=== PATIENT | male | born 1940 | race Two or more races ===

== ENCOUNTER 2018-12-08 12:49 | Inpatient (IN) | payer MEDICARE, OTHER ==
[~2018-12-08] VITALS: Ht 157.5 cm; Wt 60.8 kg
--- NOTE | 2018-12-08 13:30 | NUR ---
patient presented to the ER "Dx w/dementia getting progressively agitated, angry and has tried to hurt family. Need help with placement". On ortiz air, breathing evenly andunlabored, ambulatory with steady gait. Connected to the monitor and pulse ox. kept comfortable, will continue to monitor accordingly.
[2018-12-08 13:48] LABS: BASOPHILS # (AUTO) 0.1 /CMM (0.0-0.2); BASOPHILS % (AUTO) 0.8 % (0.0-2.0); EOSINOPHILS % (AUTO) 6.6 % (0.0-6.0); HEMATOCRIT 45 % (39-51); HEMOGLOBIN 14.8 g/dL (13.5-17.5); LYMPHOCYTES # (AUTO) 0.5 /CMM (0.8-4.8); LYMPHOCYTES % (AUTO) 7.8 % (20.0-44.0); MEAN CORPUSCULAR HGB CONC 33 g/dl (31.0-36.0); MEAN CORPUSCULAR VOLUME 92 fL (80-96); MONOCYTES # (AUTO) 0.5 /CMM (0.1-1.30); MONOCYTES % (AUTO) 7.4 % (2.0-12.0); NEUTROPHILS # (AUTO) 5.1 /CMM (1.8-8.9); NEUTROPHILS % (AUTO) 77.4 % (43.0-81.0); PLATELET COUNT (AUTO) 278 /CMM (150-450); RED BLOOD CELL COUNT(AUTO) 4.85 MIL/uL (4.5-6.0); WHITE BLOOD COUNT (AUTO) 6.5 K/uL (4.3-11.0)
[2018-12-08 13:58] LABS: CARBON DIOXIDE 31 mmol/L (21-32); CHLORIDE 107 mmol/L (98-107); CREATININE 2.2 mg/dL (0.6-1.3); GLUCOSE 103 mg/dL (74-106); POTASSIUM 3.8 mmol/L (3.5-5.1); SODIUM SERUM 145 mmol/L (136-145); UREA NITROGEN, BLOOD 23 mg/dL (7-18)
[2018-12-08 14:03] LABS: ALANINE AMINOTRANSFERASE 20 U/L (12-78); ALBUMIN 2.9 g/dL (3.4-5.0); ALCOHOL, BLOOD < 3 mg/dL (0-0); ALKALINE PHOSPHATASE 110 U/L (46-116); ASPARTATE AMINOTRANSFERASE 29 U/L (15-37); BILIRUBIN,DIRECT 0.2 mg/dL (0.0-0.2); BILIRUBIN,TOTAL 0.7 mg/dL (0.2-1.0); TOTAL PROTEIN, SERUM 7.4 g/dL (6.4-8.2)
[2018-12-08 14:08] LABS: SALICYLATE < 0.2 mg/dL (2.8-20.0)
[2018-12-08 14:32] LABS: ACETAMINOPHEN 0 ug/ml (10-30)
[2018-12-08 14:47] LABS: APPEARANCE,URINE Clear (CLEAR); BILIRUBIN,URINE Negative (NEGATIVE); BLOOD, URINE Small Ery/uL (NEGATIVE); COLOR,URINE Yellow (YELLOW); KETONES,URINE Negative (NEGATIVE); LEUKOCYTE ESTERASE ,URINE Negative (NEGATIVE); NITRITE, URINE Negative (NEGATIVE); PROTEIN,URINE >=300 mg/dl (NEGATIVE); UGLUCOSE Negative (NEGATIVE); UROBILINOGEN,URINE 0.2 EU/dL (0.2)
[2018-12-08 14:49] LABS: BACTERIA,URINE Rare /HPF (None Seen); SQUAMOUS EPITHELIAL CELL,UR Rare /HPF (None Seen); WBC,URINE 0-2 /HPF (0-3)
--- NOTE | 2018-12-08 14:55 | NUR ---
CALLED [facility] ETA 1 HR
--- NOTE | 2018-12-08 16:30 | NUR ---
GPS/DIFFUSION OPERATOR PATIENT ADMITTED FROM ER IN STABLE CONDITION TRANSFERRED VIA WC. A/O X 2, YORUBA SPEAKING. PER 5150 PATIENT NOTED WITH AGGRESSIVE BEHAVIOR AND CONFUSION, ALSO NON COMPLIANT WITH MEDICATION. PER 1:1 ASSESSMENT PATIENT NOTED WITH EPISODES OF CONFUSION AT THIS TIME. ABLE TO MAKE NEEDS KNOWN, COOPERATIVE. NO S/S OF RESPIRATORY DISTRESS. NO COMPLAIN OF PAIN OR DISCOMFORT. NO S/S OF AGITATION OR AGGRESSIVE BEHAVIOR NOTED AT THIS TIME. NOTED WITH ELEVATED BP OF 204/98, 66. JAZLYN SALMON ADMITTING HOSPITALIST NOTIFIED WITH ORDERS TO GIVE HYDRALAZINE 50MG PO X 1, METOPROLOL 12.5MG PO X 1, COREG 3.125MG PO X 1. ALSO NOTIFIED TO JAZLYN SALMON PATIENT CURRENTLY ON WARFARIN WITH DOSE OF 2.5MG AND 5 MG PO QD, SINCE PATIENT HAS TWO DIFFERENT WARFARIN MEDICATION BOTTLE. NOTED AND CARRIED OUT. PATIENT NOTIFIED.
--- NOTE | 2018-12-08 16:30 | NUR ---
wheeled patient via wheelchair accompanied by emt in no apparent distress noted, going to GPS room 214.
[2018-12-08] MEDS ORDERED: WARF-68 PO (17:23)
[2018-12-08] MEDS ORDERED: LEVO25TA7 GT (17:23)
[2018-12-08] MEDS ORDERED: FURO-144 PO (17:26)
[2018-12-08] MEDS ORDERED: LISI10TA5 PO (17:26)
[2018-12-08] MEDS ORDERED: WARF-58 PO (17:26)
[2018-12-08] MEDS ORDERED: QUET25TA PO (17:26)
[2018-12-08] MEDS ORDERED: HYDR-4077 PO (17:26)
[2018-12-08] MEDS ORDERED: CARV3.12 PO (17:26)
[2018-12-08] MEDS ORDERED: METO25TA6 PO (17:28)
[2018-12-08] MEDS ORDERED: MEMA5TAB PO (17:28)
[2018-12-08 17:56] VITALS: BP 204/98
[2018-12-08] MEDS ORDERED: WARFARIN SODIUM 5 MG TABLET PO SCH (17:58)
[2018-12-08] MEDS ORDERED: MAGNESIUM HYDROXIDE 30 ML UDC PO PRN (18:00)
[2018-12-08] MEDS ORDERED: LORAZEPAM 0.5 MG TABLET PO PRN (18:00)
[2018-12-08] MEDS ORDERED: TEMAZEPAM 7.5 MG CAPSULE PO PRN (18:00)
[2018-12-08] MEDS ORDERED: METOPROLOL TARTRATE 25 MG TABLET PO ONE (18:00)
[2018-12-08] MEDS ORDERED: CARVEDILOL 3.125 MG TABLET PO ONE (18:00)
[2018-12-08] MEDS ORDERED: MAG HYDROX/AL HYDROX/SIMETH 30 ML UDC PO PRN (18:00)
[2018-12-08] MEDS ORDERED: hydrALAZINE HCL 50 MG TABLET PO ONE (18:00)
[2018-12-08] MEDS ORDERED: ACETAMINOPHEN 325 MG TABLET PO PRN (18:00)
[2018-12-08] MEDS ORDERED: ATOR40TA PO (18:24)
[2018-12-08] MEDS ORDERED: METOPROLOL TARTRATE 25 MG TABLET PO SCH (19:00)
[2018-12-08 20:01] VITALS: BP 155/66
[2018-12-08] MEDS: MEMANTINE HCL 5 MG TABLET PO SCH (21:39)
[2018-12-08] MEDS: ATORVASTATIN 40 MG TABLET PO SCH (21:39)
[2018-12-08] MEDS: hydrALAZINE HCL 50 MG TABLET PO SCH (21:40)
--- NOTE | 2018-12-09 | NUR ---
SUPERVISOR PARK WORKERS NOTES PT SLEEPING COMFORTABLY IN BED WITHOUT ANY ACUTE DISTRESS NOTED. KEPT HIM WARM AND COMFORTABLE AT ALL TIMES. WILL CONTINUE MONITORING FOR SAFETY.
[2018-12-09] MEDS: LEVOTHYROXINE SODIUM 25 MCG TABLET GT SCH (06:52)
[2018-12-09 08:08] LABS: ALANINE AMINOTRANSFERASE 16 U/L (12-78); ALBUMIN 2.6 g/dL (3.4-5.0); ALKALINE PHOSPHATASE 98 U/L (46-116); ASPARTATE AMINOTRANSFERASE 24 U/L (15-37); BILIRUBIN,TOTAL 0.7 mg/dL (0.2-1.0); CALCIUM, SERUM 8.7 mg/dL (8.5-10.1); CARBON DIOXIDE 23 mmol/L (21-32); CHLORIDE 109 mmol/L (98-107); CREATININE 1.9 mg/dL (0.6-1.3); GLUCOSE 94 mg/dL (74-106); POTASSIUM 3.9 mmol/L (3.5-5.1); SODIUM SERUM 142 mmol/L (136-145); TOTAL PROTEIN, SERUM 6.8 g/dL (6.4-8.2); UREA NITROGEN, BLOOD 24 mg/dL (7-18)
[2018-12-09 08:12] LABS: CHOLESTEROL 213 mg/dL (<200); HDL CHOLESTEROL 35 mg/dL (40-60); LDL 149 mg/dL (0-99); TRIGLYCERIDES 141 mg/dL (30-150)
[2018-12-09 08:27] VITALS: BP_SYST 132; BP_DIAS 66; BP_DIAS 74
[2018-12-09] MEDS: hydrALAZINE HCL 50 MG TABLET PO SCH ×3 (09:34→16:22)
[2018-12-09] MEDS: MEMANTINE HCL 5 MG TABLET PO SCH ×2 (09:34→16:20)
[2018-12-09] MEDS: METOPROLOL TARTRATE 25 MG TABLET PO SCH ×2 (09:35→16:23)
[2018-12-09] MEDS: CARVEDILOL 3.125 MG TABLET PO SCH ×3 (09:35→16:22)
--- NOTE | 2018-12-09 13:30 | NUR ---
RN-CO: Patient was seen and examined by Dr Ivy with orders noted.
--- NOTE | 2018-12-09 13:33 | NUR ---
GILL contacted pts brenden Wynne [phone] for collateral information and discharge planning. Nephew stated that pt was diagnosed with Dementia a year ago and his behavior has exacerbated in the past month. Nephew stated pt has become very aggressive and is unable to care for him. Nephew stated pt currently lives with his brother but due to pts aggressive behavior pt needs locked SNF placement.
--- NOTE | 2018-12-09 14:47 | NUR ---
INITIAL DISCHARGE PLAN: Per pts brenden Wynne [phone] pt needs locked SNF placement due to pts aggressive behavior. SW will help form a safe and proper discharge in collaboration with .
--- NOTE | 2018-12-09 15:54 | NUR ---
RN-CO: Spoke with "Mere Miranda NP regarding her order to transfer the patient to telemetry 12/08. She stated that Jeffry Salinas took over the case. She ordered to cancel the order, noted and carried out.
[2018-12-09 16:00] VITALS: BP 129/76
--- NOTE | 2018-12-09 16:08 | NUR ---
SUPPORTIVE COUNSELING: SW eased pts anxiety regarding leaving the facility by explaining to him that his estimated length of stay in between 7-10 days. SW explained that psychiatrist will be prescribing him medication to help with his anger. SW encouraged medication compliance to increase insight into mental illness.
[2018-12-09] MEDS: WARFARIN SODIUM 2 MG TABLET PO SCH (16:25)
[2018-12-09] MEDS: DIVALPROEX SODIUM 125 MG TABLET.DR PO SCH ×2 (16:34→20:50)
[2018-12-09] MEDS: ATORVASTATIN 40 MG TABLET PO SCH (17:25)
[2018-12-09 17:43] LABS: APPEARANCE,URINE CLEAR (CLEAR); BILIRUBIN,URINE NEGATIVE (NEGATIVE); BLOOD, URINE TRACE-INTA Ery/uL (NEGATIVE); COLOR,URINE YELLOW (YELLOW); KETONES,URINE NEGATIVE (NEGATIVE); LEUKOCYTE ESTERASE ,URINE NEGATIVE (NEGATIVE); NITRITE, URINE NEGATIVE (NEGATIVE); PH,URINE 6.5 (5.0-8.0); PROTEIN,URINE 3+ mg/dl (NEGATIVE); UGLUCOSE NEGATIVE (NEGATIVE); UROBILINOGEN,URINE 0.2 EU/dL (0.2)
[2018-12-09 18:03] LABS: BACTERIA,URINE Rare /HPF (None Seen); RBC,URINE 0-3 /HPF (0-2); SQUAMOUS EPITHELIAL CELL,UR Rare /HPF (None Seen); WBC,URINE 0-2 /HPF (0-3)
[2018-12-09 18:24] LABS: CREATININE, URINE 91.6 MG/DL (30.0-125.0); URINE TOTAL PROTEIN 786.3 mg/dL (0-11.9)
[2018-12-09 18:41] LABS: EOSINOPHIL,URINE None Seen
[2018-12-09 19:43] VITALS: BP 113/48
[2018-12-09] MEDS: QUETIAPINE FUMARATE 25 MG TABLET PO SCH (21:06)
[2018-12-10] MEDS: LEVOTHYROXINE SODIUM 25 MCG TABLET GT SCH (06:04)
[2018-12-10 07:36] LABS: BASOPHILS # (AUTO) 0.1 /CMM (0.0-0.2); BASOPHILS % (AUTO) 1.2 % (0.0-2.0); EOSINOPHILS % (AUTO) 12.1 % (0.0-6.0); HEMATOCRIT 42 % (39-51); HEMOGLOBIN 14.1 g/dL (13.5-17.5); LYMPHOCYTES # (AUTO) 0.8 /CMM (0.8-4.8); LYMPHOCYTES % (AUTO) 16.2 % (20.0-44.0); MEAN CORPUSCULAR HGB CONC 34 g/dl (31.0-36.0); MEAN CORPUSCULAR VOLUME 91 fL (80-96); MONOCYTES # (AUTO) 0.5 /CMM (0.1-1.30); MONOCYTES % (AUTO) 9.6 % (2.0-12.0); NEUTROPHILS # (AUTO) 3.1 /CMM (1.8-8.9); NEUTROPHILS % (AUTO) 60.9 % (43.0-81.0); PLATELET COUNT (AUTO) 251 /CMM (150-450); RED BLOOD CELL COUNT(AUTO) 4.59 MIL/uL (4.5-6.0); WHITE BLOOD COUNT (AUTO) 5.1 K/uL (4.3-11.0)
[2018-12-10 07:39] LABS: CREATINE KINASE, TOTAL 272 U/L (39-308)
[2018-12-10 07:43] LABS: ALANINE AMINOTRANSFERASE 14 U/L (12-78); ALBUMIN 2.7 g/dL (3.4-5.0); ALKALINE PHOSPHATASE 99 U/L (46-116); ASPARTATE AMINOTRANSFERASE 23 U/L (15-37); BILIRUBIN,TOTAL 0.5 mg/dL (0.2-1.0); CARBON DIOXIDE 27 mmol/L (21-32); CHLORIDE 108 mmol/L (98-107); GLUCOSE 86 mg/dL (74-106); MAGNESIUM 2.1 mg/dL (1.8-2.4); PHOSPHORUS 3.5 mg/dL (2.5-4.9); POTASSIUM 4.4 mmol/L (3.5-5.1); SODIUM SERUM 143 mmol/L (136-145); TOTAL PROTEIN, SERUM 6.8 g/dL (6.4-8.2); UREA NITROGEN, BLOOD 25 mg/dL (7-18)
[2018-12-10 08:00] VITALS: BP 160/62
[2018-12-10] MEDS: DIVALPROEX SODIUM 125 MG TABLET.DR PO SCH ×3 (08:15→21:15)
[2018-12-10] MEDS: METOPROLOL TARTRATE 25 MG TABLET PO SCH ×2 (08:16→16:31)
[2018-12-10] MEDS: MEMANTINE HCL 5 MG TABLET PO SCH ×2 (08:17→16:35)
[2018-12-10] MEDS: CARVEDILOL 3.125 MG TABLET PO SCH ×3 (08:17→16:33)
[2018-12-10] MEDS: hydrALAZINE HCL 50 MG TABLET PO SCH ×3 (08:17→16:33)
--- NOTE | 2018-12-10 10:50 | NUR ---
Dr. Waldrop in the unit and notified about the PT/INR and said continue same dose.
[2018-12-10 12:42] VITALS: BP 146/66
[2018-12-10 16:00] VITALS: BP 133/68
[2018-12-10] MEDS: WARFARIN SODIUM 2 MG TABLET PO SCH (16:35)
[2018-12-10] MEDS: ATORVASTATIN 40 MG TABLET PO SCH (17:06)
[2018-12-10 20:00] VITALS: BP 134/57
[2018-12-10] MEDS: QUETIAPINE FUMARATE 25 MG TABLET PO SCH (21:15)
[2018-12-11] MEDS: LEVOTHYROXINE SODIUM 25 MCG TABLET GT SCH (06:05)
[2018-12-11 07:24] LABS: ALANINE AMINOTRANSFERASE 14 U/L (12-78); ALBUMIN 2.5 g/dL (3.4-5.0); ALKALINE PHOSPHATASE 90 U/L (46-116); ASPARTATE AMINOTRANSFERASE 19 U/L (15-37); BILIRUBIN,TOTAL 0.5 mg/dL (0.2-1.0); CALCIUM, SERUM 8.6 mg/dL (8.5-10.1); CARBON DIOXIDE 23 mmol/L (21-32); CHLORIDE 109 mmol/L (98-107); GLUCOSE 83 mg/dL (74-106); MAGNESIUM 2.1 mg/dL (1.8-2.4); PHOSPHORUS 3.6 mg/dL (2.5-4.9); POTASSIUM 4.2 mmol/L (3.5-5.1); SODIUM SERUM 143 mmol/L (136-145); TOTAL PROTEIN, SERUM 6.4 g/dL (6.4-8.2); UREA NITROGEN, BLOOD 29 mg/dL (7-18)
[2018-12-11 07:28] LABS: BASOPHILS % (AUTO) 0.9 % (0.0-2.0); EOSINOPHILS % (AUTO) 11.6 % (0.0-6.0); HEMATOCRIT 40 % (39-51); HEMOGLOBIN 13.4 g/dL (13.5-17.5); LYMPHOCYTES # (AUTO) 0.9 /CMM (0.8-4.8); MEAN CORPUSCULAR HGB CONC 34 g/dl (31.0-36.0); MEAN CORPUSCULAR VOLUME 90 fL (80-96); MONOCYTES # (AUTO) 0.5 /CMM (0.1-1.30); MONOCYTES % (AUTO) 9.9 % (2.0-12.0); NEUTROPHILS # (AUTO) 3.3 /CMM (1.8-8.9); NEUTROPHILS % (AUTO) 60.6 % (43.0-81.0); PLATELET COUNT (AUTO) 240 /CMM (150-450); RED BLOOD CELL COUNT(AUTO) 4.39 MIL/uL (4.5-6.0); WHITE BLOOD COUNT (AUTO) 5.4 K/uL (4.3-11.0)
[2018-12-11 08:00] VITALS: BP 156/57
[2018-12-11] MEDS: MEMANTINE HCL 5 MG TABLET PO SCH ×2 (09:08→18:09)
[2018-12-11] MEDS: hydrALAZINE HCL 50 MG TABLET PO SCH ×3 (09:08→18:07)
[2018-12-11] MEDS: DIVALPROEX SODIUM 125 MG TABLET.DR PO SCH ×3 (09:08→21:16)
[2018-12-11] MEDS: METOPROLOL TARTRATE 25 MG TABLET PO SCH ×2 (09:09→18:08)
[2018-12-11 11:08] LABS: *SPE A/G RATIO 0.9 (0.7-1.7); *SPE ALBUMIN 3.1 g/dL (2.9-4.4); *SPE ALPHA-1-GLOBULIN 0.3 g/dL (0.0-0.4); *SPE ALPHA-2-GLOBULIN 0.6 g/dL (0.4-1.0); *SPE BETA GLOBULIN 1.1 g/dL (0.7-1.3); *SPE GLOBULIN, TOTAL 3.3 g/dL (2.2-3.9); *SPE M-SPIKE Not Observed g/dL (Not Observed); *SPEGAMMA GLOBULIN 1.4 g/dL (0.4-1.8)
[2018-12-11 13:08] LABS: PTH, INTACT 193 pg/mL (15-65)
--- NOTE | 2018-12-11 14:48 | NUR ---
Lexi was made aware about inr and pt result with new orders for coumadin noted.
--- NOTE | 2018-12-11 15:37 | NUR ---
SUPPORTIVE COUNSELING: Pts mood is pleasant but continues to lack insight into his mental illness. Pt is focused on being discharged. Pt has been withdrawn. SW attempted to have a reality based conversation with pt regarding his discharge and pt became agitated stating he refused to go to a usp and wanted to go home.
[2018-12-11 16:00] VITALS: BP 143/75
[2018-12-11 16:34] VITALS: BP 143/75
[2018-12-11] MEDS: ATORVASTATIN 40 MG TABLET PO SCH (18:06)
[2018-12-11] MEDS: WARFARIN SODIUM 5 MG TABLET PO SCH (18:11)
[2018-12-11] MEDS: WARFARIN SODIUM 1 MG TABLET PO SCH (18:13)
[2018-12-11 19:58] VITALS: BP 150/93
[2018-12-11] MEDS: QUETIAPINE FUMARATE 25 MG TABLET PO SCH (21:16)
[2018-12-12] MEDS: LEVOTHYROXINE SODIUM 25 MCG TABLET GT SCH (05:34)
[2018-12-12 08:00] VITALS: BP 153/82
--- NOTE | 2018-12-12 08:30 | NUR ---
RECEIVED PT. ALERT AND ORIENTED X2.NO ACUTE DISTRESS.VS STABLE.
[2018-12-12] MEDS: MEMANTINE HCL 5 MG TABLET PO SCH ×2 (09:42→17:53)
[2018-12-12] MEDS: hydrALAZINE HCL 50 MG TABLET PO SCH ×3 (09:42→17:56)
[2018-12-12] MEDS: DIVALPROEX SODIUM 125 MG TABLET.DR PO SCH ×3 (09:43→21:05)
[2018-12-12] MEDS: METOPROLOL TARTRATE 25 MG TABLET PO SCH ×2 (09:43→17:55)
--- NOTE | 2018-12-12 15:00 | NUR ---
DR. COX,DR. ADLER IN TO SEE PT.
[2018-12-12 16:00] VITALS: BP 150/59
[2018-12-12] MEDS: WARFARIN SODIUM 5 MG TABLET PO SCH (17:50)
[2018-12-12] MEDS: WARFARIN SODIUM 1 MG TABLET PO SCH (17:52)
[2018-12-12] MEDS: ATORVASTATIN 40 MG TABLET PO SCH (17:55)
--- NOTE | 2018-12-12 18:56 | NUR ---
NO CHANGE IN STATUS.
[2018-12-12 20:00] VITALS: BP 131/49
[2018-12-12] MEDS: QUETIAPINE FUMARATE 25 MG TABLET PO SCH (21:06)
[2018-12-13] MEDS: LEVOTHYROXINE SODIUM 25 MCG TABLET GT SCH (05:20)
[2018-12-13 08:00] VITALS: BP 168/75
[2018-12-13] MEDS: DIVALPROEX SODIUM 125 MG TABLET.DR PO SCH ×3 (08:21→21:50)
[2018-12-13] MEDS: METOPROLOL TARTRATE 25 MG TABLET PO SCH ×2 (08:22→17:16)
[2018-12-13] MEDS: MEMANTINE HCL 5 MG TABLET PO SCH ×2 (08:22→17:15)
[2018-12-13] MEDS: hydrALAZINE HCL 50 MG TABLET PO SCH ×3 (08:22→17:15)
[2018-12-13 12:30] VITALS: BP 157/63
[2018-12-13 16:00] VITALS: BP 157/84
[2018-12-13] MEDS: WARFARIN SODIUM 1 MG TABLET PO SCH (16:18)
[2018-12-13] MEDS: WARFARIN SODIUM 5 MG TABLET PO SCH (16:18)
[2018-12-13] MEDS: ATORVASTATIN 40 MG TABLET PO SCH (17:15)
[2018-12-13 19:40] VITALS: BP 128/59
[2018-12-13] MEDS: QUETIAPINE FUMARATE 25 MG TABLET PO SCH (21:50)
[2018-12-14] MEDS: LEVOTHYROXINE SODIUM 25 MCG TABLET GT SCH (05:48)
--- NOTE | 2018-12-14 07:45 | NUR ---
RN NOTE: RECEIVED PATIENT IN BED, AWAKE, ALERT AND ABLE TO MAKE HIS NEEDS KNOWN. RESPIRATION EVEN AND UNLABORED. DENIED ANY PAIN. MOSTLY SOUTH SUDANESE SPEAKING ONLY. DENIED ANY SUICIDAL THOUGHTS/IDEATION, NO AUDITORY/VISUAL HALLUCINATIONS NOTED. REMAINED ISOLATED INSIDE HIS ROOM. REFUSED TO GO OUT TO THE ACTIVITY ROOM. BED ALARMED AND LOCKED AT ALL TIMES. NEED ANTICIPATED. CALL ÁLVAREZ WITHIN REACH.
[2018-12-14 08:00] VITALS: BP 156/67
[2018-12-14] MEDS: MEMANTINE HCL 5 MG TABLET PO SCH ×2 (09:09→16:52)
[2018-12-14] MEDS: DIVALPROEX SODIUM 125 MG TABLET.DR PO SCH ×3 (09:09→21:01)
[2018-12-14] MEDS: hydrALAZINE HCL 50 MG TABLET PO SCH ×3 (09:10→16:52)
[2018-12-14] MEDS: METOPROLOL TARTRATE 25 MG TABLET PO SCH ×2 (09:11→16:52)
--- NOTE | 2018-12-14 09:18 | NUR ---
SNF REFERRAL: GILL faxed SNF referral to antione Sifuentes at [facility] Address: [address] [place] [address] for review.
--- NOTE | 2018-12-14 09:48 | NUR ---
GILL contacted pts brenden Wynne [phone] and discussed pts discharge to a fpc. GILL explained that pt is refusing to be discharged to a fpc and suggested he come visit pt and discuss placement with pt. Nephew agreed and stated he would be coming on this present day to visit pt.
--- NOTE | 2018-12-14 12:01 | NUR ---
SW received a call from Viola, branch operations coordinator at [facility] Address: [address] [place] [address] stating pt has been accepted to the facility.
--- NOTE | 2018-12-14 12:02 | NUR ---
GILL contacted pts brenden Wynne [phone] and informed him pt has been accepted to [facility], Nephew stated he would be coming Friday12/15/18 to visit pt as he was unable to leave work early on this present day.
--- NOTE | 2018-12-14 15:30 | NUR ---
SUPPORTIVE COUNSELING: SW spoke with pt regarding his probable cause hearing scheduled for 12/15/18 and discharge plan. Pt became emotional when SW explained that pts family is concerned that pt will become aggressive and not comply with his medication if discharged home. Pt understood and stated he admits he acted out aggressively but regrets it and wishes to return home, pt also stated he does not want to go to a care home as he stated he does not need to be in one. Pt stated that he wants his nephew to be present at his PC Hearing, SW mentioned to him that she would contact nephew and inform him of hearing.
--- NOTE | 2018-12-14 15:41 | NUR ---
GILL contacted pts nephew Ricci [phone] and informed him pt is scheduled for a Probable Cause Hearing on Friday12/15/18 at 1:00pm, GILL informed him that pt has requested he be present. Ricci agreed and stated he would be here at 12:30pm.
--- NOTE | 2018-12-14 16:20 | NUR ---
RN NOTE: PAGED LUIS ANTONIO GALDAMEZ NP REGARDING THE PT/INR RESULT FOR TODAY. AWAITING FOR RESPONSE.
--- NOTE | 2018-12-14 16:41 | NUR ---
RN NOTE: SPOKE WITH LUIS ANTONIO GALDAMEZ NP REGARDING THE PT/INR (31.4/3.16) RESULT TODAY AND REAL ESTATE SITE ANALYST WAS INFORMED ABOUT THE PREVIOUS INR RESULT OF 3.91. PER JAZLYN SALMON OK TO GIVE COUMADIN 5.5 MG PO TODAY.
[2018-12-14 17:00] VITALS: BP 150/91
[2018-12-14] MEDS: WARFARIN SODIUM 1 MG TABLET PO SCH (17:06)
[2018-12-14] MEDS: WARFARIN SODIUM 5 MG TABLET PO SCH (17:06)
[2018-12-14] MEDS: ATORVASTATIN 40 MG TABLET PO SCH (17:11)
--- NOTE | 2018-12-14 19:45 | NUR ---
RN NOTE: REPORT GIVEN TO PM SHIFT FOR CONTINUITY OF CARE. NO BEHAVIORAL ISSUES NOTED.
[2018-12-14 19:54] VITALS: BP 153/75
[2018-12-14] MEDS: QUETIAPINE FUMARATE 25 MG TABLET PO SCH (21:00)
[2018-12-15] MEDS: LEVOTHYROXINE SODIUM 25 MCG TABLET GT SCH (06:02)
[2018-12-15 06:50] LABS: BASOPHILS # (AUTO) 0.1 /CMM (0.0-0.2); BASOPHILS % (AUTO) 1.1 % (0.0-2.0); EOSINOPHILS % (AUTO) 13.5 % (0.0-6.0); HEMATOCRIT 43 % (39-51); HEMOGLOBIN 14.3 g/dL (13.5-17.5); LYMPHOCYTES # (AUTO) 0.9 /CMM (0.8-4.8); LYMPHOCYTES % (AUTO) 18.1 % (20.0-44.0); MEAN CORPUSCULAR HGB CONC 33 g/dl (31.0-36.0); MEAN CORPUSCULAR VOLUME 91 fL (80-96); MONOCYTES # (AUTO) 0.7 /CMM (0.1-1.30); NEUTROPHILS # (AUTO) 2.8 /CMM (1.8-8.9); NEUTROPHILS % (AUTO) 54.3 % (43.0-81.0); PLATELET COUNT (AUTO) 250 /CMM (150-450); RED BLOOD CELL COUNT(AUTO) 4.75 MIL/uL (4.5-6.0); WHITE BLOOD COUNT (AUTO) 5.2 K/uL (4.3-11.0)
[2018-12-15 07:15] LABS: CALCIUM, SERUM 8.9 mg/dL (8.5-10.1); CARBON DIOXIDE 23 mmol/L (21-32); CHLORIDE 110 mmol/L (98-107); CREATININE 1.9 mg/dL (0.6-1.3); GLUCOSE 81 mg/dL (74-106); PHOSPHORUS 3.4 mg/dL (2.5-4.9); POTASSIUM 4.1 mmol/L (3.5-5.1); SODIUM SERUM 144 mmol/L (136-145); UREA NITROGEN, BLOOD 32 mg/dL (7-18)
[2018-12-15 08:00] VITALS: BP 144/85
[2018-12-15] MEDS: METOPROLOL TARTRATE 25 MG TABLET PO SCH ×2 (09:21→17:43)
[2018-12-15] MEDS: hydrALAZINE HCL 50 MG TABLET PO SCH ×3 (09:22→17:43)
[2018-12-15] MEDS: DIVALPROEX SODIUM 125 MG TABLET.DR PO SCH ×3 (09:22→20:09)
[2018-12-15] MEDS: MEMANTINE HCL 5 MG TABLET PO SCH ×2 (09:22→17:42)
--- NOTE | 2018-12-15 14:24 | NUR ---
GILL met with pts brenden Wynne [phone] and discussed pts discharge plan to [facility] and he also attended pts PC HEARING on this present day. Nephew stated he would be touring [facility] and informing GILL if he approves of it or not, GILL also provided nephew with a referral to [facility] in case he did not approve of [facility]. GILL asked nephew to contact her as soon as possible if he wanted SW to refer pt elsewhere
--- NOTE | 2018-12-15 15:13 | NUR ---
SUPPORTIVE COUNSELING: SW prompted pt to attend group therapy. Pt refused and stated he was tired and wanted to rest.
[2018-12-15 16:00] VITALS: BP 150/90
[2018-12-15] MEDS: ATORVASTATIN 40 MG TABLET PO SCH (17:42)
[2018-12-15] MEDS: WARFARIN SODIUM 5 MG TABLET PO SCH (17:45)
[2018-12-15] MEDS: WARFARIN SODIUM 1 MG TABLET PO SCH (17:46)
--- NOTE | 2018-12-15 18:00 | NUR ---
coumadin given as per orders in line with coag. report.pt. quiet and cooperative.
[2018-12-15 19:59] VITALS: BP 145/73
--- NOTE | 2018-12-15 20:00 | NUR ---
GPS/RN OPENING NOTES RECEIVED PATIENT AWAKE, ALERT, RESPIRATIONS EVEN AND UNLABORED, CAN FOLLOW SIMPLE COMMANDS, COOPERATIVE TO CARE. REQUIRE REORIENTATION AND ASSISTANCE FOR SAFETY. MONITORING FOR ANY CHANGES.
[2018-12-15 20:04] VITALS: BP 145/73
[2018-12-15] MEDS: QUETIAPINE FUMARATE 25 MG TABLET PO SCH (21:17)
[2018-12-16] MEDS: LEVOTHYROXINE SODIUM 25 MCG TABLET GT SCH (05:55)
[2018-12-16 08:00] VITALS: BP 147/77
[2018-12-16] MEDS: hydrALAZINE HCL 50 MG TABLET PO SCH ×3 (08:29→16:45)
[2018-12-16] MEDS: MEMANTINE HCL 5 MG TABLET PO SCH ×2 (08:29→16:45)
[2018-12-16] MEDS: DIVALPROEX SODIUM 125 MG TABLET.DR PO SCH ×3 (08:30→21:19)
[2018-12-16] MEDS: METOPROLOL TARTRATE 25 MG TABLET PO SCH ×2 (08:30→16:44)
--- NOTE | 2018-12-16 10:20 | NUR ---
GILL received a call from pts dandyanthony Ricci [phone] stating he approved of [facility]. GILL will coordinate discharge to [facility] on 12/17/18.
--- NOTE | 2018-12-16 13:54 | NUR ---
Group note: Pt attended a group session on 12/16/18 at 11AM discussing the topic of what their goals are for when they are in the hospital and once they are discharged. S: Pt stated, My goal for while I am a patient in the hospital is to remain calm and learn how to not act out because I know that is why I am here. O: Pt was present during the group session and was cooperative. Pt appeared to be in a euthymic mood and presented with a calm affect. Pt maintained appropriate eye contact and her tone of voice appeared to be very calm and pleasant throughout the group. Activities therapist, Stanford, assisted the SW and the pt in communicating by translating in Thai. A: Pt understood that he acted out aggressively and inappropriately and that is why he was admitted to the hospital. Pt stated that he understands that he needs to manage his anger more appropriately and to use his words to communicate instead of becoming aggressive. Pt stated that he would continue to work towards appropriate behavior. P: Pt will continue milieu treatment and medication stabilization.
[2018-12-16 16:00] VITALS: BP 140/66
[2018-12-16] MEDS: WARFARIN SODIUM 1 MG TABLET PO SCH (16:46)
[2018-12-16] MEDS: WARFARIN SODIUM 5 MG TABLET PO SCH (16:47)
[2018-12-16] MEDS: ATORVASTATIN 40 MG TABLET PO SCH (18:01)
[2018-12-16 20:00] VITALS: BP 148/52
[2018-12-16 20:27] VITALS: BP 148/52
[2018-12-16] MEDS: QUETIAPINE FUMARATE 25 MG TABLET PO SCH (21:19)
[2018-12-17] MEDS: LEVOTHYROXINE SODIUM 25 MCG TABLET GT SCH (06:19)
[2018-12-17 07:04] LABS: BASOPHILS # (AUTO) 0.1 /CMM (0.0-0.2); BASOPHILS % (AUTO) 0.9 % (0.0-2.0); HEMATOCRIT 43 % (39-51); HEMOGLOBIN 14.3 g/dL (13.5-17.5); LYMPHOCYTES % (AUTO) 15.6 % (20.0-44.0); MEAN CORPUSCULAR HGB CONC 34 g/dl (31.0-36.0); MEAN CORPUSCULAR VOLUME 92 fL (80-96); MONOCYTES # (AUTO) 0.7 /CMM (0.1-1.30); MONOCYTES % (AUTO) 11.9 % (2.0-12.0); NEUTROPHILS # (AUTO) 3.6 /CMM (1.8-8.9); NEUTROPHILS % (AUTO) 58.6 % (43.0-81.0); PLATELET COUNT (AUTO) 236 /CMM (150-450); RED BLOOD CELL COUNT(AUTO) 4.65 MIL/uL (4.5-6.0); WHITE BLOOD COUNT (AUTO) 6.2 K/uL (4.3-11.0)
[2018-12-17 07:24] LABS: CALCIUM, SERUM 8.6 mg/dL (8.5-10.1); CARBON DIOXIDE 23 mmol/L (21-32); CHLORIDE 109 mmol/L (98-107); CREATININE 1.9 mg/dL (0.6-1.3); GLUCOSE 88 mg/dL (74-106); PHOSPHORUS 3.4 mg/dL (2.5-4.9); POTASSIUM 4.7 mmol/L (3.5-5.1); SODIUM SERUM 141 mmol/L (136-145); UREA NITROGEN, BLOOD 34 mg/dL (7-18)
[2018-12-17 08:00] VITALS: BP 154/71
[2018-12-17] MEDS: MEMANTINE HCL 5 MG TABLET PO SCH (09:00)
[2018-12-17] MEDS: DIVALPROEX SODIUM 125 MG TABLET.DR PO SCH (09:00)
[2018-12-17] MEDS: METOPROLOL TARTRATE 25 MG TABLET PO SCH ×2 (09:01→09:08)
[2018-12-17] MEDS: hydrALAZINE HCL 50 MG TABLET PO SCH ×3 (09:01→12:29)
--- NOTE | 2018-12-17 10:29 | NUR ---
DISCHARGE NOTE: Pt will be discharged at 12:30pm via [facility] to [facility] ([facility]) Address: [address] [place] [address] . Pts Nephanthony Wynne [phone] has been notified and agrees with discharge plan. Pts mood is euthymic with congruent affect. Pt denied visual/auditory hallucinations and denied suicidal/homicidal ideation. Pt will be under the care of Psychiatrist: Dr. Jamal Gar[facility] [address] [address] [phone] and Wood Crafter: Dr. Thu Campoverde Address: [address] [place] [id number] Phone: . The multidisciplinary exitcare form was done, printed, signed, and given to the patient.
[2018-12-17] MEDS ORDERED: LISINOPRIL (10MG) 10 MG TABLET PO SCH (11:00)
[2018-12-17 12:29] VITALS: BP 145/60
--- NOTE | 2018-12-17 13:02 | NUR ---
RN NOTE: PATIENT IS A 78 Y/O MALE THAT WAS DISCHARGED FROM [facility] GPS UNIT IN STABLE CONDITION. DR. HARRELL AND DR. GALDAMEZ WERE AWARE OF THE DC WITH DC ORDERS IN PLACE/MED RECON COMPLETE. DR. ADLER AWARE OF DISCHARGE D/T COVERING FOR DR. HARRELL. PATIENT IS ALERT AND ORIENTED X 2, COMPLIANT WITH MEDICATION ADMINISTRATION AND COOPERATIVE WITH PLAN OF CARE. PATIENT'S VS WERE STABLE. SKIN INTACT. NO DISTRESS NOTED. NO COMPLAINTS FROM PATIENT. PATIENT DENIES SI/HI AT TIME OF DISCHARGE. PATIENT HAD LUNCH AND 12:00 MEDS GIVEN PRIOR TO LEAVING FACILITY. PATIENT WILL BE TRANSFERRED OVER TO [facility] AND [facility] ([facility]). REPORT WAS GIVEN TO BELINDA (KARIME) [phone]. EMT ARRIVED TO [employer] BROKER PATIENT. REPORT WAS GIVEN. PATIENT RECEIVED HIS BELONGINGS ALONG WITH DISCHARGE INSTRUCTIONS TO FOLLOW UP WITH PSYCH AND PCP. PATIENT LEFT UNIT ON A GURNEY VIA AMBULANCE AT 13:00.
== END 2018-12-17 13:00 | DRG 885 ==
LOC: ER 12:49 → GPS 16:47
PROVIDERS: ADMIT Psychiatry & Neurology Psychiatry
DX: F39 Unspecified mood [affective] disorder (principal); N18.9 Chronic kidney disease, unspecified; N17.9 Acute kidney failure, unspecified; F03.91 Unspecified dementia, unspecified severity, with behavioral disturbance; F29 Unspecified psychosis not due to a substance or known physiological condition; I12.9 Hypertensive chronic kidney disease with stage 1 through stage 4 chronic kidney disease, or unspecified chronic kidney disease; E03.9 Hypothyroidism, unspecified; Z86.73 Personal history of transient ischemic attack (TIA), and cerebral infarction without residual deficits; Z95.2 Presence of prosthetic heart valve; Z90.5 Acquired absence of kidney; K46.9 Unspecified abdominal hernia without obstruction or gangrene; Z79.01 Long term (current) use of anticoagulants; R79.1 Abnormal coagulation profile
CPT/HCPCS: 36415; 71045-TC; 76770-TC; 80048-TC; 80053-TC; 80061-TC; 80076-TC; 80305; 81000-TC; 82550-TC; 82570-TC; 83735-TC; 83970; 84100-TC; 84155; 84155-TC; 84165; 84300-TC; 85025-TC; 85610-TC; 85730-TC; 87081-TC; G0480

== ENCOUNTER 2019-08-12 13:09 | Inpatient (IN) | payer MEDICARE, OTHER ==
[~2019-08-12] VITALS: Ht 167.6 cm; Wt 72.6 kg
[~2019-08-12 13:09] MED LIST: ATOR40TA PO; CARV3.12 PO; FURO-144 PO; HYDR-4077 PO; LEVO25TA7 GT; LISI10TA5 PO; MEMA5TAB PO; METO25TA6 PO; QUET25TA PO; WARF-58 PO; WARF-68 PO
[2019-08-12] MEDS ORDERED: IV NS 0.9% 500 ML BAG IV ONE (15:00)
[2019-08-12] MEDS ORDERED: CEFEPIME 1 GM in IV D5W 50 ML IV ONE (15:00)
[2019-08-12] MEDS ORDERED: MUPIROCIN OINT 2% 22 GM TUBE TP ONE (15:00)
[2019-08-12 15:28] LABS: BASOPHILS # (AUTO) 0.1 /CMM (0.0-0.2); EOSINOPHILS % (AUTO) 4.9 % (0.0-6.0); HEMATOCRIT 37 % (39-51); HEMOGLOBIN 12.3 g/dL (13.5-17.5); LYMPHOCYTES # (AUTO) 0.6 /CMM (0.8-4.8); LYMPHOCYTES % (AUTO) 6.6 % (20.0-44.0); MEAN CORPUSCULAR HGB CONC 33 g/dl (31.0-36.0); MEAN CORPUSCULAR VOLUME 93 fL (80-96); MONOCYTES % (AUTO) 10.9 % (2.0-12.0); NEUTROPHILS # (AUTO) 6.8 /CMM (1.8-8.9); NEUTROPHILS % (AUTO) 76.6 % (43.0-81.0); PLATELET COUNT (AUTO) 368 /CMM (150-450); WHITE BLOOD COUNT (AUTO) 8.9 K/uL (4.3-11.0)
[2019-08-12] MEDS ORDERED: D5W IV ONE (15:30)
[2019-08-12] MEDS ORDERED: ACYCLOVIR IV ONE (15:30)
[2019-08-12 15:35] LABS: CALCIUM, SERUM 8.9 mg/dL (8.5-10.1); CARBON DIOXIDE 24 mmol/L (21-32); CHLORIDE 105 mmol/L (98-107); CREATININE 2.2 mg/dL (0.6-1.3); GLUCOSE 101 mg/dL (74-106); POTASSIUM 4.7 mmol/L (3.5-5.1); SODIUM SERUM 136 mmol/L (136-145); UREA NITROGEN, BLOOD 32 mg/dL (7-18)
[2019-08-12 15:41] LABS: ALANINE AMINOTRANSFERASE 38 U/L (12-78); ALBUMIN 2.5 g/dL (3.4-5.0); ALKALINE PHOSPHATASE 108 U/L (46-116); ASPARTATE AMINOTRANSFERASE 39 U/L (15-37); BILIRUBIN,DIRECT 0.2 mg/dL (0.0-0.2); BILIRUBIN,TOTAL 0.4 mg/dL (0.2-1.0); LIPASE 345 U/L (73-393); TOTAL PROTEIN, SERUM 7.1 g/dL (6.4-8.2)
[2019-08-12] MEDS ORDERED: CLON0.1T PO (15:44)
[2019-08-12] MEDS ORDERED: DIVA500T2 PO (15:44)
[2019-08-12] MEDS ORDERED: AMIN887L PO (15:55)
[2019-08-12] MEDS ORDERED: BISA10SU61 RC (15:55)
[2019-08-12] MEDS ORDERED: SENN-175 PO (15:55)
[2019-08-12] MEDS ORDERED: MULT-439 PO (15:55)
[2019-08-12] MEDS ORDERED: ACET-73 PO (15:55)
[2019-08-12] MEDS ORDERED: ACET-2030 PO (15:55)
[2019-08-12] MEDS ORDERED: FLUCONAZOLE IN NS 100 MG in PREMIX 1 EA IV ONE ×2 (17:00)
[2019-08-12] MEDS ORDERED: MAGNESIUM HYDROXIDE 30 ML UDC PO PRN (17:30)
[2019-08-12] MEDS ORDERED: MAG HYDROX/AL HYDROX/SIMETH 30 ML UDC PO PRN (17:30)
[2019-08-12] MEDS ORDERED: CLONIDINE HCL 0.1 MG TABLET PO PRN (17:30)
[2019-08-12] MEDS ORDERED: MORPHINE SULFATE INJ 2 MG/ML DISP.SYRIN IV PRN (17:30)
[2019-08-12] MEDS ORDERED: Z GUARD REMEDY 2 OZ OINT TP PRN (17:30)
[2019-08-12] MEDS ORDERED: ACETAMINOPHEN 325 MG TABLET PO PRN (17:30)
[2019-08-12 18:00] VITALS: BP 142/86
[2019-08-12] MEDS: ATORVASTATIN 40 MG TABLET PO SCH (18:22)
[2019-08-12 20:00] VITALS: BP 143/71
[2019-08-12] MEDS: SENNOSIDES 8.6 MG TABLET PO SCH (22:02)
[2019-08-12] MEDS: ACYCLOVIR IV 1 GM in IV D5W 250 ML IV SCH (23:44)
[2019-08-13] MEDS: LEVOTHYROXINE SODIUM 25 MCG TABLET GT SCH (06:38)
[2019-08-13 07:15] LABS: BASOPHILS # (AUTO) 0.1 /CMM (0.0-0.2); BASOPHILS % (AUTO) 0.9 % (0.0-2.0); EOSINOPHILS % (AUTO) 7.6 % (0.0-6.0); HEMATOCRIT 35 % (39-51); HEMOGLOBIN 11.7 g/dL (13.5-17.5); LYMPHOCYTES # (AUTO) 0.6 /CMM (0.8-4.8); LYMPHOCYTES % (AUTO) 9.4 % (20.0-44.0); MEAN CORPUSCULAR HGB CONC 34 g/dl (31.0-36.0); MEAN CORPUSCULAR VOLUME 91 fL (80-96); MONOCYTES # (AUTO) 0.8 /CMM (0.1-1.30); MONOCYTES % (AUTO) 12.7 % (2.0-12.0); NEUTROPHILS # (AUTO) 4.3 /CMM (1.8-8.9); NEUTROPHILS % (AUTO) 69.4 % (43.0-81.0); PLATELET COUNT (AUTO) 346 /CMM (150-450); RED BLOOD CELL COUNT(AUTO) 3.79 MIL/uL (4.5-6.0); WHITE BLOOD COUNT (AUTO) 6.2 K/uL (4.3-11.0)
[2019-08-13 08:05] LABS: CHOLESTEROL 111 mg/dL (<200); HDL CHOLESTEROL 37 mg/dL (40-60); LDL 63 mg/dL (0-99); THYROID STIMULATING HORMONE 0.359 uIU/mL (0.358-3.74); TRIGLYCERIDES 99 mg/dL (30-150)
[2019-08-13 08:09] LABS: ALANINE AMINOTRANSFERASE 33 U/L (12-78); ALBUMIN 2.3 g/dL (3.4-5.0); ALKALINE PHOSPHATASE 88 U/L (46-116); ASPARTATE AMINOTRANSFERASE 29 U/L (15-37); BILIRUBIN,TOTAL 0.5 mg/dL (0.2-1.0); CALCIUM, SERUM 8.6 mg/dL (8.5-10.1); CARBON DIOXIDE 20 mmol/L (21-32); CHLORIDE 108 mmol/L (98-107); CREATININE 1.9 mg/dL (0.6-1.3); GLUCOSE 93 mg/dL (74-106); MAGNESIUM 1.6 mg/dL (1.8-2.4); PHOSPHORUS 3.4 mg/dL (2.5-4.9); POTASSIUM 4.1 mmol/L (3.5-5.1); SODIUM SERUM 140 mmol/L (136-145); TOTAL PROTEIN, SERUM 6.5 g/dL (6.4-8.2); UREA NITROGEN, BLOOD 26 mg/dL (7-18)
[2019-08-13 08:21] VITALS: BP 136/68
[2019-08-13] MEDS ORDERED: FLUTICASONE/VILANTEROL 1 EACH BLST.W.DEV IH SCH (09:00)
[2019-08-13] MEDS ORDERED: NITROGLYCERIN 0.4 MG/HR PATCH.TD24 TD PRN (09:00)
[2019-08-13] MEDS: ACYCLOVIR IV 1 GM in IV D5W 250 ML IV SCH ×3 (09:24→23:38)
[2019-08-13] MEDS: DIVALPROEX SODIUM 500 MG TABLET.DR PO SCH ×2 (09:29→16:33)
[2019-08-13] MEDS: hydrALAZINE HCL 50 MG TABLET PO SCH ×3 (09:31→16:26)
[2019-08-13] MEDS: FLUCONAZOLE (100 MG) 100 MG TABLET PO SCH (09:31)
[2019-08-13] MEDS: MEMANTINE HCL 5 MG TABLET PO SCH ×2 (09:34→16:32)
[2019-08-13] MEDS: METOPROLOL TARTRATE 25 MG TABLET PO SCH ×2 (09:34→16:26)
[2019-08-13] MEDS ORDERED: SILVER NITRATE APPLICATOR 1 EA BOX TP ONE (10:30)
[2019-08-13] MEDS ORDERED: LIDOCAINE 1%-EPI 1:100,000 20 ML VIAL TP ONE (10:30)
[2019-08-13] MEDS ORDERED: Magnesium 1GM/D5W 100ML PREMIX 100 ML IV SCH (10:41)
[2019-08-13] MEDS: DAKINS QUARTER STRENGTH (0.125%) 480 ML BOTTLE TOP SCH (12:47)
[2019-08-13] MEDS: CEFEPIME 1 GM in IV D5W 50 ML IV SCH (14:36)
[2019-08-13 14:37] LABS: BASOPHILS # (AUTO) 0.1 /CMM (0.0-0.2); BASOPHILS % (AUTO) 0.8 % (0.0-2.0); EOSINOPHILS % (AUTO) 6.2 % (0.0-6.0); HEMATOCRIT 36 % (39-51); HEMOGLOBIN 12.2 g/dL (13.5-17.5); LYMPHOCYTES # (AUTO) 0.5 /CMM (0.8-4.8); LYMPHOCYTES % (AUTO) 6.7 % (20.0-44.0); MEAN CORPUSCULAR HGB CONC 34 g/dl (31.0-36.0); MEAN CORPUSCULAR VOLUME 93 fL (80-96); MONOCYTES # (AUTO) 0.9 /CMM (0.1-1.30); MONOCYTES % (AUTO) 12.2 % (2.0-12.0); NEUTROPHILS # (AUTO) 5.3 /CMM (1.8-8.9); NEUTROPHILS % (AUTO) 74.1 % (43.0-81.0); PLATELET COUNT (AUTO) 373 /CMM (150-450); RED BLOOD CELL COUNT(AUTO) 3.92 MIL/uL (4.5-6.0); WHITE BLOOD COUNT (AUTO) 7.2 K/uL (4.3-11.0)
[2019-08-13] MEDS: HYDROCODONE/APAP 5/325MG 1 EACH TABLET PO PRN (14:37)
[2019-08-13 14:45] LABS: CALCIUM, SERUM 8.6 mg/dL (8.5-10.1); CARBON DIOXIDE 22 mmol/L (21-32); CHLORIDE 103 mmol/L (98-107); CREATININE 2.2 mg/dL (0.6-1.3); GLUCOSE 117 mg/dL (74-106); MAGNESIUM 2.1 mg/dL (1.8-2.4); POTASSIUM 4.2 mmol/L (3.5-5.1); SODIUM SERUM 138 mmol/L (136-145); UREA NITROGEN, BLOOD 25 mg/dL (7-18)
[2019-08-13] MEDS ORDERED: WARFARIN SODIUM 2 MG TABLET PO SCH ×2 (17:00)
[2019-08-13 17:10] VITALS: BP 98/51
[2019-08-13] MEDS: ATORVASTATIN 40 MG TABLET PO SCH (17:16)
[2019-08-13 20:00] VITALS: BP 117/53
[2019-08-13] MEDS: SENNOSIDES 8.6 MG TABLET PO SCH (21:32)
[2019-08-13 22:00] VITALS: BP 117/53
[2019-08-14] VITALS: BP 134/61
[2019-08-14] MEDS: ONDANSETRON HCL/PF 4 MG/2 ML VIAL IVP PRN (00:33)
[2019-08-14 00:45] VITALS: BP 134/61
[2019-08-14] MEDS: LEVOTHYROXINE SODIUM 25 MCG TABLET GT SCH (05:38)
[2019-08-14 08:00] VITALS: BP 135/75
[2019-08-14 08:03] LABS: BASOPHILS # (AUTO) 0.1 /CMM (0.0-0.2); EOSINOPHILS % (AUTO) 6.8 % (0.0-6.0); HEMATOCRIT 35 % (39-51); HEMOGLOBIN 11.7 g/dL (13.5-17.5); LYMPHOCYTES # (AUTO) 0.5 /CMM (0.8-4.8); LYMPHOCYTES % (AUTO) 8.9 % (20.0-44.0); MEAN CORPUSCULAR HGB CONC 34 g/dl (31.0-36.0); MEAN CORPUSCULAR VOLUME 90 fL (80-96); MONOCYTES # (AUTO) 0.8 /CMM (0.1-1.30); MONOCYTES % (AUTO) 14.2 % (2.0-12.0); NEUTROPHILS # (AUTO) 3.8 /CMM (1.8-8.9); NEUTROPHILS % (AUTO) 69.1 % (43.0-81.0); PLATELET COUNT (AUTO) 343 /CMM (150-450); RED BLOOD CELL COUNT(AUTO) 3.82 MIL/uL (4.5-6.0); WHITE BLOOD COUNT (AUTO) 5.5 K/uL (4.3-11.0)
[2019-08-14 08:12] LABS: ALANINE AMINOTRANSFERASE 28 U/L (12-78); ALBUMIN 2.5 g/dL (3.4-5.0); ALKALINE PHOSPHATASE 94 U/L (46-116); BILIRUBIN,TOTAL 0.6 mg/dL (0.2-1.0); CALCIUM, SERUM 8.7 mg/dL (8.5-10.1); CARBON DIOXIDE 23 mmol/L (21-32); CHLORIDE 102 mmol/L (98-107); CREATININE 2.2 mg/dL (0.6-1.3); GLUCOSE 91 mg/dL (74-106); MAGNESIUM 1.9 mg/dL (1.8-2.4); PHOSPHORUS 3.7 mg/dL (2.5-4.9); POTASSIUM 4.4 mmol/L (3.5-5.1); SODIUM SERUM 135 mmol/L (136-145); TOTAL PROTEIN, SERUM 6.9 g/dL (6.4-8.2); UREA NITROGEN, BLOOD 24 mg/dL (7-18)
[2019-08-14 08:16] LABS: CREATINE KINASE, TOTAL 173 U/L (39-308)
[2019-08-14 08:25] LABS: ASPARTATE AMINOTRANSFERASE 38 U/L (15-37)
[2019-08-14] MEDS: ACYCLOVIR IV 1 GM in IV D5W 250 ML IV SCH ×3 (08:26→23:22)
[2019-08-14] MEDS: FLUCONAZOLE (100 MG) 100 MG TABLET PO SCH (08:26)
[2019-08-14] MEDS: METOPROLOL TARTRATE 25 MG TABLET PO SCH ×2 (08:27→17:38)
[2019-08-14] MEDS: MEMANTINE HCL 5 MG TABLET PO SCH ×2 (08:27→17:35)
[2019-08-14] MEDS: DIVALPROEX SODIUM 500 MG TABLET.DR PO SCH ×2 (08:28→17:39)
[2019-08-14] MEDS: hydrALAZINE HCL 50 MG TABLET PO SCH ×3 (08:28→17:52)
[2019-08-14] MEDS: DAKINS QUARTER STRENGTH (0.125%) 480 ML BOTTLE TOP SCH (08:43)
[2019-08-14 09:34] LABS: APPEARANCE,URINE CLEAR (CLEAR); BILIRUBIN,URINE NEGATIVE (NEGATIVE); BLOOD, URINE NEGATIVE Ery/uL (NEGATIVE); COLOR,URINE YELLOW (YELLOW); KETONES,URINE NEGATIVE (NEGATIVE); LEUKOCYTE ESTERASE ,URINE NEGATIVE (NEGATIVE); NITRITE, URINE NEGATIVE (NEGATIVE); PROTEIN,URINE 100 mg/dl (NEGATIVE); UGLUCOSE NEGATIVE (NEGATIVE); UROBILINOGEN,URINE 0.2 EU/dL (0.2)
[2019-08-14 10:35] LABS: BACTERIA,URINE Rare /HPF (None Seen); RBC,URINE 0-2 /HPF (0-2); SQUAMOUS EPITHELIAL CELL,UR Rare /HPF (None Seen); WBC,URINE 0-2 /HPF (0-3)
[2019-08-14 10:40] LABS: CREATININE, URINE 44.9 MG/DL (30.0-125.0); URINE TOTAL PROTEIN 218.4 mg/dL (0-11.9)
[2019-08-14 14:49] LABS: EOSINOPHIL,URINE None Seen
[2019-08-14] MEDS: CEFEPIME 1 GM in IV D5W 50 ML IV SCH (15:51)
[2019-08-14] MEDS: HYDROCODONE/APAP 5/325MG 1 EACH TABLET PO PRN (15:52)
[2019-08-14 16:00] VITALS: BP 147/60
[2019-08-14] MEDS ORDERED: WARFARIN SODIUM 2.5 MG TABLET PO SCH (17:00)
[2019-08-14] MEDS: ATORVASTATIN 40 MG TABLET PO SCH (17:34)
[2019-08-14 20:00] VITALS: BP 136/61
[2019-08-14] MEDS ORDERED: VANCOMYCIN 1 GM in IV D5W 250ml IV ONE (20:00)
[2019-08-14] MEDS ORDERED: VANCOMYCIN 1 GM VIAL ONE (20:26)
[2019-08-14] MEDS: SENNOSIDES 8.6 MG TABLET PO SCH (21:41)
[2019-08-15] MEDS: ONDANSETRON HCL/PF 4 MG/2 ML VIAL IVP PRN (01:33)
[2019-08-15] MEDS: LEVOTHYROXINE SODIUM 25 MCG TABLET GT SCH (05:09)
[2019-08-15] MEDS ORDERED: FEE PK DOSING 1 MIN EA MC ONE ×2 (07:27→07:38)
[2019-08-15 07:31] LABS: BASOPHILS # (AUTO) 0.1 /CMM (0.0-0.2); EOSINOPHILS % (AUTO) 4.7 % (0.0-6.0); HEMATOCRIT 35 % (39-51); HEMOGLOBIN 11.8 g/dL (13.5-17.5); LYMPHOCYTES # (AUTO) 0.4 /CMM (0.8-4.8); MEAN CORPUSCULAR HGB CONC 34 g/dl (31.0-36.0); MEAN CORPUSCULAR VOLUME 92 fL (80-96); MONOCYTES # (AUTO) 0.5 /CMM (0.1-1.30); MONOCYTES % (AUTO) 9.3 % (2.0-12.0); NEUTROPHILS # (AUTO) 4.6 /CMM (1.8-8.9); PLATELET COUNT (AUTO) 334 /CMM (150-450); RED BLOOD CELL COUNT(AUTO) 3.82 MIL/uL (4.5-6.0); WHITE BLOOD COUNT (AUTO) 5.8 K/uL (4.3-11.0)
[2019-08-15] MEDS: ACYCLOVIR IV 1 GM in IV D5W 250 ML IV SCH ×3 (07:50→23:46)
[2019-08-15 07:53] LABS: CALCIUM, SERUM 8.8 mg/dL (8.5-10.1); CARBON DIOXIDE 23 mmol/L (21-32); CHLORIDE 102 mmol/L (98-107); CREATININE 2.3 mg/dL (0.6-1.3); GLUCOSE 94 mg/dL (74-106); POTASSIUM 4.7 mmol/L (3.5-5.1); SODIUM SERUM 134 mmol/L (136-145); UREA NITROGEN, BLOOD 21 mg/dL (7-18)
[2019-08-15 08:00] VITALS: BP 148/64
[2019-08-15] MEDS: DIVALPROEX SODIUM 500 MG TABLET.DR PO SCH ×2 (08:47→17:43)
[2019-08-15] MEDS: MEMANTINE HCL 5 MG TABLET PO SCH ×2 (08:47→17:43)
[2019-08-15] MEDS: hydrALAZINE HCL 50 MG TABLET PO SCH ×3 (08:49→17:43)
[2019-08-15] MEDS: METOPROLOL TARTRATE 25 MG TABLET PO SCH ×2 (08:49→17:43)
[2019-08-15] MEDS: DAKINS QUARTER STRENGTH (0.125%) 480 ML BOTTLE TOP SCH (08:54)
[2019-08-15] MEDS: CEFEPIME 1 GM in IV D5W 50 ML IV SCH (15:52)
[2019-08-15 16:00] VITALS: BP 140/59
[2019-08-15] MEDS: ATORVASTATIN 40 MG TABLET PO SCH (17:43)
[2019-08-15] MEDS: WARFARIN SODIUM 2.5 MG TABLET PO SCH (18:19)
[2019-08-15 20:00] VITALS: BP 105/69
[2019-08-15] MEDS ORDERED: VANCOMYCIN 0.75 GM in IV D5W 250 ML IV SCH (20:00)
[2019-08-15] MEDS: SENNOSIDES 8.6 MG TABLET PO SCH (22:06)
[2019-08-16 06:07] LABS: CARBON DIOXIDE 22 mmol/L (21-32); CHLORIDE 100 mmol/L (98-107); CREATININE 2.5 mg/dL (0.6-1.3); GLUCOSE 98 mg/dL (74-106); POTASSIUM 4.7 mmol/L (3.5-5.1); SODIUM SERUM 133 mmol/L (136-145); UREA NITROGEN, BLOOD 22 mg/dL (7-18)
[2019-08-16] MEDS: LEVOTHYROXINE SODIUM 25 MCG TABLET GT SCH (06:09)
[2019-08-16 06:10] LABS: BASOPHILS % (AUTO) 0.8 % (0.0-2.0); EOSINOPHILS % (AUTO) 5.7 % (0.0-6.0); HEMATOCRIT 36 % (39-51); HEMOGLOBIN 12.3 g/dL (13.5-17.5); LYMPHOCYTES # (AUTO) 0.5 /CMM (0.8-4.8); LYMPHOCYTES % (AUTO) 9.6 % (20.0-44.0); MEAN CORPUSCULAR HGB CONC 34 g/dl (31.0-36.0); MEAN CORPUSCULAR VOLUME 92 fL (80-96); MONOCYTES # (AUTO) 0.6 /CMM (0.1-1.30); MONOCYTES % (AUTO) 11.6 % (2.0-12.0); NEUTROPHILS # (AUTO) 3.6 /CMM (1.8-8.9); NEUTROPHILS % (AUTO) 72.3 % (43.0-81.0); PLATELET COUNT (AUTO) 357 /CMM (150-450); RED BLOOD CELL COUNT(AUTO) 3.95 MIL/uL (4.5-6.0)
[2019-08-16 08:00] VITALS: BP 130/73
[2019-08-16] MEDS: ACYCLOVIR IV 1 GM in IV D5W 250 ML IV SCH (08:30)
[2019-08-16] MEDS: METOPROLOL TARTRATE 25 MG TABLET PO SCH ×2 (08:31→17:02)
[2019-08-16] MEDS: DIVALPROEX SODIUM 500 MG TABLET.DR PO SCH ×2 (08:31→17:01)
[2019-08-16] MEDS: MEMANTINE HCL 5 MG TABLET PO SCH ×2 (08:31→17:01)
[2019-08-16] MEDS: hydrALAZINE HCL 50 MG TABLET PO SCH ×3 (08:32→17:01)
[2019-08-16] MEDS: DAKINS QUARTER STRENGTH (0.125%) 480 ML BOTTLE TOP SCH (08:33)
[2019-08-16] MEDS ORDERED: CEFAZOLIN 1 GM in IV NS 0.9% 50 ML IV SCH (09:00)
[2019-08-16] MEDS ORDERED: CEPH-570 PO (11:30)
[2019-08-16 12:06] LABS: *SPE A/G RATIO 0.9 (0.7-1.7); *SPE ALBUMIN 2.9 g/dL (2.9-4.4); *SPE ALPHA-1-GLOBULIN 0.3 g/dL (0.0-0.4); *SPE ALPHA-2-GLOBULIN 0.5 g/dL (0.4-1.0); *SPE BETA GLOBULIN 0.9 g/dL (0.7-1.3); *SPE GLOBULIN, TOTAL 3.2 g/dL (2.2-3.9); *SPE M-SPIKE Not Observed g/dL (Not Observed); *SPEGAMMA GLOBULIN 1.5 g/dL (0.4-1.8)
[2019-08-16 16:00] VITALS: BP 135/71
[2019-08-16] MEDS: WARFARIN SODIUM 2.5 MG TABLET PO SCH (17:00)
[2019-08-16] MEDS: ATORVASTATIN 40 MG TABLET PO SCH (17:01)
[2019-08-16 17:02] VITALS: BP 135/71
[2019-08-17 13:06] LABS: PTH, INTACT 118 pg/mL (15-65)
== END 2019-08-16 17:30 | DRG 602 ==
LOC: ER 13:13 → MEDSG2 17:03
PROVIDERS: ADMIT Nurse Practitioner Acute Care; ATTEND Internal Medicine
PROC: 0JB00ZX Excision of Scalp Subcutaneous Tissue and Fascia, Open Approach, Diagnostic (ICD-10-PCS; principal; 2019-08-13)
DX: L03.811 Cellulitis of head [any part, except face] (principal); I21.A1 Myocardial infarction type 2; N17.0 Acute kidney failure with tubular necrosis; I13.0 Hypertensive heart and chronic kidney disease with heart failure and stage 1 through stage 4 chronic kidney disease, or unspecified chronic kidney disease; N18.4 Chronic kidney disease, stage 4 (severe); E44.0 Moderate protein-calorie malnutrition; D68.9 Coagulation defect, unspecified; F03.90 Unspecified dementia, unspecified severity, without behavioral disturbance, psychotic disturbance, mood disturbance, and anxiety; Z86.73 Personal history of transient ischemic attack (TIA), and cerebral infarction without residual deficits; I50.9 Heart failure, unspecified; E03.9 Hypothyroidism, unspecified; F29 Unspecified psychosis not due to a substance or known physiological condition; M62.81 Muscle weakness (generalized); B95.61 Methicillin susceptible Staphylococcus aureus infection as the cause of diseases classified elsewhere; D63.8 Anemia in other chronic diseases classified elsewhere; E88.09 Other disorders of plasma-protein metabolism, not elsewhere classified; Z68.25 Body mass index [BMI] 25.0-25.9, adult; Z90.5 Acquired absence of kidney; Z95.2 Presence of prosthetic heart valve; Z86.19 Personal history of other infectious and parasitic diseases; I48.91 Unspecified atrial fibrillation
CPT/HCPCS: 36415; 71045-TC; 80048-TC; 80053-TC; 80061-TC; 80076-TC; 81000-TC; 82550-TC; 82570-TC; 83690-TC; 83735-TC; 83970; 84100-TC; 84155; 84155-TC; 84165; 84300-TC; 84443-TC; 84484-TC; 85025-TC; 85610-TC; 85730-TC; 86140-TC; 87040-TC; 87070-TC; 87081-TC; 88305-TC; 88312-TC; A4216; A6253; G0378; J0133; J0690; J0692; J1450; J2270; J2405; J3370; J3475; J3490; J7040; J7050; J7060

== ENCOUNTER 2020-10-06 11:06 | Inpatient (IN) | payer MEDICARE, OTHER ==
[~2020-10-06] VITALS: Ht 165.1 cm; Wt 47.2 kg
[~2020-10-06 11:06] MED LIST changes: +ACET-2030 PO; +ACET-73 PO; +AMIN887L PO; +BISA10SU61 RC; -CARV3.12 PO; +CEPH-570 PO; +CLON0.1T PO; +DIVA500T2 PO; -FURO-144 PO; -LISI10TA5 PO; +MULT-439 PO; -QUET25TA PO; +SENN-175 PO; -WARF-58 PO
--- NOTE | 2020-10-06 11:15 | NUR ---
DR KANG AT BEDSIDE
--- NOTE | 2020-10-06 11:15 | NUR ---
[facility], SYNCOPE AND HYPOTENSION REPORT PER PARAMEDICS; 87% ON RA, 70/30 ON THE FIELD, BS - 101, TO ER BED 8, HOOKED TO MONITOR, VSS, CHANGEDTO HOSP GOWN, WARM BLANKET PROVIDED, PATIENT AAO x 2. BREATHING EVEN AND UNLABORED, NAD NOTED. AWAITING MD ADAMS
[2020-10-06 11:33] LABS: BASOPHILS % (AUTO) 0.3 % (0.0-2.0); EOSINOPHILS % (AUTO) 0.6 % (0.0-6.0); HEMATOCRIT 39 % (39-51); HEMOGLOBIN 12.5 g/dL (13.5-17.5); LYMPHOCYTES # (AUTO) 0.4 /CMM (0.8-4.8); LYMPHOCYTES % (AUTO) 4.9 % (20.0-44.0); MEAN CORPUSCULAR HGB CONC 32 g/dl (31.0-36.0); MEAN CORPUSCULAR VOLUME 100 fL (80-96); MONOCYTES # (AUTO) 0.5 /CMM (0.1-1.30); MONOCYTES % (AUTO) 6.8 % (2.0-12.0); NEUTROPHILS % (AUTO) 87.4 % (43.0-81.0); PLATELET COUNT (AUTO) 182 /CMM (150-450); RED BLOOD CELL COUNT(AUTO) 3.89 MIL/uL (4.5-6.0); WHITE BLOOD COUNT (AUTO) 8.1 K/uL (4.3-11.0)
[2020-10-06 11:42] LABS: CALCIUM, SERUM 9.4 mg/dL (8.5-10.1); CARBON DIOXIDE 24 mmol/L (21-32); CHLORIDE 106 mmol/L (98-107); CREATININE 5.3 mg/dL (0.6-1.3); GLUCOSE 93 mg/dL (74-106); POTASSIUM 5.1 mmol/L (3.5-5.1); SODIUM SERUM 141 mmol/L (136-145); UREA NITROGEN, BLOOD 56 mg/dL (7-18)
[2020-10-06 11:48] LABS: ALANINE AMINOTRANSFERASE 36 U/L (12-78); ALBUMIN 2.4 g/dL (3.4-5.0); ALKALINE PHOSPHATASE 98 U/L (46-116); ASPARTATE AMINOTRANSFERASE 64 U/L (15-37); BILIRUBIN,DIRECT 0.8 mg/dL (0.0-0.2); BILIRUBIN,TOTAL 1.6 mg/dL (0.2-1.0); TOTAL PROTEIN, SERUM 6.8 g/dL (6.4-8.2)
--- NOTE | 2020-10-06 13:02 | NUR ---
RAPID COVID SWAB DONE AND SENT TO LAB
--- NOTE | 2020-10-06 13:28 | NUR ---
RECEIVED RESULT FROM LAB: RAPID COVID NEGATIVE
--- NOTE | 2020-10-06 13:38 | NUR ---
ADMITTED FOR SYNCOPE AND ELEVATED INR
[2020-10-06] MEDS ORDERED: NA P133E RC (13:46)
[2020-10-06] MEDS ORDERED: MAGN400O6 PO (13:46)
[2020-10-06] MEDS ORDERED: NUT.237L67 PO (13:46)
--- NOTE | 2020-10-06 14:12 | NUR ---
MADE HOUSE SUP AWARE OF COVID RESULT, AWAITING FOR TELE BED
[2020-10-06] MEDS ORDERED: ACETAMINOPHEN 325 MG TABLET PO PRN (15:30)
[2020-10-06] MEDS ORDERED: ZOLPIDEM TARTRATE 5 MG TABLET PO PRN (15:30)
[2020-10-06] MEDS ORDERED: ONDANSETRON HCL/PF 4 MG/2 ML VIAL IVP PRN (15:30)
[2020-10-06] MEDS ORDERED: BISACODYL SUPP (10 MG) 10 MG/SUPP.RECT SUPP.RECT RC PRN (15:30)
[2020-10-06] MEDS ORDERED: PHYTONADIONE 5 MG TABLET PO ONE (15:30)
[2020-10-06] MEDS ORDERED: NA PHOS,M-B/NA PHOS,DI-BA 1 EA ENEMA RC PRN (15:30)
[2020-10-06] MEDS ORDERED: HYDROCODONE/APAP 5/325MG TABLET PO PRN (15:30)
[2020-10-06] MEDS ORDERED: Z GUARD REMEDY 2 OZ OINT TP PRN (15:30)
[2020-10-06] MEDS ORDERED: MAGNESIUM HYDROXIDE 30 ML UDC PO PRN ×2 (15:30)
[2020-10-06] MEDS ORDERED: MAG HYDROX/AL HYDROX/SIMETH 30 ML UDC PO PRN (15:30)
--- NOTE | 2020-10-06 15:42 | NUR ---
REPORT GIVEN TO AIYANA SCHAFFER OF TELE UNIT
--- NOTE | 2020-10-06 15:45 | NUR ---
RN NOTE RECEIVED PT INTO BED 114-2. PT IS A/O X3 AND CAMEROONIAN SPEAKING. NO COMPLAINT OF PAIN. ON 3L NC WITH NOT SOB/RESPIRATORY DISTRESS PRESENT. CONTROLLED A FIB RECORDED VIA EXTERNAL MONITOR. CURRENTLY ON BEDREST. SKIN BREAKS NOTED AND PUT INTO CHART. SAFETY MEASURES IN PLACE. SIDE RAILS RAISED. BED LOWERED. CALL LIGHT WITHIN REACH. WILL CONTINUE TO MONITOR.
[2020-10-06] MEDS ORDERED: PHYTONADIONE INJ 5 MG in IV D5W 50 ML IV ONE (16:00)
[2020-10-06] MEDS: hydrALAZINE HCL 50 MG TABLET PO SCH (16:50)
[2020-10-06] MEDS: METOPROLOL TARTRATE 25 MG TABLET PO SCH (16:51)
[2020-10-06] MEDS: DIVALPROEX SODIUM 125 MG CAP.SPRINK PO SCH (17:23)
[2020-10-06] MEDS: ATORVASTATIN 40 MG TABLET PO SCH (17:23)
[2020-10-06] MEDS: MEMANTINE HCL 5 MG TABLET PO SCH (17:23)
[2020-10-06] MEDS: NEPRO VAN 237 ML CAN PO SCH (17:24)
--- NOTE | 2020-10-06 20:00 | NUR ---
RN CLOSING NOTE PT IS BED A/O X3 AND SLOVENIAN SPEAKING. NO COMPLAINT OF PAIN. ON 3L O2 VIA NS SATING 97%.NO SOB NO DISTRESS NOTED. CONTROLLED A FIB 73 . CURRENTLY ON BEDREST. DUE MEDS GIVEN ORDERED . SAFETY MEASURES IN PLACE.V/S STABLE AFEBRILE , SIDE RAILS RAISED. BED LOWERED. CALL LIGHT WITHIN REACH. ECHO RESULT 125-20% ,TROPONIN 0.101 , TRENDING DOWN RELAYED TO JEFFERSON GRIMES WITH NNO ORDER AT THIS TIME.WILL CONTINUE TO MONITOR PTS. Addendum: 10/07/20 at 0705 by ISIDRO HORN RN THIS IS OPENING NOTES NOT A CLOSING NOTES
[2020-10-06 20:06] VITALS: BP 101/61
--- NOTE | 2020-10-06 20:14 | NUR ---
PRELIMINARY REPORT OF ECHOCARDIOGRAM SHOWED EF 15-20%~. INITIAL RESULT WAS ADVISED TO KARIME FELIX.
--- NOTE | 2020-10-06 20:19 | NUR ---
RN CLOSING NOTE PT IS A/O X3 AND MAORI SPEAKING. NO COMPLAINT OF PAIN. ON 3L NC WITH NOT SOB/RESPIRATORY DISTRESS PRESENT. CONTROLLED A FIB RECORDED VIA EXTERNAL MONITOR. CURRENTLY ON BEDREST. SKIN BREAKS NOTED AND PUT INTO CHART. SAFETY MEASURES IN PLACE. SIDE RAILS RAISED. BED LOWERED. CALL LIGHT WITHIN REACH. ROUTINE MEDS GIVEN. REPORT GIVEN TO NIGHT NURSE.
[2020-10-06] MEDS: SENNOSIDES 8.6 MG TABLET PO SCH (22:53)
[2020-10-07] VITALS: BP 113/72
[2020-10-07 04:00] VITALS: BP 135/72
[2020-10-07] MEDS: LEVOTHYROXINE SODIUM 25 MCG TABLET GT SCH (06:23)
[2020-10-07 06:57] LABS: BASOPHILS % (AUTO) 0.3 % (0.0-2.0); EOSINOPHILS % (AUTO) 1.2 % (0.0-6.0); HEMATOCRIT 34 % (39-51); HEMOGLOBIN 10.9 g/dL (13.5-17.5); LYMPHOCYTES # (AUTO) 0.3 /CMM (0.8-4.8); LYMPHOCYTES % (AUTO) 3.8 % (20.0-44.0); MEAN CORPUSCULAR HGB CONC 33 g/dl (31.0-36.0); MEAN CORPUSCULAR VOLUME 99 fL (80-96); MONOCYTES # (AUTO) 0.5 /CMM (0.1-1.30); MONOCYTES % (AUTO) 6.2 % (2.0-12.0); NEUTROPHILS # (AUTO) 6.8 /CMM (1.8-8.9); NEUTROPHILS % (AUTO) 88.5 % (43.0-81.0); PLATELET COUNT (AUTO) 155 /CMM (150-450); RED BLOOD CELL COUNT(AUTO) 3.39 MIL/uL (4.5-6.0); WHITE BLOOD COUNT (AUTO) 7.7 K/uL (4.3-11.0)
[2020-10-07 06:59] LABS: CARBON DIOXIDE 21 mmol/L (21-32); CHLORIDE 107 mmol/L (98-107); CREATININE 5.1 mg/dL (0.6-1.3); GLUCOSE 76 mg/dL (74-106); MAGNESIUM 2.3 mg/dL (1.8-2.4); POTASSIUM 4.3 mmol/L (3.5-5.1); SODIUM SERUM 143 mmol/L (136-145); UREA NITROGEN, BLOOD 60 mg/dL (7-18)
--- NOTE | 2020-10-07 07:05 | NUR ---
TELE CLOSING RN NOTES PTS IN BED COMFORTABLE ,V/S STABLE AFEBRILE , NO BLEEDING NOTED . WILL ENDORSE TO RN DAYSHIFT FOR CONTINUITY OF CARE.
[2020-10-07 07:14] LABS: CHOLESTEROL 105 mg/dL (<200); HDL CHOLESTEROL 82 mg/dL (40-60); LDL 28 mg/dL (0-99); TRIGLYCERIDES 56 mg/dL (30-150)
--- NOTE | 2020-10-07 07:30 | NUR ---
OIL HOUSE ATTENDANT AM NOTE PT IN BED A/O X2 WITH PERIODS OF CONFUSION, MONGOLIAN SPEAKING. DENIES PAIN, ON 3L O2 VIA NC SATING 100%.NO SOB NO DISTRESS NOTED. CONTROLLED A FIB 82 ON MONITOR. RT AC G20 IV ACCESS FLUSHES WELL. SITE CLEAR. ON CARDIAC DIET. SEE NURSING FLOWSHEET FOR SKIN ISSUES. SAFETY MEASURES IN PLACE. SIDE RAILS RAISED. BED LOWERED. CALL LIGHT WITHIN REACH. WILL CONTINUE TO MONITOR PTS.
[2020-10-07 08:00] VITALS: BP 138/68
[2020-10-07] MEDS: FUROSEMIDE 100 MG/10 ML VIAL IV SCH ×3 (08:58→16:53)
[2020-10-07] MEDS: MULTIVIT W/MINERALS 1 TAB TABLET PO SCH (08:58)
[2020-10-07] MEDS: DIVALPROEX SODIUM 125 MG CAP.SPRINK PO SCH ×2 (08:58→16:53)
[2020-10-07] MEDS: MEMANTINE HCL 5 MG TABLET PO SCH ×2 (08:59→16:54)
[2020-10-07] MEDS: METOPROLOL TARTRATE 25 MG TABLET PO SCH ×2 (08:59→16:54)
[2020-10-07] MEDS: hydrALAZINE HCL 50 MG TABLET PO SCH ×3 (09:00→16:55)
[2020-10-07] MEDS: NEPRO VAN 237 ML CAN PO SCH ×2 (09:14→16:56)
--- NOTE | 2020-10-07 09:30 | NUR ---
RN NOTES DUE MEDS GIVEN
[2020-10-07 12:00] VITALS: BP 106/57
[2020-10-07 16:00] VITALS: BP 116/62
[2020-10-07] MEDS: WARFARIN SODIUM 5 MG TABLET PO SCH (16:59)
[2020-10-07] MEDS: ATORVASTATIN 40 MG TABLET PO SCH (17:00)
--- NOTE | 2020-10-07 18:27 | NUR ---
MS RN CLOSING NOTE PT IN BED A/O X2 WITH PERIODS OF CONFUSION, PALESTINIAN SPEAKING. DENIES PAIN, ON 3L O2 VIA NC SATING 100%.NO SOB NO DISTRESS NOTED. DENIES PAIN OR DISCOMFORT. RT AC G20 IV ACCESS FLUSHES WELL. SITE CLEAR. ON CARDIAC DIET. ASSIST IN FEEDING. SAFETY MEASURES IN PLACE. SIDE RAILS UP X 2. BED LOW/LOCKED. CALL LIGHT WITHIN REACH. ALL NEEDS MET.NO OTHER SIGNIFICANT CHANGE IN CONDITION. WILL ENDORSE TO NEXT SHIFT FOR SAM.
--- NOTE | 2020-10-07 19:54 | NUR ---
RN NOTES: RECEIVED AWAKE ON BED.A/0X4, BARBADIAN SPEAKING, WITH O2 AT 3L/MIN VIA NC, NOW ON MED-SURG, AMBULATORY, HIGH RISK FOR FALL, RAC G#20, CONTINENT BOTH BOWEL AND BLADDER, ORIENTED TO UNIT AND STAFF, INSTRUCT TO CALL IF HE NEEDS ASSISTANCE, KEPT CALL LIGHT WITHIN EASY REACH. FALL, SAFETY AND ASPIRATION PRECAUTION OBSERVED.
[2020-10-07 20:00] VITALS: BP 112/64
[2020-10-07] MEDS: SENNOSIDES 8.6 MG TABLET PO SCH (21:59)
--- NOTE | 2020-10-07 22:10 | NUR ---
RN NOTES: EXPLAINED TO HIM HE NEEDS TO TAKE HIS MEDICATION,HE AGREE, HE TOOK IT APPLE SAUCE, HE LET THE RN PUT INSIDE HIS MOUTH, THEN HE JUST LET IT STAY THERE, HE TRIED TO SWALLOW A LITTLE, THEN AFTER FEW MINUTES HE SPIT IT OUT. -OFFERED WATER, HE SWALLOW A LITTLE AND SPIT IT OUT. -REFUSED TO GO BACK IN HIS BED, HE WAS WATCHING tv WHILE HE IS SITTING ON THE CHAIR AT THE BED SIDE. -KEPT ON CLOSE VISUAL CHECK.
--- NOTE | 2020-10-07 23:37 | NUR ---
RN NOTES: LOOKS SLEEPY ALREADY, RN AND NETWORK DEVELOPER ENCOURAGE HIM TO TRANSFER TO BED,ASSISTED BACK TO BED , PLACED IN SEMI FOWLERS POSITION,KEEP O2 AT 3-2L/MIN VIA NC, FALL PRECAUTION OBSERVED, KEPT ON CLOSE VISUAL CHECK.
--- NOTE | 2020-10-08 03:05 | NUR ---
RN NOTES: SLEEP WELL, FALL AND SAFETY PRECAUTION OBSERVED, CALL LIGHT KEPT WITHIN EASY REACH, ON CLOSE VISUAL CHECK AT SHORT INTERVAL FOR MONITORING
[2020-10-08 04:00] VITALS: BP 112/58
[2020-10-08] MEDS: LEVOTHYROXINE SODIUM 25 MCG TABLET GT SCH (06:51)
[2020-10-08 07:04] LABS: BASOPHILS % (AUTO) 0.8 % (0.0-2.0); EOSINOPHILS % (AUTO) 3.4 % (0.0-6.0); HEMATOCRIT 35 % (39-51); HEMOGLOBIN 11.3 g/dL (13.5-17.5); LYMPHOCYTES # (AUTO) 0.4 /CMM (0.8-4.8); LYMPHOCYTES % (AUTO) 7.4 % (20.0-44.0); MEAN CORPUSCULAR HGB CONC 32 g/dl (31.0-36.0); MEAN CORPUSCULAR VOLUME 99 fL (80-96); MONOCYTES # (AUTO) 0.3 /CMM (0.1-1.30); MONOCYTES % (AUTO) 5.7 % (2.0-12.0); NEUTROPHILS # (AUTO) 4.6 /CMM (1.8-8.9); NEUTROPHILS % (AUTO) 82.7 % (43.0-81.0); PLATELET COUNT (AUTO) 159 /CMM (150-450); RED BLOOD CELL COUNT(AUTO) 3.56 MIL/uL (4.5-6.0); WHITE BLOOD COUNT (AUTO) 5.6 K/uL (4.3-11.0)
[2020-10-08 07:14] LABS: ALANINE AMINOTRANSFERASE 33 U/L (12-78); ALBUMIN 2.2 g/dL (3.4-5.0); ALKALINE PHOSPHATASE 91 U/L (46-116); ASPARTATE AMINOTRANSFERASE 49 U/L (15-37); BILIRUBIN,TOTAL 1.5 mg/dL (0.2-1.0); CALCIUM, SERUM 8.9 mg/dL (8.5-10.1); CARBON DIOXIDE 25 mmol/L (21-32); CHLORIDE 106 mmol/L (98-107); CREATININE 5.1 mg/dL (0.6-1.3); GLUCOSE 77 mg/dL (74-106); MAGNESIUM 2.1 mg/dL (1.8-2.4); PHOSPHORUS 4.4 mg/dL (2.5-4.9); POTASSIUM 3.9 mmol/L (3.5-5.1); SODIUM SERUM 143 mmol/L (136-145); TOTAL PROTEIN, SERUM 6.4 g/dL (6.4-8.2); UREA NITROGEN, BLOOD 58 mg/dL (7-18)
[2020-10-08 07:15] LABS: CREATINE KINASE, TOTAL 156 U/L (39-308)
--- NOTE | 2020-10-08 07:44 | NUR ---
RN NOTES: SLEEP WELL IN THE NIGHT, NO PAIN OR DISCOMFORT, NO SOB NOTED, COOPERATIVE, HE WAS ABLE TO TAKE HIS MEDICATION WITH PUDDING WITHOUT SPITTING IT OUT.ENDORSED FOR CONTINUITY OF CARE.
--- NOTE | 2020-10-08 07:52 | NUR ---
MS RN NOTE PATIENT IN BED ,RESTING COMFORTABLY AT THIS TIME, ,RT AC HL INTACT AND FLUSHED WELL , NO SOB NOTED AT THIS TIME , BED IN LOWEST AND LOCKED POSITION , CALL LIGHT WITHIN REACH WILL CONT TO MONITOR CLOSELY
[2020-10-08 08:00] VITALS: BP 103/67
[2020-10-08] MEDS: DIVALPROEX SODIUM 125 MG CAP.SPRINK PO SCH ×2 (08:28→16:21)
[2020-10-08] MEDS: METOPROLOL TARTRATE 25 MG TABLET PO SCH ×2 (08:29→16:22)
[2020-10-08] MEDS: MULTIVIT W/MINERALS 1 TAB TABLET PO SCH (08:29)
[2020-10-08] MEDS: MEMANTINE HCL 5 MG TABLET PO SCH ×2 (08:29→16:22)
[2020-10-08] MEDS: hydrALAZINE HCL 50 MG TABLET PO SCH ×3 (08:30→16:21)
[2020-10-08] MEDS: NEPRO VAN 237 ML CAN PO SCH ×2 (08:31→16:22)
[2020-10-08] MEDS ORDERED: BUMETANIDE INJ 16 MG in IV NS 0.9% 16 ML IV ONE (10:00)
--- NOTE | 2020-10-08 11:04 | NUR ---
ms rn note seen by dr Nitesh Campos ok to start heparin drip and Coumadin 5 mg po also ok per protocol ok to give bolus 4400 units of heparin also aware that bun 58 creatine 5.1 chest x ray bilateral infiltrates aware that start on Bumex drip. verified with dr Nitesh Campos to use form for not acute coronary syndrome and per protocol start at 55 kg but patient is 53 kg ok to follow algorithm for 55 kg for heparin drip
--- NOTE | 2020-10-08 11:40 | NUR ---
ms rn note seen by dr ramon saw repairer notified that both legs with edema and lt arm with edema ,kept elevated on pillow and no urine output at this time on Bumex drip for now ok to cont at this time
[2020-10-08] MEDS ORDERED: HEPARIN SODIUM, PORCINE 5000 UNITS/1 ML VIAL IV ONE (11:45)
[2020-10-08 12:00] VITALS: BP 91/46
[2020-10-08] MEDS: HEPARIN INFUSION/D5W 500 ML IV PRN (12:17)
--- NOTE | 2020-10-08 12:28 | NUR ---
ms rn note per hospital protocol ok to start at heparin 18 units \de=4838xrla\kg ,ptt after 6 hour at 1830
--- NOTE | 2020-10-08 13:55 | NUR ---
ms rn note up on chair able to urinate 300 ml of urine ,cont on Bumex and heparin drip, will cont to monitor closely
--- NOTE | 2020-10-08 15:21 | NUR ---
MS RN NOTE PICC LINE AT BEDSIDE MIDLINE INSERTED ON LT UPPER ARM , ALSO DR TIMBO REA NOTIFIED THAT LOWER ABDOMEN WITH BULGING AREA NOTED ,NO NEW ORDER GIVEN AT THIS TIME
[2020-10-08 16:00] VITALS: BP 127/65
[2020-10-08] MEDS: WARFARIN SODIUM 5 MG TABLET PO SCH (16:23)
[2020-10-08] MEDS: ATORVASTATIN 40 MG TABLET PO SCH (17:16)
--- NOTE | 2020-10-08 19:10 | NUR ---
RN OPENING NOTE RECEIVED PATIENT IN BED RESTING ALERT ORIENTED X3 VERBALLY RESPONSIVE ON 3L OXYGEN VIA NASAL CANNULA, O2:96% IV SITE IS ON LEFT UPPER ARM MIDLINE AND RIGHT FOREARM INTACT PATENT ON HEPARIN DRIP 1000 UNIT/KG CONTINENT TO BOWEL/BLADDER SAFETY MEASURE IMPLEMENT,CALL LIGHT WITHIN REACH,CONTINUE TO MONITOR.
--- NOTE | 2020-10-08 19:14 | NUR ---
ms rn note cont on heparin drip at 1000 units ptt drown at 1830 will await for result and endorsed rn next shift
[2020-10-08 20:00] VITALS: BP 129/54
--- NOTE | 2020-10-08 21:00 | NUR ---
RN NOTE RECEIVED CRITICAL LAB RESULTS APTT [address] EXECUTIVE MARKETING ASSISTANT DR JEFFERSON TA WITH NEW ORDER STAT INR NOTED AND CARRIED OUT,CONTINUE TO MONITOR
--- NOTE | 2020-10-08 21:01 | NUR ---
RN NOTE APTT IS 170 HOLD HEPARIN CONTINUE TO MONITOR
--- NOTE | 2020-10-08 22:00 | NUR ---
RN NOTE PATIENT PT IS 15.6 AND INR IS 1.53 CALLED PARKING LINE PAINTER JEFFERSON MADE AWARE.
[2020-10-08] MEDS: SENNOSIDES 8.6 MG TABLET PO SCH (22:11)
--- NOTE | 2020-10-08 22:56 | NUR ---
RN NOTE JEFFERSON TA NP RESPONDED RESTART AGAIN HEPARIN DROP THE GOAL INR IS 2.5-3.5 NOTED AND CARRIED RESTART AGAIN HEPARIN DRIP CONTINUE TO MONITOR. Addendum: 10/08/20 at 2323 by GILBERTO KEENAN RN PLS DIS REGARD THIS NOTE IS WRONG DOCUMENTATION
--- NOTE | 2020-10-08 23:16 | NUR ---
RN NOTES, PER JEFFERSON TA ANNUAL CAMPAIGN MANAGER TO HOLD THE HEPARIN DRIP UNTIL HE REVIEW LABS, NOTED AND CARRIED OUT, WILL FOLLOW UP WITH HER FOR NEW ORDERS.
--- NOTE | 2020-10-09 01:50 | NUR ---
RN NOTE RECEIVED LAB RESULT APTT IS 51.1 CONTINUE THE SAME DOSE HEPARIN 1000 UNIT/HR NO CHANGES NOTIFIED JAZLYN PAULINO CONTINUE TO MONITOR.
[2020-10-09 04:00] VITALS: BP 127/70
--- NOTE | 2020-10-09 04:19 | NUR ---
RN NOTE RECEIVED LAB RESULT APTT IS 55.0 NO CHANGES ON HEPARIN DRIP 1000 UNIT/HR CONTINUE TO MONITOR.
[2020-10-09] MEDS: LEVOTHYROXINE SODIUM 25 MCG TABLET GT SCH (06:10)
--- NOTE | 2020-10-09 07:22 | NUR ---
RN CLOSING NOTE PATIENT REMAINS ON ALERT ORIENTED X3 VERBALLY RESPONSIVE NO SOB NOT ACUTE DASTRE NOTED ON 2L OXYGEN VIA NASAL CANNULA, O2:97%ON HEPARIN DRIP,ALL DUE MEDS GIVEN MD ORDERED KEPT CLEAN AND DRY ALL THE TIME,ENDORSE NEXT COMING SHIFT FOR CONTINUATION OF CARE.
--- NOTE | 2020-10-09 07:30 | NUR ---
RN OPENING NOTE PT LYING IN BED, ALBANIAN SPEAKING, A/Ox2 ON NC 2LPM, SPO2 96%, NO SIGNS OF RESP DISTRESS OR SOB, BREATHING EVEN AND UNLABORED. PT DENIES PAIN. PT HAS RAC #20, LT MIDLINE INFUSING HEPARIN DRIP @ 1000 UNIT/HR, AND LFA. ALL IV SITES FLUSHED, PATENT WITH NO SIGNS OF INFECTION OR INFILTRATION. PT USES URINAL AND BEDISDE COMMODE WITH ASSISTANCE. PTT LAB DUE @ 0900 TO REASSES HEPARIN DRIP. ALL PT SAFETY PRECAUTIONS IN PLACE. WILL CONT TO MONITOR
[2020-10-09 08:00] VITALS: BP 113/75
[2020-10-09 08:06] LABS: PTH, INTACT 180 pg/mL (15-65)
--- NOTE | 2020-10-09 09:21 | NUR ---
WOUND CARE CONSULT: LIMITED ASSESSMENT TODAY. PT LYING ON HIS LEFT SIDE AND REFUSED TO TURN TO OTHER SIDE. PT NOTED TO HAVE SKIN TEAR TO RT THIGH, PRESENT ON ADMISSION. RECOMMENDATIONS MADE FOR SKIN PROTECTION AND WOUND CARE. DISCUSSED WITH NURSING STAFF. IN AGREEMENT WITH PLAN OF CARE. Addendum: 10/09/20 at 0922 by JOSE WILKINS WNDNU Amended: Links added.
[2020-10-09] MEDS: DIVALPROEX SODIUM 125 MG CAP.SPRINK PO SCH ×2 (09:30→17:31)
[2020-10-09] MEDS: MEMANTINE HCL 5 MG TABLET PO SCH ×2 (09:30→17:34)
[2020-10-09] MEDS: METOPROLOL TARTRATE 25 MG TABLET PO SCH ×2 (09:31→17:32)
[2020-10-09] MEDS: MULTIVIT W/MINERALS 1 TAB TABLET PO SCH (09:31)
[2020-10-09] MEDS: hydrALAZINE HCL 50 MG TABLET PO SCH ×3 (09:34→17:00)
[2020-10-09] MEDS: NEPRO VAN 237 ML CAN PO SCH ×2 (09:34→17:34)
--- NOTE | 2020-10-09 09:55 | NUR ---
RN NOTE PTT FOR PT ABOVE 170. NOTIFIED SHELLS INSPECTOR TIMBO FARR, WILL HOLD HEPARIN DRIP (1000ML/HR) FOR 1 HOUR AND RESTART AT A RATE OF 850ML/HR PER PROTOCOL, THIS WAS CONFIRMED WITH CHARGE NURSE SOON
[2020-10-09 11:36] LABS: BASOPHILS % (AUTO) 0.6 % (0.0-2.0); HEMATOCRIT 34 % (39-51); HEMOGLOBIN 10.8 g/dL (13.5-17.5); LYMPHOCYTES # (AUTO) 0.3 /CMM (0.8-4.8); LYMPHOCYTES % (AUTO) 6.3 % (20.0-44.0); MEAN CORPUSCULAR HGB CONC 32 g/dl (31.0-36.0); MEAN CORPUSCULAR VOLUME 100 fL (80-96); MONOCYTES # (AUTO) 0.4 /CMM (0.1-1.30); NEUTROPHILS # (AUTO) 4.3 /CMM (1.8-8.9); NEUTROPHILS % (AUTO) 81.1 % (43.0-81.0); PLATELET COUNT (AUTO) 158 /CMM (150-450); RED BLOOD CELL COUNT(AUTO) 3.39 MIL/uL (4.5-6.0); WHITE BLOOD COUNT (AUTO) 5.3 K/uL (4.3-11.0)
[2020-10-09 11:44] LABS: ALANINE AMINOTRANSFERASE 28 U/L (12-78); ALKALINE PHOSPHATASE 96 U/L (46-116); ASPARTATE AMINOTRANSFERASE 53 U/L (15-37); BILIRUBIN,TOTAL 1.3 mg/dL (0.2-1.0); CALCIUM, SERUM 8.6 mg/dL (8.5-10.1); CARBON DIOXIDE 25 mmol/L (21-32); CHLORIDE 104 mmol/L (98-107); CREATININE 4.9 mg/dL (0.6-1.3); GLUCOSE 125 mg/dL (74-106); MAGNESIUM 2.1 mg/dL (1.8-2.4); PHOSPHORUS 4.4 mg/dL (2.5-4.9); POTASSIUM 3.8 mmol/L (3.5-5.1); SODIUM SERUM 142 mmol/L (136-145); TOTAL PROTEIN, SERUM 6.2 g/dL (6.4-8.2); UREA NITROGEN, BLOOD 56 mg/dL (7-18)
[2020-10-09 14:07] LABS: *SPE A/G RATIO 0.9 (0.7-1.7); *SPE ALBUMIN 2.7 g/dL (2.9-4.4); *SPE ALPHA-1-GLOBULIN 0.4 g/dL (0.0-0.4); *SPE ALPHA-2-GLOBULIN 0.5 g/dL (0.4-1.0); *SPE BETA GLOBULIN 0.9 g/dL (0.7-1.3); *SPE GLOBULIN, TOTAL 3.1 g/dL (2.2-3.9); *SPE M-SPIKE Not Observed g/dL (Not Observed); *SPEGAMMA GLOBULIN 1.3 g/dL (0.4-1.8)
[2020-10-09 16:00] VITALS: BP 99/54
[2020-10-09] MEDS: ATORVASTATIN 40 MG TABLET PO SCH (17:31)
[2020-10-09] MEDS: WARFARIN SODIUM 5 MG TABLET PO SCH (17:33)
--- NOTE | 2020-10-09 18:39 | NUR ---
RN CLOSING NOTE NO CHANGES OT PT STATUS DURING SHIFT. P TIN STABLE CONDITION, NO SIGNS OF RESP DISTRESS OR SOB. 1715 PTT LEVEL ABOVE 170, HEPARIN DRIP HELD PER PROTOCOL FOR 1HR, AND WILL RESTART AT 700 UNIT/HR AT 1930, TIMBO FARR NP, AWARE. ALL PT SAFETY PRECAUTIONS IN PLACE. WILL ENDORSE SAM TO ONCOMING RN
--- NOTE | 2020-10-09 19:20 | NUR ---
RN OPENING NOTE RECEIVED PATIENT IN BED RESTING ALERT ORIENTED X2 VERBALLY RESPONSIVE BURKINAN SPEAKER ON 2L OXYGEN O2:98% NO SOB NOT ACUTE DISTRESS NOTED IV SITE IS ON LEFT UPPER ARM MID LINE AND LEFT FOREARM,AND RIGHT AC INTACT PATENT,PATIENT IS ON HEPARIN DRIP PREVIOUS NURSE REPORTED,AND NOTIFIED HELD AND RESTART 700 UNIT/HR AT 1930,CONTINENT TO BOWEL/BLADDER BED ALARM IS ON BED IN LOW POSITION AND LOCKED CONTINUE TO MONITOR.
[2020-10-09 20:00] VITALS: BP 109/58
[2020-10-09] MEDS: SENNOSIDES 8.6 MG TABLET PO SCH (22:05)
--- NOTE | 2020-10-10 02:00 | NUR ---
RN NOTE RECEIVED LAB RESULTS APTT 102.7 PT14.5 INR 1.41 PROTOCOL SHOULD HOLD ONE HOUR AND DECREASE 3UNIT/KG/HR =150 UNIT/HR.CONTINUE TO MONITOR
--- NOTE | 2020-10-10 03:00 | NUR ---
RN NOTE START HEPARIN AFTER HELD ONE HOUR 550 UNIT/HR CONTINUE TO MONITOR.
[2020-10-10] MEDS: HEPARIN INFUSION/D5W 500 ML IV PRN (03:03)
[2020-10-10 04:00] VITALS: BP 110/74
[2020-10-10] MEDS: LEVOTHYROXINE SODIUM 25 MCG TABLET GT SCH (06:11)
--- NOTE | 2020-10-10 06:52 | NUR ---
RN CLOSING NOTE PATIENT REMAINS ON ALERT ORIENTED X2-3 VERBALLY RESPONSIVE NO SOB NOT ACUTE DISTRESS NOTED IV SITE IS ON LEFT UPPER ARM MID LINE INTACT PATIENT,ON HEPARIN DRIP 550 UNIT/HR AND NEXT APTT IS 9:00 AM.ALL DUE MEDS GIVEN MD ORDERED KEPT CLEAN AND DRY ALL THE TIME,KEPT COMFORTABLE ALL NEEDS MET.ENDORSE NEXT COMING SHIFT FOR CONTINUATION OF CARE.
--- NOTE | 2020-10-10 07:30 | NUR ---
RN OPENING NOTE PT LYING IN BED SEMIFOWLERS, SLOVAK SPEAKING, A/Ox2 ON NC 2LPM, SPO2 98%, NO SIGNS OF RESP DISTRESS OR SOB, BREATHING EVEN AND UNLABORED. PT DENIES PAIN. PT HAS RAC #20, LT MIDLINE INFUSING HEPARIN DRIP @ 550 UNIT/HR, AND LFA. ALL IV SITES FLUSHED, PATENT WITH NO SIGNS OF INFECTION OR INFILTRATION. PT USES URINAL AND BEDSIDE COMMODE WITH ASSISTANCE. PTT LAB DUE @ 0900 TO REASSES HEPARIN DRIP. PT HAS RT HIP LESION AND SACRAL SKIN TEAR, BOTH WITH MEPILEX. ALL PT SAFETY PRECAUTIONS IN PLACE. WILL CONT TO MONITOR
[2020-10-10 08:00] VITALS: BP 110/74
[2020-10-10] MEDS: hydrALAZINE HCL 50 MG TABLET PO SCH ×4 (09:00→17:00)
[2020-10-10] MEDS: NEPRO VAN 237 ML CAN PO SCH ×2 (09:00→17:37)
[2020-10-10 09:21] LABS: BASOPHILS % (AUTO) 0.7 % (0.0-2.0); EOSINOPHILS % (AUTO) 2.7 % (0.0-6.0); HEMATOCRIT 34 % (39-51); HEMOGLOBIN 11.1 g/dL (13.5-17.5); LYMPHOCYTES # (AUTO) 0.4 /CMM (0.8-4.8); LYMPHOCYTES % (AUTO) 7.1 % (20.0-44.0); MEAN CORPUSCULAR HGB CONC 32 g/dl (31.0-36.0); MEAN CORPUSCULAR VOLUME 100 fL (80-96); MONOCYTES # (AUTO) 0.4 /CMM (0.1-1.30); MONOCYTES % (AUTO) 6.6 % (2.0-12.0); NEUTROPHILS # (AUTO) 4.9 /CMM (1.8-8.9); NEUTROPHILS % (AUTO) 82.9 % (43.0-81.0); PLATELET COUNT (AUTO) 152 /CMM (150-450); RED BLOOD CELL COUNT(AUTO) 3.43 MIL/uL (4.5-6.0)
[2020-10-10 09:36] LABS: ALANINE AMINOTRANSFERASE 30 U/L (12-78); ALBUMIN 2.1 g/dL (3.4-5.0); ALKALINE PHOSPHATASE 93 U/L (46-116); ASPARTATE AMINOTRANSFERASE 38 U/L (15-37); BILIRUBIN,TOTAL 1.1 mg/dL (0.2-1.0); CALCIUM, SERUM 8.4 mg/dL (8.5-10.1); CARBON DIOXIDE 25 mmol/L (21-32); CHLORIDE 104 mmol/L (98-107); CREATININE 4.7 mg/dL (0.6-1.3); GLUCOSE 129 mg/dL (74-106); PHOSPHORUS 4.2 mg/dL (2.5-4.9); POTASSIUM 3.8 mmol/L (3.5-5.1); SODIUM SERUM 140 mmol/L (136-145); TOTAL PROTEIN, SERUM 6.2 g/dL (6.4-8.2); UREA NITROGEN, BLOOD 54 mg/dL (7-18)
[2020-10-10 09:36] LABS: BILIRUBIN,URINE NEGATIVE (NEGATIVE); COLOR,URINE YELLOW (YELLOW); LEUKOCYTE ESTERASE ,URINE NEGATIVE (NEGATIVE); NITRITE, URINE NEGATIVE (NEGATIVE); PROTEIN,URINE 100 mg/dl (NEGATIVE); UGLUCOSE NEGATIVE (NEGATIVE); UROBILINOGEN,URINE 0.2 EU/dL (0.2)
[2020-10-10] MEDS: MULTIVIT W/MINERALS 1 TAB TABLET PO SCH (09:39)
[2020-10-10] MEDS: MEMANTINE HCL 5 MG TABLET PO SCH ×2 (09:39→17:33)
[2020-10-10] MEDS: DIVALPROEX SODIUM 125 MG CAP.SPRINK PO SCH ×2 (09:39→17:33)
[2020-10-10] MEDS: METOPROLOL TARTRATE 25 MG TABLET PO SCH ×2 (09:40→17:36)
[2020-10-10 10:48] LABS: BACTERIA,URINE None seen /HPF (None Seen); CALCIUM OXALATE CRYSTALS,UR Rare /HPF (None Seen); SQUAMOUS EPITHELIAL CELL,UR Rare /HPF (None Seen); WBC,URINE 0-2 /HPF (0-3)
[2020-10-10 12:43] LABS: EOSINOPHIL,URINE None Seen
[2020-10-10 16:00] VITALS: BP 114/66
--- NOTE | 2020-10-10 16:15 | NUR ---
RN NOTE SPO2 OF 90% WAS WHILE PT HAS NC OFF. ONCE PLACED BACK, SPO2 RETURNED TO 96%
[2020-10-10] MEDS: WARFARIN SODIUM 5 MG TABLET PO SCH (17:35)
[2020-10-10] MEDS: ATORVASTATIN 40 MG TABLET PO SCH (17:35)
--- NOTE | 2020-10-10 19:00 | NUR ---
RN CLOSING NOTE NO CHANGES TO PT STATUS DURING SHIFT, PT IN STABLE CONDITION, ON 2L NC, NO SIGNS OF RESP DISTRESS OR SOB. PT HEPARIN DRIP REMAINS AT 400 UNIT/HR PER PROTOCOL. NEXT PTT DUE FOR 2300. ALL PT SAFETY PRECAUTION IN PLACE. WILL ENDORSE SAM TO ONCOMING RN
[2020-10-10 20:00] VITALS: BP 138/61
--- NOTE | 2020-10-10 20:18 | NUR ---
RN NOTE PATIENT A/O 2-3, VERBALLY RESPONSIVE. NO S/S OF ANY RESPIRATORY DISTRESS OR SOB. DENIES ANY PAIN. WITH LEFT UPPER ARM MIDLINE PATENT AND INTACT. ON HEPARIN DRIP 400 UNIT/HR. NEXT APPT @2300. BED LOCKED AND IN LOWEST POSITION. CALL LIGHT WITHIN REACH. SAFETY MEASURES IN PLACE. WILL CONTINUE TO MONITOR.
[2020-10-10] MEDS: SENNOSIDES 8.6 MG TABLET PO SCH (21:37)
--- NOTE | 2020-10-11 00:25 | NUR ---
APPT 55.8 . PT HEPARIN DRIP REMAINS AT 400 UNIT/HR PER PROTOCOL. WILL CONTINUE TO MONITOR.
[2020-10-11 04:00] VITALS: BP 93/60
[2020-10-11] MEDS: LEVOTHYROXINE SODIUM 25 MCG TABLET GT SCH (05:15)
[2020-10-11 07:27] LABS: BASOPHILS # (AUTO) 0.1 /CMM (0.0-0.2); BASOPHILS % (AUTO) 0.9 % (0.0-2.0); EOSINOPHILS % (AUTO) 2.1 % (0.0-6.0); HEMATOCRIT 34 % (39-51); HEMOGLOBIN 11.1 g/dL (13.5-17.5); LYMPHOCYTES # (AUTO) 0.4 /CMM (0.8-4.8); LYMPHOCYTES % (AUTO) 6.4 % (20.0-44.0); MEAN CORPUSCULAR HGB CONC 33 g/dl (31.0-36.0); MEAN CORPUSCULAR VOLUME 98 fL (80-96); MONOCYTES # (AUTO) 0.5 /CMM (0.1-1.30); NEUTROPHILS # (AUTO) 4.9 /CMM (1.8-8.9); NEUTROPHILS % (AUTO) 81.6 % (43.0-81.0); PLATELET COUNT (AUTO) 162 /CMM (150-450); RED BLOOD CELL COUNT(AUTO) 3.45 MIL/uL (4.5-6.0); WHITE BLOOD COUNT (AUTO) 6.1 K/uL (4.3-11.0)
[2020-10-11] MEDS ORDERED: BUMETANIDE INJ 4 MG in IV NS 0.9% 24 ML IV ONE (07:30)
--- NOTE | 2020-10-11 07:30 | NUR ---
RN OPENING NOTE PT LYING IN BED SEMIFOWLERS, DIVEHI SPEAKING, A/Ox2 ON NC 2LPM, SPO2 98%, NO SIGNS OF RESP DISTRESS OR SOB, BREATHING EVEN AND UNLABORED. PT DENIES PAIN. PT HAS LT MIDLINE INFUSING HEPARIN DRIP @ 400 UNIT/HR, AND LFA. ALL IV SITES FLUSHED, PATENT WITH NO SIGNS OF INFECTION OR INFILTRATION. PT USES URINAL AND BEDSIDE COMMODE WITH ASSISTANCE. AWAITING PTT RESULT FROM 0540 TO REASSES HEPARIN DRIP. PT HAS RT HIP LESION AND SACRAL SKIN TEAR, BOTH WITH MEPILEX. ALL PT SAFETY PRECAUTIONS IN PLACE. WILL CONT TO MONITOR
[2020-10-11 07:43] LABS: ALANINE AMINOTRANSFERASE 29 U/L (12-78); ALBUMIN 2.1 g/dL (3.4-5.0); ALKALINE PHOSPHATASE 94 U/L (46-116); ASPARTATE AMINOTRANSFERASE 41 U/L (15-37); CALCIUM, SERUM 8.6 mg/dL (8.5-10.1); CARBON DIOXIDE 26 mmol/L (21-32); CHLORIDE 104 mmol/L (98-107); CREATININE 4.8 mg/dL (0.6-1.3); GLUCOSE 80 mg/dL (74-106); MAGNESIUM 2.1 mg/dL (1.8-2.4); PHOSPHORUS 4.5 mg/dL (2.5-4.9); POTASSIUM 4.3 mmol/L (3.5-5.1); SODIUM SERUM 141 mmol/L (136-145); TOTAL PROTEIN, SERUM 6.3 g/dL (6.4-8.2); UREA NITROGEN, BLOOD 56 mg/dL (7-18)
[2020-10-11 08:00] VITALS: BP 147/87
--- NOTE | 2020-10-11 09:00 | NUR ---
RN NOTE PER PROTOCOL, CONT HEPARIN DRIP @ 400 UNIT/HR
[2020-10-11] MEDS: MULTIVIT W/MINERALS 1 TAB TABLET PO SCH (09:25)
[2020-10-11] MEDS: MEMANTINE HCL 5 MG TABLET PO SCH ×2 (09:25→18:19)
[2020-10-11] MEDS: DIVALPROEX SODIUM 125 MG CAP.SPRINK PO SCH ×2 (09:25→18:18)
[2020-10-11] MEDS: hydrALAZINE HCL 50 MG TABLET PO SCH ×3 (09:26→17:00)
[2020-10-11] MEDS: METOPROLOL TARTRATE 25 MG TABLET PO SCH ×2 (09:26→18:20)
[2020-10-11] MEDS: NEPRO VAN 237 ML CAN PO SCH ×2 (09:27→17:00)
[2020-10-11 16:00] VITALS: BP 115/58
[2020-10-11] MEDS: ATORVASTATIN 40 MG TABLET PO SCH (18:18)
[2020-10-11] MEDS: WARFARIN SODIUM 5 MG TABLET PO SCH (18:21)
--- NOTE | 2020-10-11 19:00 | NUR ---
RN CLOSING NOTE NO CHANGES TO PT STATUS DURING SHIFT, PT IN STABLE CONDITION, ON 2L NC, NO SIGNS OF RESP DISTRESS OR SOB. PT HEPARIN DRIP REMAINS AT 400 UNIT/HR PER PROTOCOL. NEXT PTT DUE FOR 10/12/20 0500. ALL PT SAFETY PRECAUTION IN PLACE. WILL ENDORSE ASM TO ONCOMING RN
[2020-10-11] MEDS: HEPARIN INFUSION/D5W 500 ML IV PRN (19:53)
[2020-10-11 20:00] VITALS: BP 109/73
[2020-10-11] MEDS: SENNOSIDES 8.6 MG TABLET PO SCH (21:09)
[2020-10-12 04:00] VITALS: BP 101/57
[2020-10-12] MEDS: LEVOTHYROXINE SODIUM 25 MCG TABLET GT SCH (05:30)
[2020-10-12 05:54] LABS: BASOPHILS % (AUTO) 0.4 % (0.0-2.0); EOSINOPHILS % (AUTO) 1.2 % (0.0-6.0); HEMATOCRIT 35 % (39-51); HEMOGLOBIN 11.3 g/dL (13.5-17.5); LYMPHOCYTES # (AUTO) 0.4 /CMM (0.8-4.8); LYMPHOCYTES % (AUTO) 5.9 % (20.0-44.0); MEAN CORPUSCULAR HGB CONC 33 g/dl (31.0-36.0); MEAN CORPUSCULAR VOLUME 98 fL (80-96); MONOCYTES # (AUTO) 0.6 /CMM (0.1-1.30); MONOCYTES % (AUTO) 8.9 % (2.0-12.0); NEUTROPHILS # (AUTO) 5.4 /CMM (1.8-8.9); NEUTROPHILS % (AUTO) 83.6 % (43.0-81.0); PLATELET COUNT (AUTO) 155 /CMM (150-450); RED BLOOD CELL COUNT(AUTO) 3.51 MIL/uL (4.5-6.0); WHITE BLOOD COUNT (AUTO) 6.5 K/uL (4.3-11.0)
[2020-10-12 06:16] LABS: ALANINE AMINOTRANSFERASE 32 U/L (12-78); ALBUMIN 2.2 g/dL (3.4-5.0); ALKALINE PHOSPHATASE 90 U/L (46-116); ASPARTATE AMINOTRANSFERASE 39 U/L (15-37); CARBON DIOXIDE 27 mmol/L (21-32); CHLORIDE 104 mmol/L (98-107); CREATININE 4.6 mg/dL (0.6-1.3); GLUCOSE 89 mg/dL (74-106); MAGNESIUM 2.1 mg/dL (1.8-2.4); PHOSPHORUS 4.7 mg/dL (2.5-4.9); POTASSIUM 4.1 mmol/L (3.5-5.1); SODIUM SERUM 142 mmol/L (136-145); TOTAL PROTEIN, SERUM 6.5 g/dL (6.4-8.2); UREA NITROGEN, BLOOD 56 mg/dL (7-18)
--- NOTE | 2020-10-12 07:30 | NUR ---
MS RN AM NOTE PT IN BED, SEMIFOWLERS, CONGOLESE SPEAKING, A/Ox2 WITH PERIOD OF CONFUSION, ON NC 2LPM, SPO2 97%, NO SIGNS OF RESP DISTRESS OR SOB, BREATHING EVEN AND UNLABORED. PT DENIES PAIN. PT HAS LT MIDLINE INFUSING HEPARIN DRIP @ 400 UNIT/HR, AND LFA. ALL IV SITES FLUSHED, PATENT WITH NO SIGNS OF INFECTION OR INFILTRATION. PT USES URINAL AND BEDSIDE COMMODE WITH ASSISTANCE. PTT RESULT 58.2 NO CHANGE TO HEPARIN DRIP. ON CARDIAC DIET. PT HAS RT HIP LESION AND SACRAL SKIN TEAR, BOTH WITH MEPILEX. ALL PT SAFETY PRECAUTIONS IN PLACE. WILL CONT TO MONITOR
[2020-10-12 08:00] VITALS: BP 99/66
[2020-10-12] MEDS: DIVALPROEX SODIUM 125 MG CAP.SPRINK PO SCH ×2 (08:51→17:44)
[2020-10-12] MEDS: NEPRO VAN 237 ML CAN PO SCH ×2 (08:51→17:45)
[2020-10-12] MEDS: MULTIVIT W/MINERALS 1 TAB TABLET PO SCH (08:51)
[2020-10-12] MEDS: MEMANTINE HCL 5 MG TABLET PO SCH ×2 (08:51→17:44)
[2020-10-12] MEDS: hydrALAZINE HCL 50 MG TABLET PO SCH ×3 (08:52→17:44)
[2020-10-12] MEDS: METOPROLOL TARTRATE 25 MG TABLET PO SCH ×2 (08:52→17:45)
--- NOTE | 2020-10-12 09:30 | NUR ---
RN NOTES DUE MEDS GIVEN
[2020-10-12 12:00] VITALS: BP 100/64
[2020-10-12] MEDS ORDERED: BUMETANIDE INJ 8 MG in IV NS 0.9% 48 ML IV ONE (14:00)
[2020-10-12 16:00] VITALS: BP 130/83
[2020-10-12] MEDS: ATORVASTATIN 40 MG TABLET PO SCH (17:45)
[2020-10-12] MEDS: WARFARIN SODIUM 5 MG TABLET PO SCH (17:46)
--- NOTE | 2020-10-12 18:24 | NUR ---
MS RN CLOSING NOTE PT SITTING IN CHAIR, LATVIAN SPEAKING, A/Ox2 WITH PERIOD OF CONFUSION, ON NC 2LPM, SPO2 98%, NO SIGNS OF RESP DISTRESS OR SOB, BREATHING EVEN AND UNLABORED. PT DENIES PAIN. PT HAS LT MIDLINE INFUSING HEPARIN DRIP @ 400 UNIT/HR, AND BUMEX AT 10 ML/HR. ALL IV SITES FLUSHED, PATENT WITH NO SIGNS OF INFECTION OR INFILTRATION. PT USES URINAL AND BEDSIDE COMMODE WITH ASSISTANCE. PTT RESULT 58.2 NO CHANGE TO HEPARIN DRIP. ON CARDIAC DIET. PT HAS RT HIP LESION AND SACRAL SKIN TEAR, BOTH WITH MEPILEX. ALL PT SAFETY PRECAUTIONS IN PLACE. ALL NEEDS MET. NO OTHER SIGNIFICANT CHANGE IN CONDITION. PM CARE DONE. WILL ENDORSE TO NEXT SHIFT FOR SAM.
--- NOTE | 2020-10-12 19:30 | NUR ---
RN OPENING NOTES: RECEIVED PT A/OX 2 IN BED RESTING COMFORTABLY. PATIENT IN NO S/SX OF ACUTE DISTRESS AT THIS TIME. NO SOB NOTED. PATIENT'S BREATHING IS EVEN AND UNLABORED. PATIENT IS ON 2L OF OXYGEN VIA NC; TOLERATING WELL. PATIENT ON CARDIAC DIET; TOLERATES WELL. NOTED IV SITE ON L UA MIDLINE #18 AND L FA #20; BOTH PATENT, INTACT AND FLUSHING WELL; NO S/S OF INFECTION OR INFILTRATION. WITH ONGOING HEPARIN DRIP @400UNITS/HR;MONITORED AND TITRATED PER PROTOCOL. WITH URINAL AT BEDSIDE. SAFETY MEASURES HAVE BEEN PROVIDED AND IMPLEMENTED. PATIENT BED ALARM IS ON. HEAD OF BED ELEVATED. BED IS LOCKED, IN LOWEST POSITION AND SIDE RAILS UP. CALL LIGHT WITHIN REACH OF THE PATIENT. APPLICABLE ISOLATION PRECAUTIONS IN PLACE. WILL CONTINUE TO MONITOR AND REASSESS FOR ANY CHANGES AND WILL CARRY OUT ANY ONGOING AND ACTIVE MD ORDER.
--- NOTE | 2020-10-12 19:34 | NUR ---
RN NOTES CALLED PHARMACY, SPOKE WITH TEA, ADVISED THAT PT HAS ONGOING HEPARIN DRIP LAST BAG WAS HOOKED LAST NIGHT 10.11.2020@1999, VERIFIED IF WE NEED TO FINISH BAG OR NEEDS TO CHANGE IT Q24H, SHE SAID BAG NEEDS TO BE CHANGED EVERY 24 HOURS. HOURLY CAREGIVER MADE AWARE.
[2020-10-12 20:00] VITALS: BP 135/67
[2020-10-12] MEDS: HEPARIN INFUSION/D5W 500 ML IV PRN (20:02)
[2020-10-12] MEDS: SENNOSIDES 8.6 MG TABLET PO SCH (21:05)
--- NOTE | 2020-10-12 23:00 | NUR ---
RN NOTES PATIENT REMAINS IN NO ACUTE RESPIRATORY DISTRESS AT THIS TIME, NO CHANGES TO CONDITION/STATUS. BENCH CHEMIST WELL AWARE. WILL CONTINUE TO MONITOR AND REASSESS FOR ANY CHANGES THROUGHOUT THE SHIFT
--- NOTE | 2020-10-13 03:00 | NUR ---
RN NOTES NO CHANGES IN PATIENT CONDITION AT THIS TIME PATIENT VITALS STABLE, NO SIGNS OF ACUTE RESPIRATORY DISTRESS. PATIENT STILL IN BED SLEEPING COMFORTABLY. NO COMPLAINTS OF PAIN OR ANY DISCOMFORT AT THIS TIME. WILL CONTINUE TO MONITOR AND REASSESS FOR ANY CHANGES THROUGHOUT THE SHIFT.
[2020-10-13 04:00] VITALS: BP 150/86
[2020-10-13] MEDS: LEVOTHYROXINE SODIUM 25 MCG TABLET GT SCH (06:13)
[2020-10-13 06:29] LABS: BASOPHILS % (AUTO) 0.9 % (0.0-2.0); EOSINOPHILS % (AUTO) 1.9 % (0.0-6.0); HEMATOCRIT 35 % (39-51); HEMOGLOBIN 11.3 g/dL (13.5-17.5); LYMPHOCYTES # (AUTO) 0.4 /CMM (0.8-4.8); LYMPHOCYTES % (AUTO) 7.4 % (20.0-44.0); MEAN CORPUSCULAR HGB CONC 32 g/dl (31.0-36.0); MEAN CORPUSCULAR VOLUME 99 fL (80-96); MONOCYTES # (AUTO) 0.6 /CMM (0.1-1.30); MONOCYTES % (AUTO) 10.3 % (2.0-12.0); NEUTROPHILS # (AUTO) 4.3 /CMM (1.8-8.9); NEUTROPHILS % (AUTO) 79.5 % (43.0-81.0); PLATELET COUNT (AUTO) 153 /CMM (150-450); RED BLOOD CELL COUNT(AUTO) 3.54 MIL/uL (4.5-6.0); WHITE BLOOD COUNT (AUTO) 5.4 K/uL (4.3-11.0)
[2020-10-13 06:30] LABS: CALCIUM, SERUM 9.1 mg/dL (8.5-10.1); CARBON DIOXIDE 26 mmol/L (21-32); CHLORIDE 103 mmol/L (98-107); CREATININE 4.6 mg/dL (0.6-1.3); GLUCOSE 95 mg/dL (74-106); POTASSIUM 4.3 mmol/L (3.5-5.1); SODIUM SERUM 142 mmol/L (136-145); UREA NITROGEN, BLOOD 61 mg/dL (7-18)
--- NOTE | 2020-10-13 07:01 | NUR ---
RN CLOSING NOTE: PATIENT REMAINS IN ROOM IN NO SIGNS OF RESPIRATORY DISTRESS, PATIENT STILL ON ROOM AIR;TOLERATING WELL SATURATING @ >95% SP02. WILL ENDORSE TO AM SHIFT RN TO SECURE URINE SPECIMEN WITHIN THE SHIFT. SAFETY MEASURES IMPLEMENTED, BED IN LOWEST POSITION, LOCKED, SIDE RAILS UP, CALL LIGHT WITHIN REACH. ALL NEEDS AND ORDERS ADDRESSED DURING THE SHIFT. IV ACCESS MAINTAINED INTACT, SECURED AND FLUSHING WELL. ALL DUE MEDS GIVEN ORDERED & SCHEDULED ; PATIENT TOLERATED WELL. PATIENT KEPT CLEAN AND COMFORTABLE WITHIN THE SHIFT. PATIENT ENDORSED TO INCOMING SHIFT RN WITH STABLE VITAL SIGN AND FOR CONTINUITY OF CARE. Addendum: 10/13/20 at 0701 by MIRANDA MURPHY RN PLS DISREGARD WRONG CLOSING NOTES
--- NOTE | 2020-10-13 07:03 | NUR ---
RN CLOSING NOTE: PATIENT REMAINS IN ROOM IN NO SIGNS OF RESPIRATORY DISTRESS, PATIENT STILL ON 2L VIA NC;TOLERATING WELL SATURATING @ >95% SP02. WITH ONGOING HEPARIN DRIP AT 400 UNIT/HR, MONITORED AND TITRATED PER HEPARIN PROTOCOL. PTT DUE FOR 0600 STILL PENDING RESULT, WILL ENDORSE TO AM SHIFT RN TO F/U AND ADDRESS ACCORDINLY ONCE PTT RESULT COMES OUT,ADJUSTMENT PER HEPARIN PROTOCOL. SAFETY MEASURES IMPLEMENTED, BED IN LOWEST POSITION, LOCKED, SIDE RAILS UP, CALL LIGHT WITHIN REACH. ALL NEEDS AND ORDERS ADDRESSED DURING THE SHIFT. IV ACCESS MAINTAINED INTACT, SECURED AND FLUSHING WELL. ALL DUE MEDS GIVEN ORDERED & SCHEDULED ; PATIENT TOLERATED WELL. PATIENT KEPT CLEAN AND COMFORTABLE WITHIN THE SHIFT. PATIENT ENDORSED TO INCOMING SHIFT RN WITH STABLE VITAL SIGN AND FOR CONTINUITY OF CARE.
--- NOTE | 2020-10-13 07:30 | NUR ---
VASCULAR ULTRASOUND TECHNICIAN OPENING NOTES Patient is alert and oriented with forgetfulness. He is on nasal canula at 2lpm with 02 sat of 98%. Patient is noted with left upper midline #18 , no s/s of bleeding noted and patent along with left forearm 20 gauze, patent and running well on tko.Patient is on heparin drip at 400 units/hour running well.No s/s of active bleeding noted. Patient teaching done regarding safety and fall precautions. Awaiting aPTT results. Will continue to monitor. Call light with in reach.
[2020-10-13 08:00] VITALS: BP 149/88
[2020-10-13] MEDS: MULTIVIT W/MINERALS 1 TAB TABLET PO SCH (08:10)
[2020-10-13] MEDS: DIVALPROEX SODIUM 125 MG CAP.SPRINK PO SCH ×2 (08:10→17:56)
[2020-10-13] MEDS: MEMANTINE HCL 5 MG TABLET PO SCH ×2 (08:10→17:57)
[2020-10-13] MEDS: hydrALAZINE HCL 50 MG TABLET PO SCH ×3 (08:11→17:00)
[2020-10-13] MEDS: METOPROLOL TARTRATE 25 MG TABLET PO SCH ×2 (08:12→17:00)
[2020-10-13] MEDS ORDERED: BUMETANIDE INJ 8 MG in IV NS 0.9% 48 ML IV ONE (09:00)
[2020-10-13] MEDS: NEPRO VAN 237 ML CAN PO SCH ×2 (09:34→17:00)
[2020-10-13 12:00] VITALS: BP 92/52
--- NOTE | 2020-10-13 12:00 | NUR ---
aPTT noted to be 58.9 today and infusion kept at the same rate of 400 units per hour, awaiting Inr results
[2020-10-13] MEDS: ATORVASTATIN 40 MG TABLET PO SCH (17:57)
[2020-10-13] MEDS: WARFARIN SODIUM 5 MG TABLET PO SCH (18:07)
--- NOTE | 2020-10-13 18:59 | NUR ---
POWER SCREWDRIVER OPERATOR CLOSING NOTES Patient is alert and oriented with forgetfulness. He is on nasal canula at 2lpm with 02 sat of 95%. Patient is noted with left upper midline #18 , no s/s of bleeding noted and patent and right ac 24 gauze and running well on tko.Patient is on heparin drip at 400 units/hour running well.Endorsed to next shift for SAM.
--- NOTE | 2020-10-13 19:30 | NUR ---
RN OPENING NOTES: RECEIVED SAO TOMEAN SPEAKING PT A/OX 2 IN BED SLEEPING COMFORTABLY. PATIENT IN NO S/SX OF ACUTE DISTRESS AT THIS TIME. NO SOB NOTED. PATIENT'S BREATHING IS EVEN AND UNLABORED. PATIENT IS ON 2L OF OXYGEN VIA NC; TOLERATING WELL; 02 SAT @96% AT THE TIME OF RECEIVED. PATIENT ON CARDIAC DIET; TOLERATES WELL. NOTED IV SITE ON L UA MIDLINE #18 AND R AC #24 #20; BOTH PATENT, INTACT AND FLUSHING WELL; NO S/S OF INFECTION OR INFILTRATION. WITH ONGOING HEPARIN DRIP @400UNITS/HR;MONITORED AND TITRATED PER PROTOCOL. WITH URINAL AT BEDSIDE. SAFETY MEASURES HAVE BEEN PROVIDED AND IMPLEMENTED. PATIENT BED ALARM IS ON. HEAD OF BED ELEVATED. BED IS LOCKED, IN LOWEST POSITION AND SIDE RAILS UP. CALL LIGHT WITHIN REACH OF THE PATIENT. APPLICABLE ISOLATION PRECAUTIONS IN PLACE. WILL CONTINUE TO MONITOR AND REASSESS FOR ANY CHANGES AND WILL CARRY OUT ANY ONGOING AND ACTIVE MD ORDER.
[2020-10-13 20:00] VITALS: BP 151/86
[2020-10-13] MEDS: HEPARIN INFUSION/D5W 500 ML IV PRN (20:02)
[2020-10-13] MEDS: SENNOSIDES 8.6 MG TABLET PO SCH (21:06)
--- NOTE | 2020-10-14 01:00 | NUR ---
RN NOTES NOTED IV LINE ON R AC #24 TO BE DISLODGED AND NON-PATENT. FACILITATED CHANGE AND REINSERTION OF IV LINE @ L HAND #24 AND R HAND #22 . POURER METAL MADE AWARE. WILL CONTINUE TO MONITOR AND ASSESS THROUGHOUT THE SHIFT.
[2020-10-14 04:00] VITALS: BP 132/81
[2020-10-14] MEDS: LEVOTHYROXINE SODIUM 25 MCG TABLET GT SCH (05:22)
[2020-10-14 06:29] LABS: BASOPHILS % (AUTO) 0.2 % (0.0-2.0); EOSINOPHILS % (AUTO) 0.2 % (0.0-6.0); HEMATOCRIT 37 % (39-51); LYMPHOCYTES # (AUTO) 0.3 /CMM (0.8-4.8); LYMPHOCYTES % (AUTO) 3.2 % (20.0-44.0); MEAN CORPUSCULAR HGB CONC 33 g/dl (31.0-36.0); MEAN CORPUSCULAR VOLUME 99 fL (80-96); MONOCYTES # (AUTO) 0.5 /CMM (0.1-1.30); MONOCYTES % (AUTO) 6.7 % (2.0-12.0); NEUTROPHILS # (AUTO) 7.1 /CMM (1.8-8.9); NEUTROPHILS % (AUTO) 89.7 % (43.0-81.0); PLATELET COUNT (AUTO) 173 /CMM (150-450); RED BLOOD CELL COUNT(AUTO) 3.68 MIL/uL (4.5-6.0)
[2020-10-14 06:52] LABS: ALANINE AMINOTRANSFERASE 39 U/L (12-78); ALBUMIN 2.4 g/dL (3.4-5.0); ALKALINE PHOSPHATASE 101 U/L (46-116); ASPARTATE AMINOTRANSFERASE 48 U/L (15-37); BILIRUBIN,TOTAL 1.5 mg/dL (0.2-1.0); CALCIUM, SERUM 9.4 mg/dL (8.5-10.1); CARBON DIOXIDE 24 mmol/L (21-32); CHLORIDE 102 mmol/L (98-107); GLUCOSE 105 mg/dL (74-106); PHOSPHORUS 5.8 mg/dL (2.5-4.9); POTASSIUM 4.5 mmol/L (3.5-5.1); SODIUM SERUM 141 mmol/L (136-145); TOTAL PROTEIN, SERUM 7.1 g/dL (6.4-8.2); UREA NITROGEN, BLOOD 64 mg/dL (7-18)
--- NOTE | 2020-10-14 07:02 | NUR ---
RN CLOSING NOTE: PATIENT REMAINS IN ROOM IN NO SIGNS OF RESPIRATORY DISTRESS, PATIENT STILL ON 2L VIA NC;TOLERATING WELL SATURATING @ 97% SP02 DURING END OF SHIFT. PATIENT STILL WITH ONGOING HEPARIN DRIP AT 400 UNIT/HR, MONITORED AND TITRATED PER HEPARIN PROTOCOL. PT INR AND PTT DUE FOR 0600 STILL PENDING RESULT, WILL ENDORSE TO AM SHIFT RN TO F/U AND ADDRESS ACCORDINLY ONCE RESULT COMES OUT,ADJUSTMENT PER HEPARIN PROTOCOL. SAFETY MEASURES IMPLEMENTED, BED IN LOWEST POSITION, LOCKED, SIDE RAILS UP, CALL LIGHT WITHIN REACH. ALL NEEDS AND ORDERS ADDRESSED DURING THE SHIFT. IV ACCESS MAINTAINED INTACT, SECURED AND FLUSHING WELL. ALL DUE MEDS GIVEN ORDERED & SCHEDULED ; PATIENT TOLERATED WELL. PATIENT KEPT CLEAN AND COMFORTABLE WITHIN THE SHIFT. PATIENT ENDORSED TO INCOMING SHIFT RN WITH STABLE VITAL SIGN AND FOR CONTINUITY OF CARE.
--- NOTE | 2020-10-14 07:30 | NUR ---
RN OPENING NOTES: RECEIVED BULGARIAN SPEAKING PT A/OX 2 IN BED SLEEPING COMFORTABLY. PATIENT IN NO S/SX OF ACUTE DISTRESS AT THIS TIME. NO SOB NOTED. PATIENT'S BREATHING IS EVEN AND UNLABORED. PATIENT IS ON 2L OF OXYGEN VIA NC; TOLERATING WELL; 02 SAT @98% AT THE TIME OF RECEIVED. PATIENT ON CARDIAC DIET; TOLERATES WELL. NOTED IV SITE ON L UA MIDLINE #18 AND L HAND 24G AND R HAND 22G; BOTH PATENT, INTACT AND FLUSHING WELL; NO S/S OF INFECTION OR INFILTRATION. WITH ONGOING HEPARIN DRIP @ 400UNITS/HR;MONITORED AND TITRATED PER PROTOCOL. WITH URINAL AT BEDSIDE. SAFETY MEASURES HAVE BEEN PROVIDED AND IMPLEMENTED. PATIENT BED ALARM IS ON. HEAD OF BED ELEVATED. BED IS LOCKED, IN LOWEST POSITION AND SIDE RAILS UP. CALL LIGHT WITHIN REACH OF THE PATIENT. APPLICABLE ISOLATION PRECAUTIONS IN PLACE. WILL CONTINUE TO MONITOR AND PROVIDE TREATMENT.
[2020-10-14 08:00] VITALS: BP 136/83
[2020-10-14] MEDS: MULTIVIT W/MINERALS 1 TAB TABLET PO SCH (09:02)
[2020-10-14 09:03] VITALS: BP 136/83
[2020-10-14] MEDS: METOPROLOL TARTRATE 25 MG TABLET PO SCH (09:03)
[2020-10-14] MEDS: hydrALAZINE HCL 50 MG TABLET PO SCH ×2 (09:03→13:00)
[2020-10-14] MEDS: DIVALPROEX SODIUM 125 MG CAP.SPRINK PO SCH (09:03)
[2020-10-14] MEDS: MEMANTINE HCL 5 MG TABLET PO SCH (09:03)
[2020-10-14] MEDS: NEPRO VAN 237 ML CAN PO SCH (09:04)
--- NOTE | 2020-10-14 12:15 | NUR ---
ALL IVS REMOVED WITHOUT S/S OF EXCESSIVE BLEEDING. PATIENT REFUSED PHOTOGRAPH OF SKIN TEAR ON THIGH.
--- NOTE | 2020-10-14 14:33 | NUR ---
DISCHARGE PATIENT DISCHARGED TO [facility]. REPORT GIVEN TO KARIME LÓPEZ AT SNF. REPORT GIVEN TO RAUL MOTT. PATIENT IN STABLE CONDITION AT TIME OF DISCHARGE. ALL BELONGINGS WITH PATIENT AT TIME OF DISCHARGE.
== END 2020-10-14 14:31 | DRG 280 ==
LOC: ER 11:29 → TELE1 15:26 → MEDSG1 10-07 14:15
PROVIDERS: ADMIT Family Medicine; ATTEND Nurse Practitioner Acute Care
PROC: 05H933Z Insertion of Infusion Device into Right Brachial Vein, Percutaneous Approach (ICD-10-PCS; principal; 2020-10-09)
DX: I49.9 Cardiac arrhythmia, unspecified (principal); E43 Unspecified severe protein-calorie malnutrition; I21.A1 Myocardial infarction type 2; I50.23 Acute on chronic systolic (congestive) heart failure; N17.0 Acute kidney failure with tubular necrosis; K72.00 Acute and subacute hepatic failure without coma; I13.0 Hypertensive heart and chronic kidney disease with heart failure and stage 1 through stage 4 chronic kidney disease, or unspecified chronic kidney disease; I48.20 Chronic atrial fibrillation, unspecified; N18.4 Chronic kidney disease, stage 4 (severe); D68.59 Other primary thrombophilia; D62 Acute posthemorrhagic anemia; F03.91 Unspecified dementia, unspecified severity, with behavioral disturbance; I42.9 Cardiomyopathy, unspecified; I25.2 Old myocardial infarction; I70.0 Atherosclerosis of aorta; Z90.5 Acquired absence of kidney; Z95.2 Presence of prosthetic heart valve; Z86.73 Personal history of transient ischemic attack (TIA), and cerebral infarction without residual deficits; E03.9 Hypothyroidism, unspecified; Z74.09 Other reduced mobility; D63.1 Anemia in chronic kidney disease; F29 Unspecified psychosis not due to a substance or known physiological condition; Z79.01 Long term (current) use of anticoagulants; Z79.899 Other long term (current) drug therapy; N25.0 Renal osteodystrophy; I67.2 Cerebral atherosclerosis
CPT/HCPCS: 36410; 36415; 70450-TC; 71045-TC; 76770-TC; 80048-TC; 80053-TC; 80061-TC; 80076-TC; 81001; 82550-TC; 83735-TC; 83970; 84100-TC; 84155; 84165; 84484-TC; 85025-TC; 85610-TC; 85730-TC; 87081-TC; 93307-TC; 93880-TC; A6403; C9803; G0378; J1644; J1940; J3430; J3490; J7030; J7050; J7060

== ENCOUNTER 2020-11-03 21:03 | Inpatient (IN) | payer MEDICARE, OTHER ==
[~2020-11-03] VITALS: Ht 157.5 cm; Wt 54.4 kg
[~2020-11-03 21:03] MED LIST changes: -AMIN887L PO; -CEPH-570 PO; +MAGN400O6 PO; +NA P133E RC; +NUT.237L67 PO
--- NOTE | 2020-11-03 21:16 | NUR ---
CALLED FOR COVID SWAB
--- NOTE | 2020-11-03 21:16 | NUR ---
PT BETTE FROM [facility] FOR HIGH INR OF 7.53 AND FAILURE TO THRIVE. SENT BY PMD SRINIVAS GRIMES. PT FULL CODE, PLACED IN BED 11 ON MONITOR AND PULSE OX. ER MD AT BEDSIDE FOR EVAL, AWAITING ORDERS.
[2020-11-03] MEDS ORDERED: IV NS 0.9% 1,000 ML BAG IV ONE (21:30)
[2020-11-03 21:38] LABS: BASOPHILS # (AUTO) 0.1 /CMM (0.0-0.2); BASOPHILS % (AUTO) 1.4 % (0.0-2.0); EOSINOPHILS % (AUTO) 0.7 % (0.0-6.0); HEMATOCRIT 38 % (39-51); LYMPHOCYTES # (AUTO) 0.4 /CMM (0.8-4.8); LYMPHOCYTES % (AUTO) 6.5 % (20.0-44.0); MEAN CORPUSCULAR HGB CONC 32 g/dl (31.0-36.0); MEAN CORPUSCULAR VOLUME 100 fL (80-96); MONOCYTES # (AUTO) 0.3 /CMM (0.1-1.30); MONOCYTES % (AUTO) 5.9 % (2.0-12.0); NEUTROPHILS # (AUTO) 4.9 /CMM (1.8-8.9); NEUTROPHILS % (AUTO) 85.5 % (43.0-81.0); PLATELET COUNT (AUTO) 163 /CMM (150-450); RED BLOOD CELL COUNT(AUTO) 3.83 MIL/uL (4.5-6.0); WHITE BLOOD COUNT (AUTO) 5.7 K/uL (4.3-11.0)
--- NOTE | 2020-11-03 21:39 | NUR ---
COVID SWAB SENT TO LAB
[2020-11-03 21:54] LABS: ALANINE AMINOTRANSFERASE 76 U/L (12-78); ALBUMIN 2.6 g/dL (3.4-5.0); ALKALINE PHOSPHATASE 141 U/L (46-116); ASPARTATE AMINOTRANSFERASE 79 U/L (15-37); BILIRUBIN,DIRECT 1.3 mg/dL (0.0-0.2); BILIRUBIN,TOTAL 2.1 mg/dL (0.2-1.0); CALCIUM, SERUM 8.9 mg/dL (8.5-10.1); CARBON DIOXIDE 19 mmol/L (21-32); CHLORIDE 105 mmol/L (98-107); CREATININE 5.8 mg/dL (0.6-1.3); GLUCOSE 103 mg/dL (74-106); POTASSIUM 4.3 mmol/L (3.5-5.1); SODIUM SERUM 142 mmol/L (136-145); TOTAL PROTEIN, SERUM 7.3 g/dL (6.4-8.2); UREA NITROGEN, BLOOD 65 mg/dL (7-18)
[2020-11-03] MEDS ORDERED: LIDOCAINE 2% JEL UROJET 10 ML MM ONE ×2 (21:55→22:00)
[2020-11-03] MEDS ORDERED: AZITHROMYCIN 500 MG in IV D5W 250 ML IV ONE (22:00)
[2020-11-03] MEDS ORDERED: CEFTRIAXONE 1GM BAG (ER ONLY) 50 ML IV ONE ×2 (22:00→22:08)
--- NOTE | 2020-11-03 22:06 | NUR ---
urine collected and sent to the lab
--- NOTE | 2020-11-03 22:16 | NUR ---
DR. ZAMARRIPA SPEAKING WITH DR. TILA BARRY REGARDING ADMISSION
[2020-11-03] MEDS ORDERED: AZITHROMYCIN 500 MG VIAL ONE (22:20)
[2020-11-03 22:50] LABS: THYROID STIMULATING HORMONE 5.897 uIU/mL (0.358-3.74)
--- NOTE | 2020-11-03 23:01 | NUR ---
REC'D NEG COVID RESULTS. AWARE
[2020-11-03 23:08] LABS: BILIRUBIN,URINE NEGATIVE (NEGATIVE); COLOR,URINE DARK YELLOW (YELLOW); LEUKOCYTE ESTERASE ,URINE NEGATIVE (NEGATIVE); NITRITE, URINE NEGATIVE (NEGATIVE); PH,URINE 5.5 (5.0-8.0); PROTEIN,URINE 100 mg/dl (NEGATIVE); UGLUCOSE NEGATIVE (NEGATIVE); UROBILINOGEN,URINE 0.2 EU/dL (0.2)
[2020-11-03 23:19] LABS: BACTERIA,URINE None seen /HPF (None Seen); RBC,URINE 0-2 /HPF (0-2); SQUAMOUS EPITHELIAL CELL,UR Few /HPF (None Seen); URINE AMORPHOUS URATE Few /HPF (None Seen); WBC,URINE 0-2 /HPF (0-3)
[2020-11-03] MEDS ORDERED: NA PHOS,M-B/NA PHOS,DI-BA 1 EA ENEMA RC PRN (23:30)
[2020-11-03] MEDS ORDERED: CLONIDINE HCL 0.1 MG TABLET PO PRN (23:30)
[2020-11-03] MEDS ORDERED: BISACODYL SUPP (10 MG) 10 MG/SUPP.RECT SUPP.RECT RC PRN (23:30)
[2020-11-03] MEDS ORDERED: ONDANSETRON HCL/PF 4 MG/2 ML VIAL IVP PRN (23:30)
[2020-11-03] MEDS ORDERED: MORPHINE SULFATE INJ 2 MG/ML DISP.SYRIN IV PRN (23:30)
[2020-11-03] MEDS ORDERED: Z GUARD REMEDY 2 OZ OINT TP PRN (23:30)
--- NOTE | 2020-11-03 23:37 | NUR ---
REPORT GIVEN TO NIKOLAI SCHAFFER FOR SAM.
[2020-11-03 23:50] VITALS: BP 98/54
[2020-11-04] VITALS (7 sets, daily range): BP systolic 129–145; BP diastolic 56–98
--- NOTE | 2020-11-04 00:28 | NUR ---
MS/TELE/RN RECEIVED PATIENT FROM [facility] BY TURNER AT AROUND 2350. PATIENT WAS AWAKE, ALERT, ORIENTED TO NAME ONLY, UNABLE TO STATE CORRECTLY THE DATE OF AND PLACE, HENCE I WAS NOT ABLE TO OBTAIN ADMISSION INFORMATIONS, PHYSICAL ASSESSMENT DONE, MADE COMFORTABLE IN BED, FALL PRECAUTIONS PER PROTOCOL INSTITUTED, PLACED CALL LIGHT IN REACH, ALL NEEDS ATTENDED, WILL MONITOR.
--- NOTE | 2020-11-04 01:58 | NUR ---
MS/TELE/RN DR. ADORNO NOTIFIED RE: LACTIC ACID 4.8, INR 10. ORDER OF VITAMIN K 5 MG IM X 1 NOW WAS RECEIVED. ORDER CARRIED OUT.
[2020-11-04] MEDS ORDERED: PHYTONADIONE INJ 10 MG/1 ML AMPUL IM ONE (02:00)
--- NOTE | 2020-11-04 02:11 | NUR ---
MS/SOURAV/RN MADE A CALL TO [facility], , TO OBTAIN ADMISSION INFORMATIONS, NO ANSWER, REPEATED CALL 3 TIMES, BUT NO ANSWER.
--- NOTE | 2020-11-04 02:44 | NUR ---
MS/TELE/RN UNABLE TO OBTAIN TEMP ORALLY AND AXILLARY, TOOK TEMP RECTALLY=94.7, DR. ADORNO NOTIFIED. DEONTE CHAWLA APPLIED. WILL MONITOR.
--- NOTE | 2020-11-04 03:13 | NUR ---
MS/TELE/RN CALLED [facility] TO VERIFY VITAMIN K MEDICATION ROUTE. LEFT MESSAGE.
--- NOTE | 2020-11-04 03:23 | NUR ---
MS/TELE/RN RECEIVED ORDER BY TXT FROM DR. ADORNO RE: VITAMIN K 5 MG IVPB.
[2020-11-04] MEDS ORDERED: PHYTONADIONE INJ 10 MG/1 ML AMPUL IV ONE (03:30)
[2020-11-04] MEDS ORDERED: PHYTONADIONE IV ONE (03:33)
[2020-11-04] MEDS ORDERED: NS 0.9% IV ONE (03:33)
[2020-11-04] MEDS ORDERED: PIPERACILLIN /TAZOBACTAM 2.25 G VIAL IV ONE (04:17)
[2020-11-04] MEDS ORDERED: PIPERACILLIN /TAZOBACTAM 2.25 G in IV D5W 50 ML IV SCH (05:00)
[2020-11-04] MEDS: hydrALAZINE HCL 50 MG TABLET PO SCH ×3 (05:00→20:12)
--- NOTE | 2020-11-04 05:37 | NUR ---
MS/TELE/RN APRESOLINE 50 MG PO WAS NOT GIVEN DUE TO BP ON ADMISSION WAS 94/54.
[2020-11-04] MEDS: LEVOTHYROXINE SODIUM 25 MCG TABLET GT SCH ×2 (06:00→06:44)
[2020-11-04 06:26] LABS: BASOPHILS # (AUTO) 0.1 /CMM (0.0-0.2); BASOPHILS % (AUTO) 1.1 % (0.0-2.0); HEMATOCRIT 32 % (39-51); HEMOGLOBIN 10.4 g/dL (13.5-17.5); LYMPHOCYTES # (AUTO) 0.5 /CMM (0.8-4.8); MEAN CORPUSCULAR HGB CONC 32 g/dl (31.0-36.0); MEAN CORPUSCULAR VOLUME 98 fL (80-96); MONOCYTES # (AUTO) 0.3 /CMM (0.1-1.30); MONOCYTES % (AUTO) 6.8 % (2.0-12.0); NEUTROPHILS # (AUTO) 4.1 /CMM (1.8-8.9); NEUTROPHILS % (AUTO) 81.1 % (43.0-81.0); PLATELET COUNT (AUTO) 137 /CMM (150-450); WHITE BLOOD COUNT (AUTO) 5.1 K/uL (4.3-11.0)
--- NOTE | 2020-11-04 06:56 | NUR ---
MS/TELE/RN PATIENT IS LYING ON BED AWAKE, ALERT, COMFORTABLE, NO C/O PAIN, NO DISTRESS NOTED, REFUSED 0600 MED, LEVOTHYROXINE, ALL NEEDS ATTENDED AT THIS TIME, WILL CONTINUE TO MONITOR.
[2020-11-04 07:13] LABS: ALANINE AMINOTRANSFERASE 56 U/L (12-78); ALBUMIN 1.9 g/dL (3.4-5.0); ALKALINE PHOSPHATASE 108 U/L (46-116); ASPARTATE AMINOTRANSFERASE 65 U/L (15-37); BILIRUBIN,TOTAL 1.4 mg/dL (0.2-1.0); CALCIUM, SERUM 8.4 mg/dL (8.5-10.1); CARBON DIOXIDE 22 mmol/L (21-32); CHLORIDE 107 mmol/L (98-107); CREATININE 5.6 mg/dL (0.6-1.3); GLUCOSE 94 mg/dL (74-106); PHOSPHORUS 5.1 mg/dL (2.5-4.9); SODIUM SERUM 142 mmol/L (136-145); TOTAL PROTEIN, SERUM 5.6 g/dL (6.4-8.2); UREA NITROGEN, BLOOD 60 mg/dL (7-18)
--- NOTE | 2020-11-04 07:15 | NUR ---
CAUSTIC STRENGTH INSPECTOR NOTE RECEIVED REPORT CRITICAL LAB VALUE PT >100 INR >10 FROM KARIME YANEZ. INFORMED [facility].
--- NOTE | 2020-11-04 07:15 | NUR ---
PUBLIC HEALTH AIDES TEACHER OPENING NOTE RECEIVED PATIENT IN BED. A/O X1-2. BARBADIAN SPEAKING. NC O2 @ 2 LPM. NO SOB NOTED. IN NO APPARENT DISTRESS. TELE READING OF AFIB WITH PVC. CURRENTLY ON BEAR HUGGER, TEMP AT THIS TIME IS AT 97.5 IV ACCESS ON R WRIST #20 G, INTACT. SAFETY MEASURES MAINTAINED. BED IN LOWEST POSITION, BRAKES LOCKED. SIDE RAILS UP X2. CALL LIGHT WITHIN REACH. WILL CONTINUE TO MONITOR TEMP AND PLAN OF CARE.
[2020-11-04 07:22] LABS: CHOLESTEROL 102 mg/dL (<200); HDL CHOLESTEROL 59 mg/dL (40-60); LDL 36 mg/dL (0-99); THYROID STIMULATING HORMONE 4.225 uIU/mL (0.358-3.74); TRIGLYCERIDES 86 mg/dL (30-150)
[2020-11-04] MEDS: PANTOPRAZOLE 40 MG TABLET.DR PO SCH (07:30)
[2020-11-04] MEDS ORDERED: ACETAMINOPHEN 325 MG TABLET PO PRN (07:30)
--- NOTE | 2020-11-04 07:36 | NUR ---
MS/TELE/RN RECEIVED A CALL FROM LAB RE: INR 10, PT>100. ENDORSED TO KARIME GRESHAM.
--- NOTE | 2020-11-04 07:50 | NUR ---
DELIVERY PERSON NOTE CRITICAL VALUE RESULT LACTIC ACID 2.7 MANFRED KEYES IS MADE AWARE.
[2020-11-04] MEDS: NEPRO VAN 237 ML CAN PO SCH ×2 (08:19→17:07)
[2020-11-04] MEDS: METOPROLOL TARTRATE 25 MG TABLET PO SCH ×2 (08:25→20:12)
[2020-11-04] MEDS: MEMANTINE HCL 5 MG TABLET PO SCH ×2 (08:25→17:07)
[2020-11-04] MEDS: DIVALPROEX SODIUM 125 MG TABLET.DR PO SCH ×2 (08:25→17:07)
[2020-11-04] MEDS: MULTIVIT W/MINERALS 1 TAB TABLET PO SCH (08:26)
--- NOTE | 2020-11-04 08:26 | NUR ---
SOURAV SCHAFFER OPENING NOTE REFUSED AM MEDS. EXPLAINED ALL RISKS AND BENEFITS. Addendum: 11/04/20 at 0827 by MP SULLIVAN RN SOURAV SCHAFFER NOTE*
[2020-11-04 08:53] LABS: B-TYPE NATRIURETIC PEPTIDE 163576 PG/ML (0-125)
--- NOTE | 2020-11-04 12:19 | NUR ---
STAPLER MACHINE NOTE PATIENT'S ORAL TEMP 97.4 REMOVED VAHE CHAWLA. WILL CONTINUE TO MONITOR TEMP ALL THROUGHOUT THE SHIFT.
[2020-11-04] MEDS: PIPERACILLIN /TAZOBACTAM 2.25 G in IV D5W 50 ML IV SCH ×2 (12:36→20:13)
[2020-11-04] MEDS ORDERED: BUMETANIDE INJ 4 MG in IV D5W 24 ML IV ONE (16:00)
--- NOTE | 2020-11-04 16:50 | NUR ---
MORALS SQUAD POLICE OFFICER NOTE PATIENT REMOVED IV. REINSERTED A NEW LINE ON R WRIST #22 G, INTACT AND PATENT.
[2020-11-04] MEDS ORDERED: WARFARIN SODIUM 2 MG TABLET PO SCH (17:00)
--- NOTE | 2020-11-04 18:16 | NUR ---
SUPPLEMENTAL MANAGER CLOSING NOTE PATIENT RESTING IN BED. A/O X1-2. NC O2 @ 2 LPM. NO SOB NOTED. NO S/S OF RESPIRATORY DISTRESS. IV ACCESS ON R WRIST #20 G, INTACT, BUMEX RUNNING AT 5 ML/HR. ALL NEEDS HAVE BEEN MET. ROUTINE MEDS WERE GIVEN ORDERED. SAFETY MEASURES MAINTAINED. BED IN LOWEST POSITION, BRAKES LOCKED. SIDE RAILS UP X2. CALL LIGHT WITHIN REACH. WILL ENDORSE CONTINUITY OF CARE TO ONCOMING SHIFT.
--- NOTE | 2020-11-04 19:23 | NUR ---
RN NOTES PATIENT RESTING IN BED. A/O X1-2. NC O2 @ 2 LPM. NO SOB NOTED. NO S/S OF RESPIRATORY DISTRESS. IV ACCESS ON R WRIST #20 G, INTACT, BUMEX RUNNING AT 5 ML/HR. ALL NEEDS HAVE BEEN MET. ROUTINE MEDS WERE GIVEN ORDERED. SAFETY MEASURES MAINTAINED. BED IN LOWEST POSITION, BRAKES LOCKED. SIDE RAILS UP X2. CALL LIGHT WITHIN REACH. WILL CONTINUE TO MONITOR.
[2020-11-04] MEDS: SENNOSIDES 8.6 MG TABLET PO SCH (22:17)
[2020-11-05] VITALS: BP 139/59
[2020-11-05] MEDS: PIPERACILLIN /TAZOBACTAM 2.25 G in IV D5W 50 ML IV SCH ×3 (04:47→20:53)
[2020-11-05] MEDS: hydrALAZINE HCL 50 MG TABLET PO SCH ×3 (04:49→21:10)
[2020-11-05] MEDS: LEVOTHYROXINE SODIUM 25 MCG TABLET GT SCH (05:17)
[2020-11-05 06:08] LABS: BASOPHILS % (AUTO) 0.8 % (0.0-2.0); EOSINOPHILS % (AUTO) 0.8 % (0.0-6.0); HEMATOCRIT 34 % (39-51); HEMOGLOBIN 10.8 g/dL (13.5-17.5); LYMPHOCYTES # (AUTO) 0.5 /CMM (0.8-4.8); LYMPHOCYTES % (AUTO) 9.2 % (20.0-44.0); MEAN CORPUSCULAR HGB CONC 32 g/dl (31.0-36.0); MEAN CORPUSCULAR VOLUME 99 fL (80-96); MONOCYTES # (AUTO) 0.4 /CMM (0.1-1.30); MONOCYTES % (AUTO) 6.7 % (2.0-12.0); NEUTROPHILS # (AUTO) 4.4 /CMM (1.8-8.9); NEUTROPHILS % (AUTO) 82.5 % (43.0-81.0); PLATELET COUNT (AUTO) 161 /CMM (150-450); RED BLOOD CELL COUNT(AUTO) 3.45 MIL/uL (4.5-6.0); WHITE BLOOD COUNT (AUTO) 5.3 K/uL (4.3-11.0)
--- NOTE | 2020-11-05 06:32 | NUR ---
RN NOTES PATIENT RESTING IN BED. A/O X1-2. NC O2 @ 1 LPM. NO SOB NOTED. NO S/S OF RESPIRATORY DISTRESS. IV ACCESS ON L AC #22 G, INTACT.ALL NEEDS HAVE BEEN MET. ROUTINE MEDS WERE GIVEN ORDERED. PT HAS BILATERAL SOFT WRIST RESTRAINTS CIRCULATION CHECKED WATER AND NOURISHMENT OFFERED.SAFETY MEASURES MAINTAINED. BED IN LOWEST POSITION, BRAKES LOCKED. SIDE RAILS UP X2. CALL LIGHT WITHIN REACH. WILL ENDORSE CARE..
[2020-11-05 06:52] LABS: CALCIUM, SERUM 8.6 mg/dL (8.5-10.1); CARBON DIOXIDE 20 mmol/L (21-32); CHLORIDE 108 mmol/L (98-107); CREATININE 5.8 mg/dL (0.6-1.3); GLUCOSE 60 mg/dL (74-106); MAGNESIUM 2.1 mg/dL (1.8-2.4); PHOSPHORUS 4.7 mg/dL (2.5-4.9); POTASSIUM 3.6 mmol/L (3.5-5.1); SODIUM SERUM 144 mmol/L (136-145); UREA NITROGEN, BLOOD 62 mg/dL (7-18)
[2020-11-05] MEDS: PANTOPRAZOLE 40 MG TABLET.DR PO SCH (07:50)
--- NOTE | 2020-11-05 08:00 | NUR ---
RN Opening note Received patient in bed, AO x 2 Hong Konger speaking, able to responds all stimuli. Does no appears pain or distress. Respiratory even and unlabored with oxygen at 1LPM via N/C. Skin is warm to touch, keep clean/dry, intact IV site on left AC G 20. Kept elevated HOB for ensure airway and aspiration precaution, also lowest bed position for safety. Call light within reach, will continue to monitor.
[2020-11-05] MEDS: DIVALPROEX SODIUM 125 MG TABLET.DR PO SCH ×2 (08:08→16:37)
[2020-11-05] MEDS: MEMANTINE HCL 5 MG TABLET PO SCH ×2 (08:08→16:37)
[2020-11-05] MEDS: MULTIVIT W/MINERALS 1 TAB TABLET PO SCH (08:08)
[2020-11-05] MEDS: METOPROLOL TARTRATE 25 MG TABLET PO SCH ×2 (08:08→21:08)
[2020-11-05 08:49] VITALS: BP 149/86
[2020-11-05] MEDS: NEPRO VAN 237 ML CAN PO SCH ×2 (09:16→16:37)
[2020-11-05 16:04] VITALS: BP 134/55
--- NOTE | 2020-11-05 18:00 | NUR ---
RN Closing note Patient in bed resting, does no appears pain or distress, all due medications taken. Respiratory even and unlabored with oxygen at 1LPM and O2sat 100%, no coughing or sob observed. Skin is warm to touch, keep clean/dry. Kept elevated HOB for ensure airway and aspiration precaution, also lowest bed position for safety. Call light within reach, will endorse shift lab technician.
--- NOTE | 2020-11-05 19:27 | NUR ---
RN NOTES PT RECEIVED RESTING IN BED NO RESPIRATORY DISTRESS NOTED OR REPORTED. ON ROOM AIR TOLERATING WELL. RESPIRATIONS EVEN AND UNLABORED. SKIN IS WARM TO THE TOUCH . HOB ELEVATED NO PAIN OR DISCOMFORT NOTED OR REPORTED AT THIS TIME. PT CALL LIGHT WITHIN REACH. SAFETY PRECAUTIONS FOLLOWED. WILL CONTINUE TO MONITOR.
[2020-11-05 20:00] VITALS: BP 134/84
[2020-11-05 21:05] VITALS: BP 134/84
[2020-11-05] MEDS: SENNOSIDES 8.6 MG TABLET PO SCH (21:08)
[2020-11-06] MEDS: PIPERACILLIN /TAZOBACTAM 2.25 G in IV D5W 50 ML IV SCH ×3 (04:00→21:23)
[2020-11-06] MEDS: hydrALAZINE HCL 50 MG TABLET PO SCH ×3 (04:01→20:58)
[2020-11-06] MEDS: LEVOTHYROXINE SODIUM 25 MCG TABLET GT SCH (05:08)
[2020-11-06 06:25] LABS: BASOPHILS % (AUTO) 0.6 % (0.0-2.0); EOSINOPHILS % (AUTO) 0.3 % (0.0-6.0); HEMATOCRIT 33 % (39-51); HEMOGLOBIN 10.5 g/dL (13.5-17.5); LYMPHOCYTES # (AUTO) 0.3 /CMM (0.8-4.8); LYMPHOCYTES % (AUTO) 4.3 % (20.0-44.0); MEAN CORPUSCULAR HGB CONC 32 g/dl (31.0-36.0); MEAN CORPUSCULAR VOLUME 98 fL (80-96); MONOCYTES # (AUTO) 0.4 /CMM (0.1-1.30); NEUTROPHILS # (AUTO) 6.2 /CMM (1.8-8.9); NEUTROPHILS % (AUTO) 88.8 % (43.0-81.0); PLATELET COUNT (AUTO) 172 /CMM (150-450); RED BLOOD CELL COUNT(AUTO) 3.35 MIL/uL (4.5-6.0)
[2020-11-06 06:40] LABS: CALCIUM, SERUM 8.9 mg/dL (8.5-10.1); CARBON DIOXIDE 20 mmol/L (21-32); CHLORIDE 108 mmol/L (98-107); CREATININE 5.8 mg/dL (0.6-1.3); GLUCOSE 97 mg/dL (74-106); POTASSIUM 3.7 mmol/L (3.5-5.1); SODIUM SERUM 144 mmol/L (136-145); UREA NITROGEN, BLOOD 61 mg/dL (7-18)
--- NOTE | 2020-11-06 06:59 | NUR ---
RN NOTES PT RESTING IN BED NO RESPIRATORY DISTRESS NOTED OR REPORTED. ON ROOM AIR TOLERATING WELL. RESPIRATIONS EVEN AND UNLABORED. SKIN IS WARM TO THE TOUCH . HOB ELEVATED NO PAIN OR DISCOMFORT NOTED OR REPORTED AT THIS TIME. PT CALL LIGHT WITHIN REACH. SAFETY PRECAUTIONS FOLLOWED. WILL CONTINUE TO MONITOR.
--- NOTE | 2020-11-06 07:10 | NUR ---
MS RN OPENING NOTE PATIENT RESTING IN BED. A/O X 1-2. ON ROOM AIR, NO RESPIRATORY DISTRESS NOTED OR REPORTED. RESPIRATIONS EVEN AND UNLABORED. HOB ELEVATED. NO PAIN OR DISCOMFORT NOTED OR REPORTED AT THIS TIME. PATIENT CALL LIGHT WITHIN REACH. SAFETY PRECAUTIONS IN PLACE. WILL CONTINUE TO MONITOR.
[2020-11-06] MEDS: PANTOPRAZOLE 40 MG TABLET.DR PO SCH (07:52)
[2020-11-06 08:10] VITALS: BP 143/63
[2020-11-06] MEDS: MULTIVIT W/MINERALS 1 TAB TABLET PO SCH (08:51)
[2020-11-06] MEDS: MEMANTINE HCL 5 MG TABLET PO SCH ×2 (08:51→17:03)
[2020-11-06] MEDS: METOPROLOL TARTRATE 25 MG TABLET PO SCH ×2 (08:53→20:57)
[2020-11-06] MEDS: DIVALPROEX SODIUM 125 MG TABLET.DR PO SCH ×2 (08:54→17:03)
[2020-11-06] MEDS: NEPRO VAN 237 ML CAN PO SCH ×2 (08:54→17:03)
--- NOTE | 2020-11-06 12:04 | NUR ---
WOUND CARE CONSULT: LIMITED ASSESSMENT AT THIS TIME DUE TO PT EATING. SWELLING NOTED TO FEET AND DISCOLORATION NOTED TO MIDBACK. PER NURSING STAFF THERE IS REDNESS/RASH TO GROIN FOLDS. RECOMMENDATIONS MADE FOR SKIN PROTECTION. DISCUSSED WITH NURSING STAFF. PT IS INDEPENDENT WITH BED MOBILITY.
--- NOTE | 2020-11-06 13:08 | NUR ---
MS RN NOTES RECEIVED NEW ORDER FOR [facility] FOR HEMODIALYSIS CATHETER PLACEMENT,ORDER CLARIFIED AND READ BACK WITH MD , NOTED AND CARRIED OUT.
[2020-11-06] MEDS ORDERED: LIDOCAINE HCL/PF 1% 30 ML VIAL IM ONE (15:00)
--- NOTE | 2020-11-06 15:00 | NUR ---
MS RN NOTES [facility] S[facility] PLACED HEMODIALYSIS CATHETER ON LEFT FEMORAL, DRESSING PLACED BY MD , NO BLEEDING NOTED. PATIENT TOLERATED WELL. WILL MONITOR. PATIENT IN STABLE CONDITION. VITAL STABLE.
--- NOTE | 2020-11-06 15:11 | NUR ---
MS/RN Non administration Medication (lidocaine) not needed by MD. Medication returned to pharmacy and handed to Meli.
[2020-11-06 15:51] VITALS: BP 123/60
[2020-11-06] MEDS: CLOTRIMAZOLE 1% 15 GM TUBE TP SCH (17:22)
--- NOTE | 2020-11-06 17:28 | NUR ---
MS RN NOTES DIALYSIS STARTED BY DIALYSIS NURSE. VITAL SIGNS STABLE. NO ACUTE DISTRESS NOTED
--- NOTE | 2020-11-06 18:51 | NUR ---
RN CLOSING NOTES PATIENT STILL IN DIALYSIS IN BED. NO ACUTE DISTRESS NOTED. VITAL SIGNS STABLE. RESPIRATIONS EVEN AND UNLABORED. NO PAIN OR DISCOMFORT NOTED AT THIS TIME. PATIENT CALL LIGHT WITHIN REACH. SAFETY PRECAUTIONS IN PLACE. WILL ENDORSE TO BRIM POUNCER NURSE FOR CONTINUITY OF CARE.
--- NOTE | 2020-11-06 19:30 | NUR ---
report recieved from que dela [facility]z. pt cooperative not pulling on lines so restraints not used today per report. restraint order to be discontinued since removed. pwill cont to monitor behavior. pt recieving dialysis.
--- NOTE | 2020-11-06 19:50 | NUR ---
hd completed 600 ml taken off. per dialysis nurse patient tolerated procedure well. possible hd again tomorrow. left groin zahra cath inspected left femoral dressing cdi.
[2020-11-06 20:00] VITALS: BP 119/54
[2020-11-06] MEDS: SENNOSIDES 8.6 MG TABLET PO SCH (20:55)
[2020-11-07] MEDS: hydrALAZINE HCL 50 MG TABLET PO SCH ×3 (05:00→21:13)
[2020-11-07] MEDS: LEVOTHYROXINE SODIUM 25 MCG TABLET GT SCH (05:17)
[2020-11-07] MEDS: PIPERACILLIN /TAZOBACTAM 2.25 G in IV D5W 50 ML IV SCH ×3 (05:25→21:24)
--- NOTE | 2020-11-07 06:10 | NUR ---
PT CLIMBED OUT OF BED DISROBED AND DISLODGED IV. NEW IV STARTED TO LEFT FA #22 PT ASSISTED BACK TO BED WILL CONT TO MONITOR. SRX2 BED ALARM ACTIVE.
[2020-11-07 06:25] LABS: BASOPHILS % (AUTO) 0.7 % (0.0-2.0); EOSINOPHILS % (AUTO) 2.9 % (0.0-6.0); HEMATOCRIT 33 % (39-51); HEMOGLOBIN 10.4 g/dL (13.5-17.5); LYMPHOCYTES # (AUTO) 0.4 /CMM (0.8-4.8); LYMPHOCYTES % (AUTO) 7.4 % (20.0-44.0); MEAN CORPUSCULAR HGB CONC 32 g/dl (31.0-36.0); MEAN CORPUSCULAR VOLUME 97 fL (80-96); MONOCYTES # (AUTO) 0.3 /CMM (0.1-1.30); MONOCYTES % (AUTO) 6.3 % (2.0-12.0); NEUTROPHILS # (AUTO) 4.2 /CMM (1.8-8.9); NEUTROPHILS % (AUTO) 82.7 % (43.0-81.0); PLATELET COUNT (AUTO) 103 /CMM (150-450); RED BLOOD CELL COUNT(AUTO) 3.34 MIL/uL (4.5-6.0); WHITE BLOOD COUNT (AUTO) 5.1 K/uL (4.3-11.0)
[2020-11-07 06:29] LABS: CALCIUM, SERUM 8.3 mg/dL (8.5-10.1); CARBON DIOXIDE 29 mmol/L (21-32); CHLORIDE 103 mmol/L (98-107); CREATININE 4.6 mg/dL (0.6-1.3); GLUCOSE 91 mg/dL (74-106); MAGNESIUM 1.9 mg/dL (1.8-2.4); PHOSPHORUS 3.3 mg/dL (2.5-4.9); POTASSIUM 3.7 mmol/L (3.5-5.1); SODIUM SERUM 140 mmol/L (136-145); UREA NITROGEN, BLOOD 41 mg/dL (7-18)
--- NOTE | 2020-11-07 06:56 | NUR ---
RN CLOSING NOTE NO ACUTE DISTRESS NOTED. RESPIRATIONS EVEN AND UNLABORED. NO PAIN OR DISCOMFORT NOTED AT THIS TIME. PATIENT CALL LIGHT WITHIN REACH. SAFETY PRECAUTIONS IN PLACE. WILL ENDORSE TO CROSSCUTTER NURSE FOR CONTINUITY OF CARE.
--- NOTE | 2020-11-07 07:20 | NUR ---
MS RN OPENING NOTE PATIENT RESTING IN BED. A/O X 1-2. ON ROOM AIR, NO RESPIRATORY DISTRESS NOTED OR REPORTED. RESPIRATIONS EVEN AND UNLABORED. NO PAIN OR DISCOMFORT NOTED OR REPORTED AT THIS TIME. PATIENT CALL LIGHT WITHIN REACH. SAFETY PRECAUTIONS IN PLACE. WILL CONTINUE TO MONITOR.
[2020-11-07] MEDS: PANTOPRAZOLE 40 MG TABLET.DR PO SCH (07:51)
[2020-11-07 08:00] VITALS: BP 119/62
--- NOTE | 2020-11-07 08:30 | NUR ---
MS RN NOTE CLARIFIED WITH PATEL, DIALYSIS NURSE, IF PATIENT WILL HAVE DIALYSIS TODAY, PER PATEL PATIENT IS ON SCHEDULE TODAY
[2020-11-07] MEDS: MEMANTINE HCL 5 MG TABLET PO SCH ×2 (08:39→16:39)
[2020-11-07] MEDS: DIVALPROEX SODIUM 125 MG TABLET.DR PO SCH ×2 (08:39→16:39)
[2020-11-07] MEDS: MULTIVIT W/MINERALS 1 TAB TABLET PO SCH (08:39)
[2020-11-07] MEDS: METOPROLOL TARTRATE 25 MG TABLET PO SCH ×2 (08:39→21:12)
[2020-11-07] MEDS: NEPRO VAN 237 ML CAN PO SCH ×2 (08:39→17:00)
--- NOTE | 2020-11-07 08:40 | NUR ---
MS RN NOTES [facility]. PATIENT FOR DIALYSIS TODAY. VITAL SIGNS STABLE
[2020-11-07] MEDS: CLOTRIMAZOLE 1% 15 GM TUBE TP SCH ×2 (09:05→16:59)
--- NOTE | 2020-11-07 09:41 | NUR ---
WOUND CARE: SECOND ATTEMPT FOR FULL SKIN ASSESSMENT. PT ADAMANTLY REFUSED. WILL SEE PRN.
--- NOTE | 2020-11-07 12:47 | NUR ---
MS RN NOTES HELD Hydralazine. PATIENT FOR DIALYSIS TODAY. VITAL SIGNS STABLE
--- NOTE | 2020-11-07 15:00 | NUR ---
MS RN NOTES DIALYSIS STARTED BY PATEL, VITAL SIGNS STABLE.
[2020-11-07 16:00] VITALS: BP 117/69
--- NOTE | 2020-11-07 16:49 | NUR ---
MS RN NOTES DIALYSIS DONE BY DIALYSIS NURSE PATEL 1 LITTER OUT , VITAL SIGNS STABLE. NO ACUTE DISTRESS NOTED. WILL CONTINUE TO MONITOR PATIENT
--- NOTE | 2020-11-07 18:38 | NUR ---
MS RN NOTES PATIENT ACCIDENTALLY PULLED OUT IV ACCESS, START NEW IV LINE ON RIGHT HAND GAUGE 20 X 1 ATTEMPT WITH GOOD BACK RETURN, SECURED WITH TRANSPARENT DRESSING SIGNED AND DATED. PATIENT TOLERATED WELL
--- NOTE | 2020-11-07 18:49 | NUR ---
MS RN CLOSING NOTES PATIENT RESTING IN BED. NO ACUTE DISTRESS NOTED. VITAL SIGNS STABLE. RESPIRATIONS EVEN AND UNLABORED. NO PAIN OR DISCOMFORT NOTED AT THIS TIME. PATIENT CALL LIGHT WITHIN REACH. SAFETY PRECAUTIONS IN PLACE. WILL ENDORSE TO WASTE MANAGEMENT ENGINEER NURSE FOR CONTINUITY OF CARE.
--- NOTE | 2020-11-07 19:15 | NUR ---
ms chloe initial notes received pt in bed awake and alert Tajik speaking only, re-oriented where he at. heplock on his right hand gauge 22 , and Jay cath on his left femoral for dialysis acces .Pt on room air no signs of any distress noted at this time. skin warm and dry to touch. kept him warm and comfortable at all times. will continue monitoring.
[2020-11-07 20:12] VITALS: BP 127/74
[2020-11-07 20:18] VITALS: BP 127/83
[2020-11-07] MEDS: SENNOSIDES 8.6 MG TABLET PO SCH (21:12)
[2020-11-08] VITALS (38 sets, daily range): BP systolic 88–141; BP diastolic 32–79
[2020-11-08] MEDS: hydrALAZINE HCL 50 MG TABLET PO SCH ×3 (05:59→21:00)
[2020-11-08] MEDS: LEVOTHYROXINE SODIUM 25 MCG TABLET GT SCH (05:59)
[2020-11-08] MEDS: PIPERACILLIN /TAZOBACTAM 2.25 G in IV D5W 50 ML IV SCH ×3 (06:01→22:37)
--- NOTE | 2020-11-08 06:50 | NUR ---
ms convertible top installer closing notes pt woke up and confusion noted and found out he pulled out his IV line even i secured with gauze last night. slept on and off like 5 hours new IV line re-inserted on his right AC gauge 20 . no signs of any distress noted. patient compliance with his medication . daily wt 104.7 without the machine that hung on the foot rails. kept him warm and comfortable at all times. will endorse to am nurse for continuity of care. bed alarm set for pt safety. endorse to am nurse for continuity of care. place call light at reach.
--- NOTE | 2020-11-08 07:45 | NUR ---
MS/RN OPENING NOTE RECEIVED PATIENT FROM FARM AGENT NURSE. PATIENT AWAKE IN HOSPITAL BED, A/0 X2 WITH EPISODES OF CONFUSION, GERMAN SPEAKING. NO ACUTE DISTRESS AT THIS TIME. PATIENT ON OXYGEN 2L VIA NASAL CANNULA, TOLERATING WELL. BREATHING EVEN NON LABORED, NO SOB NOTED. SAFETY MEASURES IN PLACE, BED LOCKED AND IN LOWEST POSITION, CALL LIGHT WITHIN REACH. WILL CONTINUE TO MONITOR AND ENSURE SAFETY.
[2020-11-08] MEDS: PANTOPRAZOLE 40 MG TABLET.DR PO SCH (08:17)
[2020-11-08] MEDS: NEPRO VAN 237 ML CAN PO SCH ×2 (08:17→16:57)
[2020-11-08] MEDS: METOPROLOL TARTRATE 25 MG TABLET PO SCH ×2 (08:17→21:00)
[2020-11-08] MEDS: DIVALPROEX SODIUM 125 MG TABLET.DR PO SCH ×2 (08:17→17:01)
[2020-11-08] MEDS: MEMANTINE HCL 5 MG TABLET PO SCH ×2 (08:17→17:01)
[2020-11-08] MEDS: MULTIVIT W/MINERALS 1 TAB TABLET PO SCH (08:17)
[2020-11-08] MEDS: CLOTRIMAZOLE 1% 15 GM TUBE TP SCH ×2 (09:42→17:02)
--- NOTE | 2020-11-08 11:31 | NUR ---
@ [address] Medina for airway protection and post cardiac arrest. intubated with 7.5 et tube secured @ 22 cm center of the lips. CO2 detector changed to yellow color + breath sounds clear bilateral post intubation. vent parameters below set as order: AC 16 VT 500 ML FIO2 100% PEEP +5 VENT PLUGGED INTO RED OUTLET WITH ALARMS ON AND FUNCTIONING. DONG @ BEDSIDE. Addendum: 11/08/20 at 1216 by TEJ HUNTLEY RT Amended: Links added.
[2020-11-08] MEDS ORDERED: EPINEPHRINE (1:10,000) SYRINGE 1 MG/10 ML DISP.SYRIN IVP ONE (11:37)
--- NOTE | 2020-11-08 11:48 | NUR ---
MS/RN NOTE DIALYSIS NURSE REPORTED TO ME, PATIENT DURING DIALYSIS HAD BP DROP TO 60S. UPON ARRIVAL I ASSESSED PATIENT. SEEN PATIENT UNRESPONSIVE WITH NO PULSE. SERGE ALVARADO WAS CALLED AT 1123. STAFF NURSES AND CHARGE NURSE ARRIVED WITH CRASH CART. I REMOVED PILLOW AND PLACED PATIENT ON BACK BOARD TO COMMENCE CPR WITH ASSISTED VENTILATION VIA BAG-VALVE MASK. CPR AND ASSISTED VENTILATION WAS INITIATED. AED DEVICE WAS PLACED. FIRST RHYTHM APPEARS PEA. SERGE ALVARADO TEAM ARRIVED TO ROOM AT 1125, RT TOOK OVER CPR AND ASSISTED VENTILATION. ER MD PRESENT AT BEDSIDE. 1127 BS 89, FIRST DOSE OF EPI GIVEN. 1131 SECOND DOSE OF EPI GIVEN, ER MD INTUBATED PATIENT, SIZE 7.5/ 22LIPLINE. 1133 PULSE PRESENT BY ICU CHARGE NURSE. PATIENT WAS TRANSFERRED TO ICU. HOSPITALIST, DR. COX AND FAMILY, NEEL NEPHEW, NOTIFIED.
[2020-11-08] MEDS ORDERED: PROPOFOL 100 ML IV PRN (12:00)
[2020-11-08] MEDS: PROPOFOL 10MG/ML 50ML 50 ML IV PRN ×2 (12:10→18:17)
[2020-11-08] MEDS: IV NS 0.9% 250 ML IV PRN (12:56)
[2020-11-08 13:26] LABS: ABG BASE EXCESS -5.1 mmol/L; ABG OXYGEN SATURATION 99.7 % (92.0-98.5); ABG PCO2 26.8 mmHg (35.0-45.0); ABG PH 7.444 (7.350-7.450); ABG PO2 584.7 mmHg (75.0-100.0); AaDO2 101.5 mmHg; COHb 1.1 % (0.5-1.5); MetHb 5.5 % (0.0-1.5); O2Hb 93.1 % (94.0-97.0); PEEP,BG 5 cm H2O; SITE, ABG Left Radial; VT, ABG 500 mL
--- NOTE | 2020-11-08 13:35 | NUR ---
fio2 decreased from 100% to 40% due to 584 mmHg. Addendum: 11/08/20 at 1335 by TEJ HUNTLEY RT Amended: Links added.
--- NOTE | 2020-11-08 13:50 | NUR ---
RN NOTE 1150: Receivedpatient post PEA and intubation from 311.With ETT 7.5/22cm, AC 16 500 100% +5. Patient noted with agitaiton and fighting the vent, obtained order for Diprivan, will start for safety and comfort. SR 60's. RAC 20, placed new PIV on LFA.Left fem HD cath intact. Placed VETERINARY TECHNICIAN ASSISTANT restraints on for safety. BP stable. 1230: S/E by Dr. Waldrop, continue POC at this time. awating Pulmo consult. 1340: Follow ABG resulted, FIO2 changed to 40% by RT.
--- NOTE | 2020-11-08 14:50 | NUR ---
MS/RN NOTE INCIDENT REPORT COMPLETED, UNIQUE ID: [id number]
[2020-11-08] MEDS ORDERED: WARFARIN SODIUM 2 MG TABLET PO SCH ×2 (17:00)
--- NOTE | 2020-11-08 17:15 | NUR ---
0 peep due to 92 / 49 BP. RN notified Addendum: 11/08/20 at 1716 by TEJ HUNTLEY RT Amended: Links added.
--- NOTE | 2020-11-08 19:49 | NUR ---
director agricultural services. initial assessment. received the pt rest on the bed. orally intubated. small dose of diprivan running. ETT 7.5,lip 22,AC 16,TV 500,FIO2 40%,PEEP 5. SAT 99. BIOLOGICAL LAB TECHNICIAN SHOWING AFIB RATE IS 37 --40S. OGT CLAMPED. FC PATENT. IV RT AND LT HAND PERIPHERAL LINE. DIPRIVAN 15MCG/KG/MIN,WILL CONTINUE TO MONITOR VITALS.
[2020-11-08] MEDS ORDERED: DOPamine 400 MG in IV D5W 250 ML IV PRN (20:30)
--- NOTE | 2020-11-08 20:38 | NUR ---
LEAD JAVASCRIPT DEVELOPER. HEART RATE IS 38. BLOOD PRESSURE 90/52. . NOTIFIED TIMBO NEW ORDER RECEIVED. DOPAMINE STARTED PER PROTOCOL.
[2020-11-08 20:41] LABS: ALANINE AMINOTRANSFERASE 63 U/L (12-78); ALBUMIN 1.6 g/dL (3.4-5.0); ALKALINE PHOSPHATASE 92 U/L (46-116); ASPARTATE AMINOTRANSFERASE 94 U/L (15-37); BILIRUBIN,TOTAL 2.2 mg/dL (0.2-1.0); CARBON DIOXIDE 22 mmol/L (21-32); CHLORIDE 99 mmol/L (98-107); CREATININE 3.3 mg/dL (0.6-1.3); GLUCOSE 105 mg/dL (74-106); MAGNESIUM 1.8 mg/dL (1.8-2.4); PHOSPHORUS 3.5 mg/dL (2.5-4.9); POTASSIUM 3.5 mmol/L (3.5-5.1); SODIUM SERUM 136 mmol/L (136-145); TOTAL PROTEIN, SERUM 4.7 g/dL (6.4-8.2); UREA NITROGEN, BLOOD 20 mg/dL (7-18)
[2020-11-08 20:43] LABS: BASOPHILS % (AUTO) 0.2 % (0.0-2.0); EOSINOPHILS % (AUTO) 0.2 % (0.0-6.0); HEMATOCRIT 27 % (39-51); LYMPHOCYTES # (AUTO) 0.4 /CMM (0.8-4.8); LYMPHOCYTES % (AUTO) 6.9 % (20.0-44.0); MEAN CORPUSCULAR HGB CONC 33 g/dl (31.0-36.0); MEAN CORPUSCULAR VOLUME 97 fL (80-96); MONOCYTES # (AUTO) 0.3 /CMM (0.1-1.30); MONOCYTES % (AUTO) 5.3 % (2.0-12.0); NEUTROPHILS # (AUTO) 4.6 /CMM (1.8-8.9); NEUTROPHILS % (AUTO) 87.4 % (43.0-81.0); RED BLOOD CELL COUNT(AUTO) 2.81 MIL/uL (4.5-6.0); WHITE BLOOD COUNT (AUTO) 5.3 K/uL (4.3-11.0)
[2020-11-08 20:56] LABS: PLATELET COUNT (AUTO) 28 /CMM (150-450)
[2020-11-08 20:59] LABS: BAND % (MANUAL) 3 % (0.0-5.0); LYMPHOCYTES % (MANUAL) 7 % (16-48); MONOCYTES % (MANUAL) 4 % (0-11.0); NEUTROPHILS % (MANUAL) 86 (42-76)
[2020-11-08 21:59] LABS: HEMATOCRIT 30 % (39-51); HEMOGLOBIN 9.7 g/dL (13.5-17.5)
[2020-11-08] MEDS ORDERED: DoBUTamine 500 MG/250 ML PIGGYBACK IV ONE (22:00)
[2020-11-08 22:02] LABS: MEAN CORPUSCULAR HGB CONC 32 g/dl (31.0-36.0); MEAN CORPUSCULAR VOLUME 98 fL (80-96); WHITE BLOOD COUNT (AUTO) 5.7 K/uL (4.3-11.0)
[2020-11-08 22:10] LABS: PLATELET COUNT (AUTO) 29 /CMM (150-450)
[2020-11-08] MEDS: SENNOSIDES 8.6 MG TABLET PO SCH (22:37)
[2020-11-08] MEDS ORDERED: DOBUTamine 12.5 MG/ML VIAL IV ONE (22:44)
[2020-11-09] VITALS (98 sets, daily range): BP systolic 76–145; BP diastolic 30–81
--- NOTE | 2020-11-09 | NUR ---
curriculum manager. dobutamine started 11/08/20 at 2200. unable to find spread sheet.
[2020-11-09] MEDS: PROPOFOL 10MG/ML 50ML 50 ML IV PRN ×3 (00:01→17:03)
--- NOTE | 2020-11-09 01:20 | NUR ---
CORRUGATED FASTENER DRIVER. BLOOD PRESSURE WENT DOWN 77/50. NOTIFIED MD IZQUIERDO. NEW ORDER RECEIVED,
[2020-11-09] MEDS ORDERED: DoBUTamine 500 MG/250 ML PIGGYBACK IV SCH (02:00)
[2020-11-09] MEDS ORDERED: NOREPINEPHRINE 4 MG/4 ML AMPUL IV ONE (02:09)
[2020-11-09] MEDS: NOREPINEPHRINE 32 MG in IV NS 0.9% 218 ML IV PRN ×2 (02:19→21:14)
--- NOTE | 2020-11-09 03:13 | NUR ---
PAVER INSTALLER, AM CARE GIVEN. LINEN CHANGED. REMAINING SAME VENT SETTINGS TOLERATED WELL. SAT 100%. NO ACUTE DISTRESS NOTED, IMPLEMENTATION ENGINEER SHOWING AFIB CONTROLLED. HOB ELEVATED, OGT CLAMPED, AFEBRILE, FC PATENT. IV RT FEMORAL HD WITH PICC TALE, LEVOPHED 0.1MCG/KG/MIN, DIPRIVAN 20MCG/KG/MIN. TURN AND REPOSITION Q2H. WILL CONTINUE TO MONITOR VITALS.
[2020-11-09 04:33] LABS: BASOPHILS % (AUTO) 0.2 % (0.0-2.0); EOSINOPHILS % (AUTO) 0.3 % (0.0-6.0); HEMATOCRIT 30 % (39-51); HEMOGLOBIN 9.9 g/dL (13.5-17.5); LYMPHOCYTES # (AUTO) 0.3 /CMM (0.8-4.8); LYMPHOCYTES % (AUTO) 6.4 % (20.0-44.0); MEAN CORPUSCULAR HGB CONC 33 g/dl (31.0-36.0); MEAN CORPUSCULAR VOLUME 97 fL (80-96); MONOCYTES # (AUTO) 0.2 /CMM (0.1-1.30); NEUTROPHILS # (AUTO) 4.7 /CMM (1.8-8.9); NEUTROPHILS % (AUTO) 89.1 % (43.0-81.0); RED BLOOD CELL COUNT(AUTO) 3.14 MIL/uL (4.5-6.0); WHITE BLOOD COUNT (AUTO) 5.3 K/uL (4.3-11.0)
[2020-11-09 04:49] LABS: PLATELET COUNT (AUTO) 34 /CMM (150-450)
[2020-11-09 04:54] LABS: ALANINE AMINOTRANSFERASE 68 U/L (12-78); ALBUMIN 1.6 g/dL (3.4-5.0); ALKALINE PHOSPHATASE 94 U/L (46-116); ASPARTATE AMINOTRANSFERASE 109 U/L (15-37); BILIRUBIN,TOTAL 2.2 mg/dL (0.2-1.0); CALCIUM, SERUM 8.2 mg/dL (8.5-10.1); CARBON DIOXIDE 23 mmol/L (21-32); CHLORIDE 100 mmol/L (98-107); CREATININE 3.4 mg/dL (0.6-1.3); GLUCOSE 110 mg/dL (74-106); MAGNESIUM 1.8 mg/dL (1.8-2.4); PHOSPHORUS 3.5 mg/dL (2.5-4.9); POTASSIUM 3.4 mmol/L (3.5-5.1); SODIUM SERUM 135 mmol/L (136-145); UREA NITROGEN, BLOOD 22 mg/dL (7-18)
[2020-11-09] MEDS: hydrALAZINE HCL 50 MG TABLET PO SCH (05:00)
[2020-11-09] MEDS: LEVOTHYROXINE SODIUM 25 MCG TABLET GT SCH (05:33)
[2020-11-09] MEDS: PIPERACILLIN /TAZOBACTAM 2.25 G in IV D5W 50 ML IV SCH ×3 (05:33→21:30)
[2020-11-09 05:57] LABS: LYMPHOCYTES % (MANUAL) 8 % (16-48); MONOCYTES % (MANUAL) 5 % (0-11.0); NEUTROPHILS % (MANUAL) 87 (42-76)
[2020-11-09] MEDS: DOBUTamine 500 MG in IV D5W 210 ML IV PRN (06:52)
[2020-11-09 07:01] LABS: ABG BASE EXCESS -1.7 mmol/L; ABG PCO2 23.9 mmHg (35.0-45.0); ABG PH 7.535 (7.350-7.450); ABG PO2 161.8 mmHg (75.0-100.0); AaDO2 95.9 mmHg; COHb 1.2 % (0.5-1.5); MetHb 0.9 % (0.0-1.5); O2Hb 96.9 % (94.0-97.0); SITE, ABG Right Radial; VENT MODE, BG AC 16 500 +5 40%
--- NOTE | 2020-11-09 07:44 | NUR ---
RN OPENING NOTES RECEIVED PT SEDATED AND ORALLY INTUBATED. MECHVENT SETTINGS AC16 FIO2 40% PEEP5. OGT CLAMPED. CASTRO IN PLACE. LEFT FEMORAL HD CATHETER INTACT WITH DOBUTAMINE 5MCG AND LEVOPHED 0.1MCG. RAC G20 NOT USED, AND LFA G20 WITH PROPOFOL 20MCG AND NS TKO. MEPILEX ON BOTH ARMS. APPEARS COMFORTABLE AT THIS TIME. SAFETY CHECKS IN PLACE. WILL CONTINUE TO MONITOR.
[2020-11-09] MEDS: MULTIVIT W/MINERALS 1 TAB TABLET PO SCH (08:10)
[2020-11-09] MEDS: PANTOPRAZOLE 40 MG TABLET.DR PO SCH (08:10)
[2020-11-09] MEDS: MEMANTINE HCL 5 MG TABLET PO SCH ×2 (08:10→16:21)
[2020-11-09] MEDS: DIVALPROEX SODIUM 125 MG TABLET.DR PO SCH ×2 (08:10→16:20)
[2020-11-09] MEDS: CLOTRIMAZOLE 1% 15 GM TUBE TP SCH ×2 (08:11→16:21)
[2020-11-09] MEDS: NEPRO VAN 237 ML CAN PO SCH ×2 (08:11→16:21)
[2020-11-09] MEDS: METOPROLOL TARTRATE 25 MG TABLET PO SCH (08:11)
--- NOTE | 2020-11-09 08:13 | NUR ---
RN NOTES WITHHOLD LOPRESSOR AND HYDRALAZINE PER DR RIVERA.
[2020-11-09] MEDS ORDERED: IV NS 0.9% 1,000 ML IV PRN (09:00)
--- NOTE | 2020-11-09 09:45 | NUR ---
RN NOTES CRITICAL LAB RESULT RECEIVED FOR TROPONIN 0.708. DR RIVERA NOTIFIED. NO NEW ORDERS AT THIS TIME.
--- NOTE | 2020-11-09 10:38 | NUR ---
RN NOTES PHARMACY CALLED RE K=3.4 AND IF REPLACEMENT WAS NECESSARY. DR COX WAS NOTIFIED BY RN AND DR COX SAID NO REPLACEMENT AT THIS TIME.
[2020-11-09] MEDS ORDERED: PHYTONADIONE INJ 10 MG/1 ML AMPUL SQ ONE (16:00)
[2020-11-09] MEDS ORDERED: ACETAMINOPHEN 325 MG TABLET PO ONE (16:00)
[2020-11-09] MEDS ORDERED: diphenhydrAMINE HCL 50 MG/ML VIAL IV ONE (16:00)
--- NOTE | 2020-11-09 16:00 | NUR ---
RN NOTES PICC LINE PLACED BY KARIME LEPE AT THE [facility]. MAY USE PICC LINE NOW AND NO NEED FOR CONFIRMATORY XRAY PER SHERLEY. BLEEDING NOTED AT THE SITE AND PRESSURE APPLIED.
[2020-11-09 17:02] LABS: D-DIMER 4.31 mg/L(FEU (0.17-0.50)
[2020-11-09 17:08] LABS: IRON, SERUM 61 ug/dl (50-175); TOTAL IRON BINDING CAPACITY 213 ug/dl (250-450)
[2020-11-09 17:23] LABS: FERRITIN 277 ng/mL (8-388)
--- NOTE | 2020-11-09 18:38 | NUR ---
RN CLOSING NOTES PATIENT REMAINS SEDATED AND INTUBATED. ATTEMPTS AT SEDATION VACATION UNSUCCESSFUL DUE TO PATIENT MANIFESTING TACHYPNEA, TACHYCARDIA, AND RESTLESSNESS, UNABLE TO FOLLOW COMMANDS. MECHVENT SETTINGS AT AC 16, TV 450, FIO2 40%, PEEP 0. SR WITH OCCASIONAL PVC'S ON TELE MONITOR. OGT CLAMPED. CASTRO DRAINING VERY MINIMAL. LEFT FEMORAL HD CATH IN PLACE WITH LEVO AT 0.15MCG, DOBUTAMINE AT 5MCG. LEFT FA G#[address] RIO PICC IN PLACE WITH PROPOFOL AT 5MCG AND N/S TKO IN PREPARATION FOR FFP TRANSFUSION. PICC INSERTION SITE BLEEDING NOTED, PRESSURE CONTINUED PER KARIME LEPE. APPEARS COMFORTABLE AT THIS TIME. SAFETY CHECKS IN PLACE. WILL ENDORSE TO NIGHT RN FOR CONTINUITY OF CARE..
--- NOTE | 2020-11-09 19:00 | NUR ---
Received patient orally intubated on AC mode,on mildly sedated on propofol drip, breathing regular and non labored,+ strong cough and gAg grimaces and withdraws to pain.On Dobutamine drip,Levophed drip.HD cath.(trialysis) @ left femoral area, PICC line @ RIO with bleeding noted around insertion site (patient's iNR 3.2),will transfuse 2 units FFP tonight once available.OGT clamped. Comfort care done , closely monitor for any bleeding.
--- NOTE | 2020-11-09 19:31 | NUR ---
RECEIVED PT ORALLY INTUBATED WITH 7.5 ETT SECURED AT 22 CM LIP LINE ON VENT WITH THE SETTINGS OF AC 16, VT 450, FIO2 40%. SX'D DONE. VENT ALARMS SET AND AUDIBLE. ETT CUFF CHECKED. VENT PLUGGED INTO RED OUTLET. WILL CONTINUE TO MONITOR PT T/O SHIFT.
--- NOTE | 2020-11-09 20:00 | NUR ---
Hypothermic ( temp. 91 F ), warmer applied (Kirt Hugger).
--- NOTE | 2020-11-09 20:37 | NUR ---
1st of 2 units FFP started.Premedicated with Benadryl and Tylenol.
[2020-11-09] MEDS: SENNOSIDES 8.6 MG TABLET PO SCH (22:13)
--- NOTE | 2020-11-09 22:26 | NUR ---
2nd unit FFP started.
--- NOTE | 2020-11-09 23:33 | NUR ---
2nd unit FFP transfusion completed.Tolerated transfusion with no reaction.
[2020-11-10] VITALS (91 sets, daily range): BP systolic 82–143; BP diastolic 14–84
--- NOTE | 2020-11-10 | NUR ---
Remains mildly sedated,responds to pain.Still Afib ,rate controlled, with frequent PVC's,couplets,multifocal PVC's.
[2020-11-10] MEDS: IV NS 0.9% 250 ML IV PRN (02:16)
--- NOTE | 2020-11-10 04:00 | NUR ---
Now Normothermic Temp-97.8. Kirt Hugger/warmer turned off.
[2020-11-10 04:31] LABS: BASOPHILS % (AUTO) 0.3 % (0.0-2.0); EOSINOPHILS % (AUTO) 0.9 % (0.0-6.0); HEMATOCRIT 27 % (39-51); HEMOGLOBIN 8.8 g/dL (13.5-17.5); LYMPHOCYTES # (AUTO) 0.3 /CMM (0.8-4.8); LYMPHOCYTES % (AUTO) 4.2 % (20.0-44.0); MEAN CORPUSCULAR HGB CONC 32 g/dl (31.0-36.0); MEAN CORPUSCULAR VOLUME 97 fL (80-96); MONOCYTES # (AUTO) 0.3 /CMM (0.1-1.30); MONOCYTES % (AUTO) 4.3 % (2.0-12.0); NEUTROPHILS % (AUTO) 90.3 % (43.0-81.0); WHITE BLOOD COUNT (AUTO) 6.6 K/uL (4.3-11.0)
[2020-11-10 04:37] LABS: PLATELET COUNT (AUTO) 49 /CMM (150-450)
[2020-11-10 04:44] LABS: ALANINE AMINOTRANSFERASE 61 U/L (12-78); ALBUMIN 1.7 g/dL (3.4-5.0); ALKALINE PHOSPHATASE 84 U/L (46-116); ASPARTATE AMINOTRANSFERASE 84 U/L (15-37); CALCIUM, SERUM 8.3 mg/dL (8.5-10.1); CARBON DIOXIDE 24 mmol/L (21-32); CHLORIDE 99 mmol/L (98-107); CREATININE 3.9 mg/dL (0.6-1.3); GLUCOSE 53 mg/dL (74-106); MAGNESIUM 1.8 mg/dL (1.8-2.4); PHOSPHORUS 3.6 mg/dL (2.5-4.9); POTASSIUM 3.1 mmol/L (3.5-5.1); SODIUM SERUM 135 mmol/L (136-145); TOTAL PROTEIN, SERUM 5.1 g/dL (6.4-8.2); UREA NITROGEN, BLOOD 25 mg/dL (7-18)
[2020-11-10] MEDS: DOBUTamine 500 MG in IV D5W 210 ML IV PRN (04:57)
--- NOTE | 2020-11-10 05:00 | NUR ---
Status unchanged,still on Levophed and Dobutamine drip,still sedated on Propofol .Observed to have more frequent PVC's,couplets and occasionally triplets.PICC line site still with bleeding.
[2020-11-10] MEDS: PIPERACILLIN /TAZOBACTAM 2.25 G in IV D5W 50 ML IV SCH ×3 (05:01→21:00)
[2020-11-10] MEDS: PROPOFOL 10MG/ML 50ML 50 ML IV PRN (05:07)
[2020-11-10] MEDS: LEVOTHYROXINE SODIUM 25 MCG TABLET GT SCH (05:31)
[2020-11-10 05:45] LABS: EOSINOPHILS % (MANUAL) 2 % (0-4); LYMPHOCYTES % (MANUAL) 5 % (16-48); METAMYELOCYTES % 1 % (0-0); MONOCYTES % (MANUAL) 3 % (0-11.0); NEUTROPHILS % (MANUAL) 89 (42-76)
--- NOTE | 2020-11-10 05:45 | NUR ---
Contacted electron beam operator ,Nitesh Merida responded,referred Troponin-1.4,K+ of 3.1 and Finger stick of 50.With some orders.
[2020-11-10] MEDS ORDERED: DEXTROSE 50%-WATER 50 ML DISP.SYRIN IVP PRN (06:00)
[2020-11-10] MEDS: POTASSIUM CL. PREMIX PERIPHER. 50 ML IV SCH ×4 (06:26→09:49)
--- NOTE | 2020-11-10 07:00 | NUR ---
Report given to Melia SCHAFFER.
--- NOTE | 2020-11-10 07:00 | NUR ---
Repeat YG=095 after 1 amp of D50 was given. First kCL bag replacement started (total of 40 meq.)
--- NOTE | 2020-11-10 08:00 | NUR ---
rn notes RECEIVED PATIENT ON EET VENT SETTING, TOLERATED WELL, EET-7.5, FIO2-40, AND PEEP 0. PATIENT CALM, AND COOPERATIVE, FOLLOWING COMMAND . BEDSIDE MONITOR SHOWING ST-100 HR. NO ACUTE RESPIRATORY DISTRESS. OGT INTACT. PATIENT HAS EDEMA BOTH ARMS, AND BILATERAL LOWER LEGS ELEVATED USING PILLOWS. DVT PUMP ON, PICC LINE ON RIGHT UPPER ARM, PATIENT PLATELET IS LOW 41, PRONE TO BLEED, AND UNABLE TO CHANGE DRESSING. SEEN WOUND NURSE PATIENT HAS DISCOLORATION BOTH ARMS, AND BACK, ASSIST TURN AND REPOSTION Q 2HR, ISOFLEX BED ON. CASTRO CATHETER INTACT BUT NO OUTPUT AT THIS TIME. INFUSING DIPRIVAN 10MCG/KG/HR, LEVOPHED 0.3MCG/KG/HR, KCL 10, AND DOBUTAMINE 5MCG/KG/HR. KEEP HOB ELEVATED. WILL MONITORING.
[2020-11-10 08:06] LABS: *ANA ANTI-CENTROMERE B AB <0.2 AI (0.0-0.9); *ANA ANTI-DNA(DS) AB, QN 3 IU/mL (0-9); *ANA ANTI-JO-1 <0.2 AI (0.0-0.9); *ANA ANTICHROMATIN ANTIBODY <0.2 AI (0.0-0.9); *ANA RNP ANTIBODIES <0.2 AI (0.0-0.9); *ANA SJOGREN'S ANTI-SS-A 0.2 AI (0.0-0.9); *ANA SJOGREN'S ANTI-SS-B <0.2 AI (0.0-0.9); *ANAANTI-SCLERODERMA-70 AB <0.2 AI (0.0-0.9); *ANASMITH AB <0.2 AI (0.0-0.9); *SPE A/G RATIO 0.8 (0.7-1.7); *SPE ALBUMIN 2.1 g/dL (2.9-4.4); *SPE ALPHA-1-GLOBULIN 0.3 g/dL (0.0-0.4); *SPE ALPHA-2-GLOBULIN 0.4 g/dL (0.4-1.0); *SPE BETA GLOBULIN 0.7 g/dL (0.7-1.3); *SPE GLOBULIN, TOTAL 2.6 g/dL (2.2-3.9); *SPE M-SPIKE Not Observed g/dL (Not Observed); *SPEGAMMA GLOBULIN 1.2 g/dL (0.4-1.8); IMMUNOGLOBULIN A, SERUM 334 mg/dL (61-437); IMMUNOGLOBULIN G, SERUM 1294 mg/dL (603-1613); IMMUNOGLOBULIN M, SERUM 81 mg/dL (15-143)
--- NOTE | 2020-11-10 08:18 | NUR ---
WOUND CARE CONSULT: PT PRESENTS WITH MULTIPLE SKIN ISSUES WHICH WERE PRESENT ON ADMISSION INCLUDING LEFT KNEE DRY SCAB, RASH TO GROIN AREAS, AREAS OF DISCOLORATION TO BACK, ARMS AND FEET. SKIN TEAR NOTED TO RT ARM. EDEMA NOTED TO ARMS. ARMS ARE ELEVATED ON PILLOWS. RECOMMENDATIONS MADE FOR SKIN PROTECTION. DISCUSSED WITH NURSING STAFF. PT IS ON GASTON ISOFLEX LOW AIRLOSS BED. PT IS CURRENTLY INTUBATED. IN AGREEMENT WITH PLAN OF CARE. Addendum: 11/10/20 at 0821 by JOSE WILKINS WNDNU Amended: Links added.
[2020-11-10] MEDS: IV D5/ 0.9% NACL 1,000 ML IV PRN ×2 (08:32→18:09)
[2020-11-10] MEDS: DIVALPROEX SODIUM 125 MG TABLET.DR PO SCH (08:50)
[2020-11-10] MEDS: PANTOPRAZOLE 40 MG TABLET.DR PO SCH (08:50)
[2020-11-10] MEDS: MEMANTINE HCL 5 MG TABLET PO SCH ×2 (08:51→18:10)
[2020-11-10] MEDS: MULTIVIT W/MINERALS 1 TAB TABLET PO SCH (08:51)
[2020-11-10] MEDS: CLOTRIMAZOLE 1% 15 GM TUBE TP SCH ×2 (08:51→18:10)
[2020-11-10] MEDS: NEPRO VAN 237 ML CAN PO SCH (09:00)
--- NOTE | 2020-11-10 09:02 | NUR ---
RN NOTES get to order via Dr Ann start simv weaning. SIMV 4, pressure 15, peep -5 and ABG after 1 hr started SIMV. RT notified. Titrated Diprivan 5 mcg/kg/hr per protocol.
--- NOTE | 2020-11-10 09:40 | NUR ---
rn notes get order via Dr Phelan start CVP, and hemodynamic monitoring Q4HR, order taken and carried out, CVP is 4, MD notified.
--- NOTE | 2020-11-10 10:10 | NUR ---
RN NOTES PATIENT AWAKE, FOLLOWING DIRECTION NO ACUTE RESPIRATORY DISTRESS, ALSO STARTED D5NS AT 100 ML/HR VIA Dr CALL ORDER.
--- NOTE | 2020-11-10 10:45 | NUR ---
RN NOTES ABG DONE PH-7.4, PCO2- 28.2, PO2-137.7, HCO3- 20.2. WAITING Dr LEONE. PATIENT FOLLOW COMMAND, SUCTION, BILATERAL SOFT RESTRAIN ON, RECHECKED CIRCULATION Q 2 HR. EDUCATED PATIENT TAKE A DEEP BREATHING TECHNIC. NOTICED PATIENT HAS BLEEDING FROM CASTRO NOTIFIED RN FAMILY Dr. PLEITEZ.
[2020-11-10 10:47] LABS: ABG BASE EXCESS -2.5 mmol/L; ABG OXYGEN SATURATION 98.5 % (92.0-98.5); ABG PCO2 28.2 mmHg (35.0-45.0); ABG PH 7.474 (7.350-7.450); ABG PO2 137.7 mmHg (75.0-100.0); AaDO2 115.1 mmHg; COHb 0.8 % (0.5-1.5); MetHb 0.8 % (0.0-1.5); O2Hb 96.9 % (94.0-97.0); SITE, ABG Left Radial; VENT MODE, BG SIMV 4 450 40% +5 PS 15
[2020-11-10] MEDS: NOREPINEPHRINE 32 MG in IV NS 0.9% 218 ML IV PRN (11:02)
--- NOTE | 2020-11-10 11:09 | NUR ---
RN NOTES REPORTED ABG RESULT TO THE Dr CHENG AND GET ORDER LEAVE SIMV SETTING SAME 4, PEEP-5, PRESSURE SETTING 15. RT AWARE OF.
--- NOTE | 2020-11-10 13:23 | NUR ---
rn notes Seen patient via hospitalist Dr Rivera, and get TO order As soon as medically feasible, recommend Nepro at 15ml/hr and advance as tolerated to 35ml/hr x 24 hrs goal rate. TF will provide (1512 kcal, 68 gram protein) Will continue to follow up and adjust nutrition recommendations accordingly also hospitalist aware of bleeding from Laureano catheter. will follow lab values, PT/INR, DIC panel.
--- NOTE | 2020-11-10 14:04 | NUR ---
rn notes get lab call for critical lab values plt -46. hospitalist notified.
[2020-11-10 15:26] LABS: D-DIMER 3.9 mg/L(FEU (0.17-0.50)
--- NOTE | 2020-11-10 15:45 | NUR ---
RECEIVED PATIENT ON VENT SETTINGS OF AC 16, VT 450, FIO2 40%, PEEP 0. HAS ETT 7.5 @ 22CM LIP. AIRWAY PATENT AND SECURE. NO RESPIRATORY DISTRESS NOTED. CHANGED VENT SETTINGS TO SIMV 4 , VT 450, FIO2 40%, PS 15, PEEP 5 PER DOCTORS ORDERS. PATIENT SLOWLY WAKING UP. ALERT AND SOMEWHAT RESPONSIVE. ALARMS SET AND AUDIBLE. AMBU BAG AT THE BEDSIDE. VENT PLUGGED INTO RED OUTLET.
--- NOTE | 2020-11-10 15:54 | NUR ---
RN NOTES ROE ORDER VIA CINDER MAN PLATFORM MATERIAL HANDLING SUPERVISOR GET ORDER PLATELET INFUSION I UNIT, CALLED LAB FOR READINESS PLATEMAKER.
[2020-11-10] MEDS ORDERED: diphenhydrAMINE HCL 50 MG/ML VIAL IV ONE (16:00)
[2020-11-10] MEDS ORDERED: ACETAMINOPHEN 325 MG TABLET PO ONE (16:00)
[2020-11-10] MEDS: NEPRO 1,000 ML BOTTLE GT SCH (18:12)
[2020-11-10] MEDS: DIVALPROEX SODIUM 125 MG CAP.SPRINK PO SCH (18:27)
--- NOTE | 2020-11-10 18:30 | NUR ---
RN NOTES PATIENT ON SIMV VENTILATION, AWAKE, NO SEDATION, STARTED OGT FEEDING NEPRO 15CC/HR, NO RESIDUAL. PATIENT WILLING TO GET PLATELET TRANSFUSION, PER BLOOD BANK PLATELET WILL COME FROM [facility], AND NOT [facility]. 1600 MEDICATION NOT ADMINISTERED BECAUSE OF WILLING ADMINISTER BEFORE TRANSFUSION. RN, AND CHARGE NURSE AWARE OF. INFUSING LEVOPHED 0.2 MCG/KG/HR, D5NS AT100 ML/HR, AND DOBUTAMINE 5 MCG/KG/HR NO TITRATE X5DAYS, ON RIGHT PICC LINE , STILL BLEEDING, CASTRO HAS 10CC OF OUTPUT, UNABLE TO COLLECT UA, ALSO BLOODY. ASSIST TURN AND REPOSTION Q2 HR, RECHECKED RESTRAIN FOR SAFETY. ENDORSED ONCOMING NURSE FOLLOW PLAN OF CARE.
--- NOTE | 2020-11-10 19:14 | NUR ---
CLINICAL EDUCATION MANAGER OPENING NOTES: Rec'd pt in bed, intubated 7.5/22cm at the lip, on SIMV mode tolerating settings well. Pt able to open eyes. A-fib on tele monitor. OGT in place w/ Nepro infusing at 20ml/hr, tolerating feeding well. CVP in place. RIO PICC and left femoral dialysis cath in place patent with Levo infusing at0.2mcg/kg , Dobutamine at 5mcg/kg, and D5NS at 100ml/hr. Laureano catheter in place. Safety measures in place. Will continue to monitor.
[2020-11-10] MEDS: SENNOSIDES 8.6 MG TABLET PO SCH (21:13)
[2020-11-11] VITALS (96 sets, daily range): BP systolic 52–156; BP diastolic 31–95
--- NOTE | 2020-11-11 00:13 | NUR ---
BAGGAGE INSPECTOR NOTE: Pt's rectal temp noted to be 94.0. Kirt hugger placed back on pt.
--- NOTE | 2020-11-11 00:31 | NUR ---
NETWORK SUPPORT NOTE: Pt noted w/ no residual, increased TF to 30ml/hr. Will continue to monitor.
--- NOTE | 2020-11-11 02:10 | NUR ---
Received call @ 0210 that pt had self extubate. On arrival pt was being ventilated via ambu bag with adequate oxygenation. Pt was awake/alert and showed no sings of resp distress or sob. ABG done per md orders to decide if pt should be reintubated. ABG results given to md and no new orders given. Pt placed on NRB @ 15L. Continue current care plan and monitor for any changes. Addendum: 11/11/20 at 0248 by MANI DE ANDA RT Amended: Links added.
--- NOTE | 2020-11-11 02:10 | NUR ---
Received call @0210 that pt had self extubated. On arrival pt was being ventilated via NRB. Addendum: 11/11/20 at 0414 by MANI DE ANDA RT Double note. Ignore this note.
--- NOTE | 2020-11-11 02:50 | NUR ---
TRANSITION MGR NOTE: 0210: Pt self extubated while cleaning pt for bath. RT paged stat ventilating pt. Charge nurse at bedside. Pt A&Ox1-2, no resp distress noted, O2 sat WNL. Pt placed on 15LPM NRB mask. on call pharmacy technician, Dr. Nitesh Merida paged w/ orders for stat abg, updated RT. 0234: ABG results relayed to Dr. Merida w/ NNO at this time. Will continue to monitor.
--- NOTE | 2020-11-11 03:20 | NUR ---
PIPE WRAPPING MACHINE OPERATOR NOTE: Called lab and spoke w/ Demi in regards to 1unit of platelets. Per Demi, platelets have not come in from [facility] yet. Stated she will f/u with them. Addendum: 11/11/20 at 0322 by ELDA LOPEZ RN Demi from lab called back and stated that platelets will arrive by morning shift. Charge nurse also aware.
[2020-11-11 04:11] LABS: ABG BASE EXCESS -5.6 mmol/L; ABG OXYGEN SATURATION 99.9 % (92.0-98.5); ABG PCO2 32.5 mmHg (35.0-45.0); ABG PH 7.381 (7.350-7.450); ABG PO2 432.1 mmHg (75.0-100.0); AaDO2 248.4 mmHg; COHb 1.2 % (0.5-1.5); MetHb 0.6 % (0.0-1.5); O2Hb 98.1 % (94.0-97.0); SITE, ABG Right Radial; VENT MODE, BG NRB 15 L
[2020-11-11] MEDS: IV NS 0.9% 250 ML IV PRN (04:18)
[2020-11-11] MEDS: IV D5/ 0.9% NACL 1,000 ML IV PRN ×2 (04:26→14:46)
[2020-11-11 04:39] LABS: BASOPHILS # (AUTO) 0.1 /CMM (0.0-0.2); BASOPHILS % (AUTO) 0.9 % (0.0-2.0); EOSINOPHILS % (AUTO) 1.1 % (0.0-6.0); HEMATOCRIT 23 % (39-51); HEMOGLOBIN 7.5 g/dL (13.5-17.5); LYMPHOCYTES # (AUTO) 0.3 /CMM (0.8-4.8); MEAN CORPUSCULAR HGB CONC 33 g/dl (31.0-36.0); MEAN CORPUSCULAR VOLUME 99 fL (80-96); MONOCYTES # (AUTO) 0.2 /CMM (0.1-1.30); MONOCYTES % (AUTO) 3.5 % (2.0-12.0); NEUTROPHILS # (AUTO) 6.2 /CMM (1.8-8.9); NEUTROPHILS % (AUTO) 89.5 % (43.0-81.0); RED BLOOD CELL COUNT(AUTO) 2.34 MIL/uL (4.5-6.0)
[2020-11-11 05:04] LABS: ALANINE AMINOTRANSFERASE 52 U/L (12-78); ALKALINE PHOSPHATASE 77 U/L (46-116); ASPARTATE AMINOTRANSFERASE 72 U/L (15-37); BILIRUBIN,TOTAL 1.5 mg/dL (0.2-1.0); CALCIUM, SERUM 7.8 mg/dL (8.5-10.1); CARBON DIOXIDE 23 mmol/L (21-32); CHLORIDE 102 mmol/L (98-107); CREATININE 4.4 mg/dL (0.6-1.3); GLUCOSE 76 mg/dL (74-106); MAGNESIUM 1.7 mg/dL (1.8-2.4); PHOSPHORUS 3.5 mg/dL (2.5-4.9); POTASSIUM 3.4 mmol/L (3.5-5.1); SODIUM SERUM 136 mmol/L (136-145); TOTAL PROTEIN, SERUM 4.5 g/dL (6.4-8.2); UREA NITROGEN, BLOOD 28 mg/dL (7-18)
[2020-11-11 05:11] LABS: ALBUMIN 1.4 g/dL (3.4-5.0)
[2020-11-11] MEDS: PIPERACILLIN /TAZOBACTAM 2.25 G in IV D5W 50 ML IV SCH ×3 (05:28→20:24)
[2020-11-11] MEDS: LEVOTHYROXINE SODIUM 25 MCG TABLET GT SCH (05:29)
--- NOTE | 2020-11-11 05:29 | NUR ---
VENETIAN BLIND MAKER NOTE: Pt's 0600 Synthroid nonadministered as pt no longer has OGT and is too confused/altered to attempt a swallow eval and admin medication
[2020-11-11 05:34] LABS: PLATELET COUNT (AUTO) 42 /CMM (150-450)
[2020-11-11 05:41] LABS: D-DIMER 2.67 mg/L(FEU (0.17-0.50)
[2020-11-11] MEDS ORDERED: diphenhydrAMINE HCL 50 MG/ML VIAL ONE ×2 (06:26→20:11)
--- NOTE | 2020-11-11 06:28 | NUR ---
AUTOMATIC BEAM WARPER TENDER NOTE: Pt's Tylenol x1 prior to transfusion order not administered as pt is unable to swallow at this time. Charge nurse aware.
[2020-11-11 06:30] LABS: BAND % (MANUAL) 2 % (0.0-5.0); LYMPHOCYTES % (MANUAL) 3 % (16-48); MONOCYTES % (MANUAL) 3 % (0-11.0); NEUTROPHILS % (MANUAL) 92 (42-76)
--- NOTE | 2020-11-11 06:41 | NUR ---
CASE MANAGEMENT MANAGER NOTE: Administered IV Benadryl and began taking vitals prior to picking up platelets. Unable to get temp on pt, placed back on lachelle hugger. Pt's BP dropped to SBP 50s. Titrating Levo per protocol. Lab called and made aware, charge nurse also aware. Will continue to monitor.
[2020-11-11] MEDS: DOBUTamine 500 MG in IV D5W 210 ML IV PRN (06:57)
[2020-11-11] MEDS: PANTOPRAZOLE 40 MG TABLET.DR PO SCH (07:30)
--- NOTE | 2020-11-11 08:00 | NUR ---
RN note: Pt received alert awake oriented to name. Eyes open spontaneously. On non-rebreather O2 15L, tolerating well. No respiratory distress noted. Aspiration precautions observed. Iv lines are intact, running Iv fluids & cardiac drips as ordered, please see flow- sheets for details. Safety measures observed. F/C intact, anuric. Continue to monitor closely.
[2020-11-11 08:33] LABS: ABG BASE EXCESS -8.3 mmol/L; ABG OXYGEN SATURATION 98.9 % (92.0-98.5); ABG PCO2 34.2 mmHg (35.0-45.0); ABG PH 7.316 (7.350-7.450); ABG PO2 164.4 mmHg (75.0-100.0); AaDO2 406.2 mmHg; COHb 0.8 % (0.5-1.5); MetHb 0.5 % (0.0-1.5); O2Hb 97.6 % (94.0-97.0); SITE, ABG Right Radial; VENT MODE, BG NRB MASK 85%
[2020-11-11] MEDS: MULTIVIT W/MINERALS 1 TAB TABLET PO SCH (09:00)
[2020-11-11] MEDS: MEMANTINE HCL 5 MG TABLET PO SCH ×2 (09:00→17:00)
[2020-11-11] MEDS: DIVALPROEX SODIUM 125 MG CAP.SPRINK PO SCH ×2 (09:00→17:00)
[2020-11-11] MEDS: CLOTRIMAZOLE 1% 15 GM TUBE TP SCH ×2 (09:33→17:00)
[2020-11-11] MEDS: NOREPINEPHRINE 32 MG in IV NS 0.9% 218 ML IV PRN ×2 (10:59→20:07)
--- NOTE | 2020-11-11 11:00 | NUR ---
RN note: S/P Platelets transfusion, tolerated well. Noted small brownish vomit. Dr. Waldrop notified at bedside. Orders to intubate. RT & credit charge authorizer made aware.
--- NOTE | 2020-11-11 11:25 | NUR ---
RT PATIENT ORALLY INTUBATED BY DR KANG WITH A 7.5 ETT SECURED AT 25CM LIP. BILAT CHEST RISE NOTED, BILAT B/S, PLACED ON [facility] VENT WITH PREVIOUS VENT SETTING PER DR WILLIAM. ALARMS CHECKED + AUDIBLE. ALIZAU BAG AT HOB. Addendum: 11/11/20 at 1153 by SHELIA BELTRAN RT Amended: Links added.
[2020-11-11] MEDS: PROPOFOL 10MG/ML 50ML 50 ML IV PRN ×2 (11:49→23:22)
[2020-11-11] MEDS: IPRATROPIUM NEB FS 0.5 MG/2.5 ML AMPUL.NEB NEB SCH ×2 (12:45→19:37)
[2020-11-11] MEDS: LEVALBUTEROL HCL NEB 1.25 MG/0.5 ML VIAL.NEB NEB SCH ×2 (12:45→19:37)
--- NOTE | 2020-11-11 13:15 | NUR ---
RN Note: Noted SBP 60s, HR- A-fib 120s, Dr. Vaughn notified by senior it architect and received new orders. Orders noted & carried out. Will continue to monitor.
[2020-11-11] MEDS: PHENYLEPHRINE 50 MG in IV NS 0.9% 245 ML IV PRN (13:21)
[2020-11-11] MEDS ORDERED: ROCURONIUM BROMIDE 50 MG/5 ML IV ONE (14:14)
[2020-11-11] MEDS ORDERED: ETOMIDATE 2 MG/ML VIAL IV ONE (14:14)
[2020-11-11] MEDS ORDERED: FEE EMEERGENCY 1 MIN EA MC ONE (14:14)
[2020-11-11] MEDS: NEPRO 1,000 ML BOTTLE GT SCH (14:45)
--- NOTE | 2020-11-11 15:30 | NUR ---
RT VENT CHANGES MADE PER DR SAMANTHA FREEMAN RN NOTIFIED Addendum: 11/11/20 at 1739 by SHELIA BELTRAN RT Amended: Links added.
[2020-11-11] MEDS ORDERED: ALBUMIN 25% 25 GM in PREMIX 1 EA IV PRN (17:30)
[2020-11-11] MEDS ORDERED: ACETAMINOPHEN 325 MG TABLET PO ONE (18:00)
[2020-11-11] MEDS ORDERED: diphenhydrAMINE HCL 50 MG/ML VIAL IV ONE (18:00)
[2020-11-11 18:23] LABS: ABG BASE EXCESS -2.8 mmol/L; ABG OXYGEN SATURATION 99.4 % (92.0-98.5); ABG PH 7.442 (7.350-7.450); ABG PO2 184.8 mmHg (75.0-100.0); AaDO2 497.2 mmHg; COHb 1.2 % (0.5-1.5); MetHb 4.8 % (0.0-1.5); O2Hb 93.4 % (94.0-97.0); SITE, ABG Right Radial
--- NOTE | 2020-11-11 18:28 | NUR ---
RT POST DIALYSIS AND ABG, VENT SETTINGS CHANGED BACK TO AC16, 450, 60% +5 PER MD ORDER. RN NOTIFIED. Addendum: 11/11/20 at 1829 by SHELIA BELTRAN RT Amended: Links added.
[2020-11-11] MEDS ORDERED: NOREPINEPHRINE 4 MG/4 ML AMPUL IV ONE (19:55)
--- NOTE | 2020-11-11 20:00 | NUR ---
RN NOTE RECEIVED PT IN BED, SEDATED , INTUBATED ON VENT SUPPORT WITH FIO2 60% SATING 95%, UNLABORED BRAETHING, PT IS ON PROPOFOL 5MCG/KG/HR, LEVOPHED 1 MCG, SATYA 2MCG, DOBUTAMINE 5 MCG, PT HAS OG TUBE NEPRO RUNNING AT 15 ML.HR. CHECKED FOR REPLACEMENT, NO RESIDUAL NOTED. SAFETY MEASURES IN PLACE.
[2020-11-11] MEDS: SENNOSIDES 8.6 MG TABLET PO SCH (22:42)
[2020-11-12] VITALS (34 sets, daily range): BP systolic 60–130; BP diastolic 31–78
[2020-11-12] MEDS: PHENYLEPHRINE 50 MG in IV NS 0.9% 245 ML IV PRN ×2 (01:19→03:28)
[2020-11-12] MEDS: IPRATROPIUM NEB FS 0.5 MG/2.5 ML AMPUL.NEB NEB SCH ×2 (01:31→07:35)
[2020-11-12] MEDS: LEVALBUTEROL HCL NEB 1.25 MG/0.5 ML VIAL.NEB NEB SCH ×2 (01:31→07:35)
[2020-11-12] MEDS: IV D5/ 0.9% NACL 1,000 ML IV PRN (03:46)
--- NOTE | 2020-11-12 04:00 | NUR ---
HOT BALLER PT IS IN CRITICAL CONDITION, CRUSHING, NONRESPONSIVE TO ANY STIMULI. PT IS HYPOTENSIVE, DESPITE BEING ON 3 PRESSORS MAX-LEVOPHED, PHENYLEPHRINE & DOBUTAMINE, O2 SAT DROPS TO LOWER 80'S. PT IS TOTALLY ANURIC. LEVEL VIAL MARKER CALLED TO JAMES WHATLEY /[phone]/ AND UPDATED PT'S CONDITION. HE DECIDED TO CHANGE CODE STATUS TO DNR, BUT CONTINUE ALL CURRENT TREATMENTS & MEDS. TIMBO FARR, [place] WAS NOTIFIED, CODE STATUS CHANGED TO DNR. LEVEL VIAL MARKER ED & CHRISTINA PRIMARY CARE MOTION STUDY ANALYST RN COSIGNED CODE DNR ORDER.
--- NOTE | 2020-11-12 04:05 | NUR ---
CHARGE NURSE ED CONTACTED PT'S NEPHEW , INFORMED PT'S SITUATION, THAT INSPITE OF BEING ON LEVOPHED, SATYA, DOBUTAMINE PT STILL HYPOTENSIVE, AND O2 SAT DROPPING BELOW 80%, NEPHEW DECIDED OLGUIN CODE STATUS FRON FULL CODE TO DNR.
[2020-11-12 04:34] LABS: BASOPHILS % (AUTO) 0.4 % (0.0-2.0); HEMATOCRIT 31 % (39-51); HEMOGLOBIN 9.6 g/dL (13.5-17.5); LYMPHOCYTES # (AUTO) 0.6 /CMM (0.8-4.8); LYMPHOCYTES % (AUTO) 8.9 % (20.0-44.0); MEAN CORPUSCULAR HGB CONC 31 g/dl (31.0-36.0); MEAN CORPUSCULAR VOLUME 102 fL (80-96); MONOCYTES # (AUTO) 0.4 /CMM (0.1-1.30); MONOCYTES % (AUTO) 5.3 % (2.0-12.0); NEUTROPHILS # (AUTO) 5.9 /CMM (1.8-8.9); NEUTROPHILS % (AUTO) 83.4 % (43.0-81.0); PLATELET COUNT (AUTO) 55 /CMM (150-450); RED BLOOD CELL COUNT(AUTO) 2.99 MIL/uL (4.5-6.0); WHITE BLOOD COUNT (AUTO) 7.1 K/uL (4.3-11.0)
[2020-11-12 04:45] LABS: ALANINE AMINOTRANSFERASE 42 U/L (12-78); ALBUMIN 1.9 g/dL (3.4-5.0); ALKALINE PHOSPHATASE 76 U/L (46-116); ASPARTATE AMINOTRANSFERASE 68 U/L (15-37); BILIRUBIN,TOTAL 1.8 mg/dL (0.2-1.0); CALCIUM, SERUM 7.1 mg/dL (8.5-10.1); CARBON DIOXIDE 22 mmol/L (21-32); CHLORIDE 102 mmol/L (98-107); CREATININE 3.4 mg/dL (0.6-1.3); GLUCOSE 319 mg/dL (74-106); MAGNESIUM 1.5 mg/dL (1.8-2.4); PHOSPHORUS 3.8 mg/dL (2.5-4.9); POTASSIUM 3.3 mmol/L (3.5-5.1); SODIUM SERUM 137 mmol/L (136-145); TOTAL PROTEIN, SERUM 5.1 g/dL (6.4-8.2); UREA NITROGEN, BLOOD 19 mg/dL (7-18)
--- NOTE | 2020-11-12 05:04 | NUR ---
04:30 Hrs was advised by Audi Hernandez in ICU Department that Cx Xray for this patient will be done later this morning 07:00 Hrs due to patient status being unstable currently; End of Report...
[2020-11-12] MEDS: PIPERACILLIN /TAZOBACTAM 2.25 G in IV D5W 50 ML IV SCH (05:15)
[2020-11-12 05:53] LABS: ABG BASE EXCESS -8.4 mmol/L; ABG OXYGEN SATURATION 64.5 % (92.0-98.5); ABG PCO2 47.4 mmHg (35.0-45.0); ABG PH 7.221 (7.350-7.450); ABG PO2 39.3 mmHg (75.0-100.0); AaDO2 626.3 mmHg; COHb 0.8 % (0.5-1.5); MetHb 0.5 % (0.0-1.5); O2Hb 63.7 % (94.0-97.0); PEEP,BG 5 cm H2O
--- NOTE | 2020-11-12 05:59 | NUR ---
G DONE. NOTIFIED GLASS UNLOADING EQUIPMENT TENDER ED AND CHRISTINA SCHAFFER WITH THE RESULT.
--- NOTE | 2020-11-12 06:00 | NUR ---
RECEIVED ABG RESULT FROM RT, NOTIFIED DR FARR NO NEW ORDER.
[2020-11-12] MEDS: LEVOTHYROXINE SODIUM 25 MCG TABLET GT SCH (06:30)
--- NOTE | 2020-11-12 07:09 | NUR ---
PT REMAINED UNSTABLE WITH O2 SAT BELOW 40%, REPORT GIVEN TO ONCOMING SHIFT FOR SAM.
--- NOTE | 2020-11-12 07:10 | NUR ---
RN NOTES BILATERAL SOFT RESTRAIN REMOVED.
--- NOTE | 2020-11-12 07:20 | NUR ---
RN NOTES RECEIVED PATIENT ETT VENTILATION, DECREASED HR-48, SPO2-60%, BP-60/20, PATIENT DNR/DNI, DECREASING ABILITY HEART TONES, RESPIRATION. HOSPITALIST AWARE OF. WILL MONITORING.
--- NOTE | 2020-11-12 07:59 | NUR ---
RN NOTES PATIENT PRONOUNCED 0759 ON 11/12/2020, VIA ME VIKI SCHAFFER, AND RANJIT SCHAFFER CHARGE NURSE. PATIENT HAS NO AUDIBLE HEART RATE, NO BP, NO RR. NOTIFIED HOSPITALIST DR RIVAS, METAL OFF BEARER, ADMITTING, AND FAMILY NEPHEW NAME KARMEN CABRERA PHONE # [phone], AND GET VERBAL CONSENT RELEASE BODY TO THE [facility]. POST MORTEM CARE DONE, LABELED BELONGING, CALLED PATIENT FAMILY TO TELEVISION TUBE INSPECTOR AND LEFT MASSAGE. ID TAGS APPLIED, CALLED [facility] NAME ROB, CASE # [id number].
--- NOTE | 2020-11-12 07:59 | NUR ---
PT IS ASYSTOLIC ON MONITOR. HEART AND LUNG SOUNDS ARE ABSENT. NO SPONTANEOUS CARDIAC OR RESPIRATORY ACTIVITY. PATIENT IS NONREACTIVE TO PAINFUL STIMULI. NO CORNEAL PUPILLARY REFLEX PRESENT. PUPILS FIXED AND DILATED. TIME OF WAS 0759.
--- NOTE | 2020-11-12 08:00 | NUR ---
RT PATIENT FOUND UPON ARRIVAL. MECH VENT AND ETT REMOVED FROM ROOM.
--- NOTE | 2020-11-12 11:35 | NUR ---
RN NOTES PATIENT TRANSFERRED TO THE [facility] AT THIS TIME, VIA SECURITY PERSONNEL. BELONGING WILL QUARRY SUPERVISOR DIMENSION STONE PATIENT FAMILY FROM HOUSE SUPERVISORS OFFICE.
== END 2020-11-12 07:59 | DRG 871 ==
LOC: ER 21:05 → TELE 23:31 → MED 11-05 12:25 → ICU 11-08 11:35
PROVIDERS: ADMIT Internal Medicine
PROC: 06HY33Z Insertion of Infusion Device into Lower Vein, Percutaneous Approach (ICD-10-PCS; principal; 2020-11-06)
PROC: 5A1D70Z Performance of Urinary Filtration, Intermittent, Less than 6 Hours Per Day (ICD-10-PCS; 2020-11-06)
PROC: 5A1945Z Respiratory Ventilation, 24-96 Consecutive Hours (ICD-10-PCS; 2020-11-08)
PROC: 0BH17EZ Insertion of Endotracheal Airway into Trachea, Via Natural or Artificial Opening (ICD-10-PCS; 2020-11-08)
PROC: 5A2204Z Restoration of Cardiac Rhythm, Single (ICD-10-PCS; 2020-11-08)
PROC: 30233K1 Transfusion of Nonautologous Frozen Plasma into Peripheral Vein, Percutaneous Approach (ICD-10-PCS; 2020-11-09)
PROC: 02HV33Z Insertion of Infusion Device into Superior Vena Cava, Percutaneous Approach (ICD-10-PCS; 2020-11-09)
PROC: B548ZZA Ultrasonography of Superior Vena Cava, Guidance (ICD-10-PCS; 2020-11-09)
PROC: 30233R1 Transfusion of Nonautologous Platelets into Peripheral Vein, Percutaneous Approach (ICD-10-PCS; 2020-11-10)
PROC: 30233N1 Transfusion of Nonautologous Red Blood Cells into Peripheral Vein, Percutaneous Approach (ICD-10-PCS; 2020-11-11)
PROC: 5A1935Z Respiratory Ventilation, Less than 24 Consecutive Hours (ICD-10-PCS; 2020-11-11)
PROC: 0BH17EZ Insertion of Endotracheal Airway into Trachea, Via Natural or Artificial Opening (ICD-10-PCS; 2020-11-11)
DX: A41.9 Sepsis, unspecified organism (principal); J69.0 Pneumonitis due to inhalation of food and vomit; E43 Unspecified severe protein-calorie malnutrition; I50.23 Acute on chronic systolic (congestive) heart failure; G92 Toxic encephalopathy; N18.6 End stage renal disease; N17.0 Acute kidney failure with tubular necrosis; J96.01 Acute respiratory failure with hypoxia; D68.59 Other primary thrombophilia; I13.2 Hypertensive heart and chronic kidney disease with heart failure and with stage 5 chronic kidney disease, or end stage renal disease; D61.818 Other pancytopenia; I48.20 Chronic atrial fibrillation, unspecified; E87.4 Mixed disorder of acid-base balance; I42.9 Cardiomyopathy, unspecified; J98.11 Atelectasis; D62 Acute posthemorrhagic anemia; D68.9 Coagulation defect, unspecified; Z66 Do not resuscitate; I25.10 Atherosclerotic heart disease of native coronary artery without angina pectoris; R62.7 Adult failure to thrive; D63.1 Anemia in chronic kidney disease; Z20.822 Contact with and (suspected) exposure to COVID-19; I46.9 Cardiac arrest, cause unspecified; F03.90 Unspecified dementia, unspecified severity, without behavioral disturbance, psychotic disturbance, mood disturbance, and anxiety; E03.9 Hypothyroidism, unspecified; Z79.01 Long term (current) use of anticoagulants; Z86.73 Personal history of transient ischemic attack (TIA), and cerebral infarction without residual deficits; Z95.5 Presence of coronary angioplasty implant and graft; N13.9 Obstructive and reflux uropathy, unspecified; R74.01 Elevation of levels of liver transaminase levels; E80.6 Other disorders of bilirubin metabolism; Z79.899 Other long term (current) drug therapy; Z74.09 Other reduced mobility; N40.0 Benign prostatic hyperplasia without lower urinary tract symptoms; I65.21 Occlusion and stenosis of right carotid artery; D63.8 Anemia in other chronic diseases classified elsewhere; Z90.5 Acquired absence of kidney; Z95.2 Presence of prosthetic heart valve; F09 Unspecified mental disorder due to known physiological condition; Z99.2 Dependence on renal dialysis; I25.2 Old myocardial infarction; F01.50 Vascular dementia, unspecified severity, without behavioral disturbance, psychotic disturbance, mood disturbance, and anxiety; E53.8 Deficiency of other specified B group vitamins; N25.0 Renal osteodystrophy; D69.6 Thrombocytopenia, unspecified
CPT/HCPCS: 31720; 36415; 36600; 71045-TC; 76700-TC; 80048-TC; 80053-TC; 80061-TC; 80076-TC; 81001; 82728-TC; 82784; 82803-TC; 82962-TC; 83540-TC; 83605-TC; 83735-TC; 83880; 84100-TC; 84153-TC; 84155; 84165; 84439-TC; 84443-TC; 84478-TC; 84484-TC; 85025-TC; 85027-TC; 85396; 85610-TC; 85730-TC; 86022; 86225; 86235; 86334; 86431-TC; 86706; 86803; 86850-TC; 87040-TC; 87081-TC; 87340; 90935-TC; 94002-TC; 94003-TC; 94760-TC; 94762-TC; 94799-TC; A4216; A6253; A6403; C1750; C1751; C9803; G0378; J0171; J0456; J0696; J1200; J1250; J1265; J2270; J2370; J2543; J3430; J3480; J3490; J7030; J7042; J7050; J7060; J7120; P9016-BL; P9017-BL; P9034-BL; P9047